=== PATIENT | female | born 1940 | race Caucasian/White ===

== ENCOUNTER 2019-08-06 10:25 | Inpatient (IN) ==
[2019-08-06] MEDS ORDERED: Acetaminophen 325 MG TABLET PO PRN (13:47)
[2019-08-06] MEDS ORDERED: Naloxone 0.4 MG/ML INJ IVP PRN (13:47)
[2019-08-06] MEDS ORDERED: cefTRIAXone 1,000 MG in 0.9 % Sodium Chloride Mini Bag 100 ML IVPB ONE (14:23)
[2019-08-06] MEDS ORDERED: Albumin 25% 25gram/100mL 25 GM/100 ML IV.SOLN IVPB ONE (15:47)
[2019-08-06] MEDS: *HR* OxyCODONE Immed Rel 5 MG TABLET PO PRN ×2 (15:49→21:55)
[2019-08-06] MEDS ORDERED: 0.9 % Sodium Chloride 1,000 ML IVC SCH (16:00)
[2019-08-06] MEDS ORDERED: cefTRIAXone 1,000 MG in Water for inj. (sterile) 10 ML IVP ONE (16:02)
[2019-08-06] MEDS ORDERED: 0.9 % Sodium Chloride 1,000 ML ONE (16:57)
[2019-08-06] MEDS: hydrALAZINE 25 MG TABLET PO SCH ×2 (17:13→21:42)
[2019-08-06] MEDS: *HR* HYDROcodone/Acet 5/325 mg TABLET PO PRN (17:33)
[2019-08-06] MEDS: Insulin LISPRO 300 UNITS/3 ML VIAL SQ SCH ×2 (17:35→21:39)
[2019-08-06 18:32] LABS: Bilirubin,Urine Negative (Negative); Blood,Urine Negative (Negative); Clarity,Urine Cloudy (Clear); Color,Urine Yellow (Yellow); Glucose,Urine (UA) Normal (Normal); Ketones,Urine Negative (Negative); Leukocyte Esterase,Urine Large (Negative); Nitrite,Urine Negative (Negative); Protein,Urine Negative (Neg-Trace); Specific Gravity,Urine 1.015 (1.010-1.025); Urobilinogen,Urine Normal (Normal)
[2019-08-06 18:34] LABS: Bacteria,Urine None Seen per hpf (None-Few); Hyaline Casts,Urine None Seen per lpf (None-Few); Squamous Epithelial Cell,Urine Moderate per lpf (None-Few); WBC,Urine TNTC per hpf (0-3)
[2019-08-06 18:45] LABS: Sodium, Urine 73.5 mEq/L
[2019-08-06] MEDS ORDERED: 0.9 % Sodium Chloride 500 ML IVC SCH (19:45)
[2019-08-07] MEDS: *HR* HYDROcodone/Acet 5/325 mg TABLET PO PRN ×2 (00:38→09:17)
[2019-08-07] MEDS: *HR* OxyCODONE Immed Rel 5 MG TABLET PO PRN ×3 (04:46→21:15)
[2019-08-07 06:23] LABS: Basophils % 0.3 %; Eosinophils # 0.2 K/mcL (0.0-0.6); Hematocrit 26.6 % (35.3-44.9); Hemoglobin 8.4 g/dL (11.5-15.4); Immature Granulocytes % 1.6 % (0-4); Immature Platelets 6.9 % (1.1-6.1); Lymphocytes % 27.1 %; Mean Corpuscular HGB Conc 31.6 g/dL (31.6-35.5); Mean Corpuscular Hemoglobin 34.9 pg (28.0-33.3); Mean Corpuscular Volume 110.4 fL (83.0-100.0); Mean Platelet Volume 12.4 fL (9.4-12.4); Monocytes # 0.3 K/mcL (0.0-1.3); Monocytes % 8.6 %; Neutrophils # 2.2 K/mcL (1.6-8.9); Red Blood Count 2.41 M/mcL (3.82-4.97); Red Cell Distribution Width 13.8 % (11.5-14.5); Segmented Neutrophils % 58.4 %; White Blood Count 3.7 K/mcL (4.3-11.1)
[2019-08-07 06:36] LABS: Platelet Count 89 K/mcL (140-400)
[2019-08-07 06:39] LABS: Albumin 3.2 g/dL (3.5-5.7); Albumin/Globulin Ratio 1.5 (1.1-2.2); Bilirubin,Total 0.5 mg/dL (0.3-1.0); Calcium 8.7 mg/dL (8.6-10.3); Globulin 2.2 g/dL (2.4-3.5); Potassium 5.1 mEq/L (3.5-5.1); Total Protein 5.4 g/dL (6.4-8.9)
[2019-08-07 06:49] LABS: % Iron Saturation 16 % (15-50); Iron 30 mcg/dL (50-170); Lactate Dehydrogenase 194 Units/L (140-271); Transferrin 136 mg/dL (203-362); Troponin I < 0.03 ng/mL (< 0.04)
[2019-08-07 06:58] LABS: Ferritin 50 ng/mL (10-120)
[2019-08-07 07:02] LABS: Folate 9.8 ng/mL (3.0-16.0)
[2019-08-07] MEDS: Tiotropium 18 MCG inhalation IH SCH (07:30)
[2019-08-07 07:56] LABS: Anisocytosis 1+ (Not Present)
[2019-08-07 07:57] LABS: Macrocytosis Present (Not Present)
[2019-08-07 07:58] LABS: Polychromasia 1+ (Not Present)
[2019-08-07] MEDS ORDERED: cefTRIAXone 2,000 MG in Water for inj. (sterile) 20 ML IVP SCH (08:00)
[2019-08-07] MEDS ORDERED: cefTRIAXone 2,000 MG in 0.9 % Sodium Chloride Mini Bag 100 ML IVPB SCH (08:00)
[2019-08-07 08:04] LABS: Large Platelets Present (Not Present); Platelet Estimate Slight Decrease (Normal)
[2019-08-07] MEDS ORDERED: D5% in Water 1,000 ML IVC PRN (08:08)
[2019-08-07] MEDS ORDERED: *HR* Dextrose 50 % in Water (Syg) 50 ML SYRINGE IVP PRN (08:08)
[2019-08-07] MEDS ORDERED: Dextrose Gel 15 GM/37.5 ML TUBE PO PRN ×2 (08:08)
[2019-08-07] MEDS ORDERED: amLODIPine 5 MG TABLET PO SCH (09:00)
[2019-08-07] MEDS ORDERED: hydrALAZINE 25 MG TABLET PO SCH (09:00)
[2019-08-07] MEDS: Isosorbide MONOnitrate (24 HR) 60 MG TAB.ER.24H PO SCH (09:17)
[2019-08-07] MEDS: Aspirin Enteric Coated 81 MG Tablet PO SCH (09:18)
[2019-08-07] MEDS: Insulin LISPRO 300 UNITS/3 ML VIAL SQ SCH ×4 (09:18→20:48)
[2019-08-07] MEDS: cefTRIAXone 2,000 MG in 0.9 % Sodium Chloride Mini Bag 100 ML IVPB SCH (09:18)
[2019-08-07] MEDS ORDERED: Albumin 25% 25gram/100mL 25 GM/100 ML IV.SOLN IVPB ONE (11:00)
[2019-08-07] MEDS ORDERED: 0.9 % Sodium Chloride 1,000 ML IVC SCH (11:00)
[2019-08-07] MEDS ORDERED: amLODIPine 5 MG TABLET PO ONE (12:10)
[2019-08-07] MEDS ORDERED: 0.9 % Sodium Chloride 500 ML IVC SCH (12:28)
[2019-08-07] MEDS: hydrALAZINE 25 MG TABLET PO SCH ×2 (16:06→20:45)
[2019-08-07] MEDS ORDERED: Acetaminophen IV 1,000 MG/100 ML INFUS..BTL IVPB ONE (23:50)
[2019-08-08] MEDS ORDERED: methylPREDNISolone 125 MG/2 ML VIAL IVP ONE (00:13)
[2019-08-08 00:15] LABS: ABG Base Excess 2 mEq/L (-2 to 3); ABG HCO3 29 mEq/L (21-27); ABG Oxygen Saturation 94 % (95-98); ABG PCO2 58 mmHg (35-45); ABG PO2 80 mmHg (85-104); ABG TCO2 31 mEq/L (20-26)
[2019-08-08] MEDS: Ipratropium/Albuterol Neb 3 ML IH SCH ×6 (00:27→20:25)
[2019-08-08] MEDS ORDERED: *HR* LORazepam 2 MG/ML VIAL IVP ONE (00:45)
[2019-08-08 06:42] LABS: Basophils % 0.2 %; Eosinophils % 0.4 %; Hematocrit 30.1 % (35.3-44.9); Hemoglobin 9.5 g/dL (11.5-15.4); Immature Granulocytes % 1.8 % (0-4); Lymphocytes # 0.4 K/mcL (0.6-4.6); Lymphocytes % 8.5 %; Mean Corpuscular HGB Conc 31.6 g/dL (31.6-35.5); Mean Corpuscular Hemoglobin 34.5 pg (28.0-33.3); Mean Corpuscular Volume 109.5 fL (83.0-100.0); Mean Platelet Volume 12.7 fL (9.4-12.4); Monocytes # 0.1 K/mcL (0.0-1.3); Monocytes % 2.2 %; Neutrophils # 3.9 K/mcL (1.6-8.9); Platelet Count 103 K/mcL (140-400); Red Blood Count 2.75 M/mcL (3.82-4.97); Red Cell Distribution Width 13.8 % (11.5-14.5); Segmented Neutrophils % 86.9 %; White Blood Count 4.5 K/mcL (4.3-11.1)
[2019-08-08 06:58] LABS: Calcium 9.5 mg/dL (8.6-10.3); Potassium 6.2 mEq/L (3.5-5.1)
[2019-08-08] MEDS: Tiotropium 18 MCG inhalation IH SCH (07:24)
[2019-08-08] MEDS: hydrALAZINE 25 MG TABLET PO SCH ×3 (10:21→20:57)
[2019-08-08] MEDS: Aspirin Enteric Coated 81 MG Tablet PO SCH (10:22)
[2019-08-08] MEDS: amLODIPine 5 MG TABLET PO SCH (10:22)
[2019-08-08] MEDS: Isosorbide MONOnitrate (24 HR) 60 MG TAB.ER.24H PO SCH (10:22)
[2019-08-08] MEDS: cefTRIAXone 2,000 MG in 0.9 % Sodium Chloride Mini Bag 100 ML IVPB SCH (10:23)
[2019-08-08] MEDS: Insulin LISPRO 300 UNITS/3 ML VIAL SQ SCH ×4 (10:25→21:09)
[2019-08-08] MEDS: *HR* HYDROcodone/Acet 5/325 mg TABLET PO PRN (10:39)
[2019-08-08 11:53] LABS: Calcium 9.4 mg/dL (8.6-10.3); Potassium 5.6 mEq/L (3.5-5.1)
[2019-08-08] MEDS: *HR* OxyCODONE Immed Rel 5 MG TABLET PO PRN (20:58)
[2019-08-09] MEDS: Ipratropium/Albuterol Neb 3 ML IH SCH ×7 (00:21→23:01)
[2019-08-09] MEDS: *HR* OxyCODONE Immed Rel 5 MG TABLET PO PRN ×3 (04:53→20:27)
[2019-08-09 04:54] LABS: Basophils % 0.2 %; Hematocrit 26.6 % (35.3-44.9); Hemoglobin 8.4 g/dL (11.5-15.4); Mean Corpuscular HGB Conc 31.6 g/dL (31.6-35.5); Red Cell Distribution Width 13.6 % (11.5-14.5)
[2019-08-09 04:55] LABS: Eosinophils # 0.1 K/mcL (0.0-0.6); Eosinophils % 0.9 %; Immature Granulocytes % 1.3 % (0-4); Immature Platelets 7.1 % (1.1-6.1); Lymphocytes # 0.6 K/mcL (0.6-4.6); Lymphocytes % 11.3 %; Mean Corpuscular Hemoglobin 34.9 pg (28.0-33.3); Mean Corpuscular Volume 110.4 fL (83.0-100.0); Mean Platelet Volume 12.3 fL (9.4-12.4); Monocytes # 0.2 K/mcL (0.0-1.3); Monocytes % 4.5 %; Neutrophils # 4.3 K/mcL (1.6-8.9); Platelet Count 101 K/mcL (140-400); Red Blood Count 2.41 M/mcL (3.82-4.97); Segmented Neutrophils % 81.8 %; White Blood Count 5.3 K/mcL (4.3-11.1)
[2019-08-09 05:11] LABS: Calcium 9.2 mg/dL (8.6-10.3); Potassium 5.5 mEq/L (3.5-5.1)
[2019-08-09 05:50] LABS: Macrocytosis Present (Not Present); Platelet Estimate Slight Decrease (Normal)
[2019-08-09] MEDS: Tiotropium 18 MCG inhalation IH SCH (07:36)
[2019-08-09] MEDS: Insulin LISPRO 300 UNITS/3 ML VIAL SQ SCH ×4 (07:52→20:29)
[2019-08-09] MEDS: Aspirin Enteric Coated 81 MG Tablet PO SCH (08:00)
[2019-08-09] MEDS: Isosorbide MONOnitrate (24 HR) 60 MG TAB.ER.24H PO SCH (08:00)
[2019-08-09] MEDS: *HR* HYDROcodone/Acet 5/325 mg TABLET PO PRN ×2 (08:00→16:24)
[2019-08-09] MEDS: hydrALAZINE 25 MG TABLET PO SCH ×3 (08:00→20:28)
[2019-08-09] MEDS: amLODIPine 5 MG TABLET PO SCH (08:01)
[2019-08-09] MEDS: cefTRIAXone 2,000 MG in 0.9 % Sodium Chloride Mini Bag 100 ML IVPB SCH (08:01)
[2019-08-09 12:04] LABS: Bilirubin,Urine Negative (Negative); Blood,Urine Negative (Negative); Clarity,Urine Clear (Clear); Color,Urine Yellow (Yellow); Glucose,Urine (UA) Normal (Normal); Ketones,Urine Negative (Negative); Leukocyte Esterase,Urine Negative (Negative); Nitrite,Urine Negative (Negative); PH,Urine 5.5 pH Units (5.0-8.0); Protein,Urine Negative (Neg-Trace); Specific Gravity,Urine 1.019 (1.010-1.025); Urobilinogen,Urine Normal (Normal)
[2019-08-10] MEDS: Ipratropium/Albuterol Neb 3 ML IH SCH ×5 (03:09→19:47)
[2019-08-10] MEDS: Tiotropium 18 MCG inhalation IH SCH (07:44)
[2019-08-10 07:57] LABS: Hematocrit 28.2 % (35.3-44.9)
[2019-08-10] MEDS: Insulin LISPRO 300 UNITS/3 ML VIAL SQ SCH ×4 (08:16→22:08)
[2019-08-10 08:23] LABS: Calcium 8.9 mg/dL (8.6-10.3); Potassium 5.3 mEq/L (3.5-5.1)
[2019-08-10] MEDS: Isosorbide MONOnitrate (24 HR) 60 MG TAB.ER.24H PO SCH (09:16)
[2019-08-10] MEDS: *HR* HYDROcodone/Acet 5/325 mg TABLET PO PRN (09:16)
[2019-08-10] MEDS: hydrALAZINE 25 MG TABLET PO SCH ×3 (09:17→22:09)
[2019-08-10] MEDS: cefTRIAXone 2,000 MG in 0.9 % Sodium Chloride Mini Bag 100 ML IVPB SCH (09:17)
[2019-08-10] MEDS: Aspirin Enteric Coated 81 MG Tablet PO SCH (09:17)
[2019-08-10] MEDS: amLODIPine 5 MG TABLET PO SCH (09:17)
[2019-08-10] MEDS: *HR* OxyCODONE Immed Rel 5 MG TABLET PO PRN ×2 (12:24→22:09)
[2019-08-10] MEDS ORDERED: Lactulose Oral Soln 20 GM/30 ML UDC PO ONE (13:56)
[2019-08-11] MEDS: Ipratropium/Albuterol Neb 3 ML IH SCH ×7 (00:05→23:59)
[2019-08-11 05:31] LABS: Hemoglobin 9.2 g/dL (11.5-15.4); Monocytes % 8.2 %; Red Cell Distribution Width 13.9 % (11.5-14.5)
[2019-08-11 05:33] LABS: Basophils % 0.5 %; Eosinophils # 0.2 K/mcL (0.0-0.6); Eosinophils % 4.6 %; Hematocrit 28.3 % (35.3-44.9); Immature Granulocytes % 2.6 % (0-4); Immature Platelets 7.9 % (1.1-6.1); Lymphocytes % 24.7 %; Mean Corpuscular HGB Conc 32.5 g/dL (31.6-35.5); Mean Corpuscular Hemoglobin 34.8 pg (28.0-33.3); Mean Corpuscular Volume 107.2 fL (83.0-100.0); Mean Platelet Volume 12.9 fL (9.4-12.4); Monocytes # 0.3 K/mcL (0.0-1.3); Neutrophils # 2.3 K/mcL (1.6-8.9); Red Blood Count 2.64 M/mcL (3.82-4.97); Segmented Neutrophils % 59.4 %; White Blood Count 3.9 K/mcL (4.3-11.1)
[2019-08-11 05:34] LABS: Calcium 8.9 mg/dL (8.6-10.3); Potassium 5.1 mEq/L (3.5-5.1)
[2019-08-11 05:37] LABS: Platelet Count 78 K/mcL (140-400)
[2019-08-11] MEDS: Tiotropium 18 MCG inhalation IH SCH (07:23)
[2019-08-11] MEDS: Insulin LISPRO 300 UNITS/3 ML VIAL SQ SCH ×4 (08:33→22:19)
[2019-08-11] MEDS: Isosorbide MONOnitrate (24 HR) 60 MG TAB.ER.24H PO SCH (08:56)
[2019-08-11] MEDS: hydrALAZINE 25 MG TABLET PO SCH ×3 (08:56→22:20)
[2019-08-11] MEDS: Aspirin Enteric Coated 81 MG Tablet PO SCH (08:56)
[2019-08-11] MEDS: cefTRIAXone 2,000 MG in 0.9 % Sodium Chloride Mini Bag 100 ML IVPB SCH (08:57)
[2019-08-11] MEDS: amLODIPine 5 MG TABLET PO SCH (08:57)
[2019-08-11] MEDS: Nystatin SUSP 5 ML UD.LIQ PO SCH ×3 (12:42→22:20)
[2019-08-11] MEDS ORDERED: SODIUM CHLORIDE/NAHCO3/KCL/PEG 4,000 ML SOLN.RECON PO ONE (17:00)
[2019-08-12] MEDS ORDERED: Ondansetron 4 MG/2 ML VIAL IVP ONE (02:12)
[2019-08-12] MEDS: Ipratropium/Albuterol Neb 3 ML IH SCH ×5 (03:31→20:07)
[2019-08-12] MEDS: Tiotropium 18 MCG inhalation IH SCH (07:23)
[2019-08-12] MEDS: Insulin LISPRO 300 UNITS/3 ML VIAL SQ SCH ×4 (08:21→21:57)
[2019-08-12] MEDS: Nystatin SUSP 5 ML UD.LIQ PO SCH ×4 (08:26→22:01)
[2019-08-12] MEDS: Aspirin Enteric Coated 81 MG Tablet PO SCH (08:26)
[2019-08-12] MEDS: amLODIPine 5 MG TABLET PO SCH (08:26)
[2019-08-12] MEDS: hydrALAZINE 25 MG TABLET PO SCH ×3 (08:26→22:01)
[2019-08-12] MEDS: Isosorbide MONOnitrate (24 HR) 60 MG TAB.ER.24H PO SCH (08:26)
[2019-08-12] MEDS: cefTRIAXone 2,000 MG in 0.9 % Sodium Chloride Mini Bag 100 ML IVPB SCH (08:27)
[2019-08-12] MEDS ORDERED: Furosemide 40 MG/4 ML VIAL IVP ONE (12:36)
[2019-08-12] MEDS ORDERED: Furosemide 40 MG TABLET PO ONE (14:12)
[2019-08-12] MEDS: cloNIDine HCl 0.1 MG TABLET PO SCH ×2 (14:51→22:01)
[2019-08-12] MEDS: Budesonide/Formoterol 160/4.5 1 PUFF INH IH SCH (20:07)
[2019-08-13] MEDS: Ipratropium/Albuterol Neb 3 ML IH SCH ×6 (00:06→20:03)
[2019-08-13] MEDS: Budesonide/Formoterol 160/4.5 1 PUFF INH IH SCH ×2 (07:30→20:03)
[2019-08-13] MEDS: Tiotropium 18 MCG inhalation IH SCH (07:34)
[2019-08-13 08:17] LABS: Basophils % 0.3 %
[2019-08-13 08:19] LABS: Eosinophils # 0.1 K/mcL (0.0-0.6); Eosinophils % 3.7 %; Hematocrit 27.3 % (35.3-44.9); Hemoglobin 8.9 g/dL (11.5-15.4); Immature Platelets 8.8 % (1.1-6.1); Lymphocytes # 0.5 K/mcL (0.6-4.6); Lymphocytes % 13.8 %; Mean Corpuscular HGB Conc 32.6 g/dL (31.6-35.5); Mean Corpuscular Hemoglobin 34.5 pg (28.0-33.3); Mean Corpuscular Volume 105.8 fL (83.0-100.0); Mean Platelet Volume 11.7 fL (9.4-12.4); Monocytes # 0.3 K/mcL (0.0-1.3); Monocytes % 7.8 %; Nucleated Red Blood Cells 0.5 /100 WBC (0); Red Blood Count 2.58 M/mcL (3.82-4.97); Red Cell Distribution Width 13.5 % (11.5-14.5); Segmented Neutrophils % 69.4 %; White Blood Count 3.8 K/mcL (4.3-11.1)
[2019-08-13 08:23] LABS: Neutrophils # 2.6 K/mcL (1.6-8.9); Platelet Count 76 K/mcL (140-400)
[2019-08-13 08:42] LABS: Calcium 8.9 mg/dL (8.6-10.3); Potassium 4.1 mEq/L (3.5-5.1)
[2019-08-13] MEDS: Insulin LISPRO 300 UNITS/3 ML VIAL SQ SCH ×4 (08:52→20:50)
[2019-08-13] MEDS: Isosorbide MONOnitrate (24 HR) 60 MG TAB.ER.24H PO SCH (09:39)
[2019-08-13] MEDS: cloNIDine HCl 0.1 MG TABLET PO SCH ×3 (09:39→20:29)
[2019-08-13] MEDS: amLODIPine 5 MG TABLET PO SCH (09:39)
[2019-08-13] MEDS: hydrALAZINE 25 MG TABLET PO SCH ×3 (09:39→20:29)
[2019-08-13] MEDS: cefTRIAXone 2,000 MG in 0.9 % Sodium Chloride Mini Bag 100 ML IVPB SCH (09:40)
[2019-08-13] MEDS: Aspirin Enteric Coated 81 MG Tablet PO SCH (09:40)
[2019-08-13] MEDS: Nystatin SUSP 5 ML UD.LIQ PO SCH ×4 (09:40→20:31)
[2019-08-13] MEDS ORDERED: Furosemide 40 MG TABLET PO ONE (12:44)
[2019-08-13] MEDS ORDERED: Lidocaine -MPF 2% 2 ML VIAL ONE (12:56)
[2019-08-13] MEDS ORDERED: Propofol 500 MG/50 ML INFUS..BTL ONE (12:56)
[2019-08-13] MEDS ORDERED: *HR* Propofol 200 MG/20 ML VIAL IVP ONE (12:56)
[2019-08-13] MEDS: *HR* OxyCODONE Immed Rel 5 MG TABLET PO PRN (20:29)
[2019-08-14] MEDS: Ipratropium/Albuterol Neb 3 ML IH SCH ×3 (00:09→07:36)
[2019-08-14 06:17] LABS: Basophils % 0.4 %; Mean Corpuscular Hemoglobin 34.3 pg (28.0-33.3); Red Cell Distribution Width 13.4 % (11.5-14.5)
[2019-08-14 06:19] LABS: Eosinophils # 0.1 K/mcL (0.0-0.6); Eosinophils % 4.6 %; Hematocrit 26.7 % (35.3-44.9); Hemoglobin 8.5 g/dL (11.5-15.4); Immature Granulocytes % 6.1 % (0-4); Immature Platelets 10.4 % (1.1-6.1); Lymphocytes # 0.7 K/mcL (0.6-4.6); Lymphocytes % 27.2 %; Mean Corpuscular HGB Conc 31.8 g/dL (31.6-35.5); Mean Corpuscular Volume 107.7 fL (83.0-100.0); Mean Platelet Volume 12.6 fL (9.4-12.4); Monocytes # 0.3 K/mcL (0.0-1.3); Monocytes % 9.6 %; Neutrophils # 1.4 K/mcL (1.6-8.9); Red Blood Count 2.48 M/mcL (3.82-4.97); Segmented Neutrophils % 52.1 %; White Blood Count 2.6 K/mcL (4.3-11.1)
[2019-08-14 06:27] LABS: Platelet Count 68 K/mcL (140-400)
[2019-08-14 06:45] LABS: Calcium 8.7 mg/dL (8.6-10.3); Magnesium 1.6 mg/dL (1.6-2.6); Phosphorous 3.8 mg/dL (2.7-4.5); Potassium 4.3 mEq/L (3.5-5.1)
[2019-08-14 07:25] VITALS: BP 152/62
[2019-08-14] MEDS: Budesonide/Formoterol 160/4.5 1 PUFF INH IH SCH (07:36)
[2019-08-14] MEDS: Insulin LISPRO 300 UNITS/3 ML VIAL SQ SCH (07:43)
[2019-08-14] MEDS: Nystatin SUSP 5 ML UD.LIQ PO SCH (08:03)
[2019-08-14] MEDS: hydrALAZINE 25 MG TABLET PO SCH (08:03)
[2019-08-14] MEDS: Aspirin Enteric Coated 81 MG Tablet PO SCH (08:03)
[2019-08-14] MEDS: cloNIDine HCl 0.1 MG TABLET PO SCH (08:04)
[2019-08-14] MEDS: amLODIPine 5 MG TABLET PO SCH (08:04)
[2019-08-14] MEDS: Isosorbide MONOnitrate (24 HR) 60 MG TAB.ER.24H PO SCH (08:04)
[2019-08-14] MEDS: cefTRIAXone 2,000 MG in 0.9 % Sodium Chloride Mini Bag 100 ML IVPB SCH (08:05)
[2019-08-14] MEDS ORDERED: Tiotropium 18 MCG inhalation IH SCH (10:00)
== END 2019-08-14 10:25 | DRG 871 ==
LOC: 2ANU → SUATTDRO 12:24 → 2ANU 08-08 00:25
PROVIDERS: ADMIT Internal Medicine; ATTEND Internal Medicine

== ENCOUNTER 2019-11-23 14:19 | Inpatient (IN) ==
[2019-11-23] MEDS ORDERED: Ondansetron 4 MG/2 ML VIAL IVP PRN (17:28)
[2019-11-23] MEDS ORDERED: Naloxone 0.4 MG/ML INJ IVP PRN (17:28)
[2019-11-23] MEDS ORDERED: 0.9 % Sodium Chloride 1,000 ML IVC SCH (17:45)
[2019-11-23] MEDS ORDERED: D5% in Water 1,000 ML IVC PRN (17:50)
[2019-11-23] MEDS ORDERED: *HR* Dextrose 50 % in Water (Syg) 50 ML SYRINGE IVP PRN (17:50)
[2019-11-23] MEDS ORDERED: Dextrose Gel 15 GM/37.5 ML TUBE PO PRN ×2 (17:50)
[2019-11-23] MEDS ORDERED: Ipratropium/Albuterol Neb 3 ML IH PRN (17:52)
[2019-11-23] MEDS: predniSONE 20 MG TABLET PO SCH (18:41)
[2019-11-23] MEDS: Insulin LISPRO 300 UNITS/3 ML VIAL SQ SCH ×2 (18:41→21:19)
[2019-11-23] MEDS: amLODIPine 5 MG TABLET PO SCH (18:41)
[2019-11-23] MEDS: Azithromycin 500 MG in 0.9 % Sodium Chloride 250 ML IVPB SCH (18:43)
[2019-11-23 19:05] LABS: Adenovirus Not Detected (Not Detect); Bordetella Pertussis Not Detected (Not Detect); Chlamydophila pneumoniae Not Detected (Not Detect); Coronavirus 229E Not Detected (Not Detect); Coronavirus HKU1 Not Detected (Not Detect); Coronavirus NL63 Not Detected (Not Detect); Coronavirus OC43 Not Detected (Not Detect); Human Metapneumovirus Not Detected (Not Detect); Human Rhinovirus/Enterovirus Not Detected (Not Detect); Influenza A Subtype 2009 H1 Not Detected (Not Detect); Influenza B Not Detected (Not Detect); Mycoplasma pneumoniae Not Detected (Not Detect); Parainfluenza Virus 1 Not Detected (Not Detect); Parainfluenza Virus 2 Not Detected (Not Detect); Parainfluenza Virus 3 Not Detected (Not Detect); Parainfluenza Virus 4 Not Detected (Not Detect); Respiratory Syncytial Virus Not Detected (Not Detect)
[2019-11-23 19:35] LABS: Bilirubin,Urine Negative (Negative); Blood,Urine Negative (Negative); Clarity,Urine Clear (Clear); Color,Urine Yellow (Yellow); Glucose,Urine (UA) Normal (Normal); Ketones,Urine Negative (Negative); Leukocyte Esterase,Urine Negative (Negative); Nitrite,Urine Negative (Negative); PH,Urine 5.5 pH Units (5.0-8.0); Protein,Urine Negative (Neg-Trace); Specific Gravity,Urine 1.013 (1.010-1.025); Urobilinogen,Urine Normal (Normal)
[2019-11-23] MEDS: cloNIDine HCL 0.1 MG TABLET PO SCH (21:18)
[2019-11-23] MEDS: *HR* Heparin 5,000 UNIT/ML VIAL SQ SCH (21:18)
[2019-11-23] MEDS: hydrALAZINE 25 MG TABLET PO SCH (21:18)
[2019-11-24] MEDS: *HR* Heparin 5,000 UNIT/ML VIAL SQ SCH (05:40)
[2019-11-24 06:02] LABS: Hematocrit 27.8 % (35.3-44.9); Hemoglobin 8.7 g/dL (11.5-15.4); Immature Platelets 11.1 % (1.1-6.1); Lymphocytes # 0.5 K/mcL (0.6-4.6); Mean Corpuscular HGB Conc 31.3 g/dL (31.6-35.5); Mean Corpuscular Hemoglobin 34.5 pg (28.0-33.3); Mean Corpuscular Volume 110.3 fL (83.0-100.0); Mean Platelet Volume 13.1 fL (9.4-12.4); Red Blood Count 2.52 M/mcL (3.82-4.97); Red Cell Distribution Width 15.5 % (11.5-14.5); White Blood Count 3.1 K/mcL (4.3-11.1)
[2019-11-24 06:07] LABS: Platelet Count 77 K/mcL (140-400)
[2019-11-24 06:19] LABS: Potassium 4.2 mEq/L (3.5-5.1)
[2019-11-24 06:27] LABS: Anisocytosis 1+ (Not Present); Macrocytosis Present (Not Present); Neutrophils # 2.6 K/mcL (1.6-8.9); Platelet Estimate Slight Decrease (Normal)
[2019-11-24] MEDS: predniSONE 20 MG TABLET PO SCH (08:43)
[2019-11-24] MEDS: carvediloL 25 MG TABLET PO SCH ×2 (08:43→17:05)
[2019-11-24] MEDS: cloNIDine HCL 0.1 MG TABLET PO SCH ×3 (08:43→21:35)
[2019-11-24] MEDS: Aspirin 81 MG TAB.CHEW PO SCH (08:43)
[2019-11-24] MEDS: amLODIPine 5 MG TABLET PO SCH (08:43)
[2019-11-24] MEDS: allopurinoL 100 MG TABLET PO SCH (08:44)
[2019-11-24] MEDS: hydrALAZINE 25 MG TABLET PO SCH ×3 (08:44→21:35)
[2019-11-24] MEDS: 0.9 % Sodium Chloride 1,000 ML IVC SCH (08:45)
[2019-11-24] MEDS: Isosorbide MONOnitrate (24 HR) 60 MG TAB.ER.24H PO SCH (08:46)
[2019-11-24] MEDS: Insulin LISPRO 300 UNITS/3 ML VIAL SQ SCH ×4 (08:48→21:36)
[2019-11-24] MEDS: Ipratropium/Albuterol Neb 3 ML IH SCH ×3 (10:26→22:26)
[2019-11-24] MEDS: *HR* OxyCODONE Immed Rel 5 MG TABLET PO PRN (12:07)
[2019-11-24 15:02] LABS: Potassium 4.1 mEq/L (3.5-5.1)
[2019-11-24] MEDS: Azithromycin 500 MG in 0.9 % Sodium Chloride 250 ML IVPB SCH (17:09)
[2019-11-25] MEDS: 0.9 % Sodium Chloride 1,000 ML IVC SCH (01:51)
[2019-11-25 06:15] LABS: Eosinophils % 0.3 %
[2019-11-25 06:17] LABS: Basophils % 0.2 %; Hematocrit 27.2 % (35.3-44.9); Hemoglobin 8.7 g/dL (11.5-15.4); Immature Granulocytes % 1.3 % (0-4); Immature Platelets 11.3 % (1.1-6.1); Lymphocytes # 0.6 K/mcL (0.6-4.6); Lymphocytes % 9.4 %; Mean Corpuscular Hemoglobin 34.8 pg (28.0-33.3); Mean Corpuscular Volume 108.8 fL (83.0-100.0); Mean Platelet Volume 12.9 fL (9.4-12.4); Monocytes # 0.3 K/mcL (0.0-1.3); Monocytes % 4.9 %; Neutrophils # 5.2 K/mcL (1.6-8.9); Red Cell Distribution Width 15.4 % (11.5-14.5); Segmented Neutrophils % 83.9 %; White Blood Count 6.2 K/mcL (4.3-11.1)
[2019-11-25 06:18] LABS: Platelet Count 86 K/mcL (140-400)
[2019-11-25 06:26] LABS: Calcium 8.7 mg/dL (8.6-10.3); Potassium 4.1 mEq/L (3.5-5.1)
[2019-11-25] MEDS: Nitroglycerin 0.4 MG TAB.SUBL SL PRN ×2 (06:39→06:54)
[2019-11-25] MEDS: Ipratropium/Albuterol Neb 3 ML IH SCH ×3 (07:47→22:03)
[2019-11-25] MEDS: cloNIDine HCL 0.1 MG TABLET PO SCH ×3 (08:25→19:52)
[2019-11-25] MEDS: Isosorbide MONOnitrate (24 HR) 60 MG TAB.ER.24H PO SCH (08:25)
[2019-11-25] MEDS: Aspirin 81 MG TAB.CHEW PO SCH (08:25)
[2019-11-25] MEDS: allopurinoL 100 MG TABLET PO SCH (08:25)
[2019-11-25] MEDS: amLODIPine 5 MG TABLET PO SCH (08:25)
[2019-11-25] MEDS: Insulin LISPRO 300 UNITS/3 ML VIAL SQ SCH ×4 (08:26→20:01)
[2019-11-25] MEDS: carvediloL 25 MG TABLET PO SCH ×2 (08:26→15:43)
[2019-11-25] MEDS: hydrALAZINE 25 MG TABLET PO SCH ×3 (08:26→19:52)
[2019-11-25] MEDS: predniSONE 20 MG TABLET PO SCH (08:26)
[2019-11-25] MEDS: *HR* OxyCODONE Immed Rel 5 MG TABLET PO PRN ×2 (15:42→23:47)
[2019-11-25] MEDS: Azithromycin 250 MG TABLET PO SCH (15:43)
[2019-11-25] MEDS: Insulin DETEMIR 100 UNIT/ML X5UNITS SQ SCH (19:52)
[2019-11-25] MEDS: Methyl Salicylate/Menthol 57 APPL/57 GM TUBE TP PRN (19:54)
[2019-11-26 04:41] LABS: Hematocrit 28.7 % (35.3-44.9); Hemoglobin 8.9 g/dL (11.5-15.4); Immature Platelets 9.8 % (1.1-6.1); Mean Platelet Volume 12.3 fL (9.4-12.4); Red Blood Count 2.54 M/mcL (3.82-4.97); Red Cell Distribution Width 15.4 % (11.5-14.5); White Blood Count 7.6 K/mcL (4.3-11.1)
[2019-11-26 04:53] LABS: Platelet Count 90 K/mcL (140-400)
[2019-11-26 04:59] LABS: Potassium 4.2 mEq/L (3.5-5.1)
[2019-11-26 06:06] LABS: Eosinophils # 0.2 K/mcL (0.0-0.6); Lymphocytes # 0.6 K/mcL (0.6-4.6); Monocytes # 0.3 K/mcL (0.0-1.3); Neutrophils # 6.5 K/mcL (1.6-8.9); Platelet Estimate Slight Decrease (Normal)
[2019-11-26] MEDS: allopurinoL 100 MG TABLET PO SCH (07:41)
[2019-11-26] MEDS: Aspirin 81 MG TAB.CHEW PO SCH (07:41)
[2019-11-26] MEDS: carvediloL 25 MG TABLET PO SCH ×2 (07:41→16:32)
[2019-11-26] MEDS: predniSONE 20 MG TABLET PO SCH (07:41)
[2019-11-26] MEDS: Azithromycin 250 MG TABLET PO SCH (07:41)
[2019-11-26] MEDS: Isosorbide MONOnitrate (24 HR) 60 MG TAB.ER.24H PO SCH (07:41)
[2019-11-26] MEDS: hydrALAZINE 25 MG TABLET PO SCH ×3 (07:41→20:08)
[2019-11-26] MEDS: cloNIDine HCL 0.1 MG TABLET PO SCH ×3 (07:41→20:10)
[2019-11-26] MEDS: amLODIPine 5 MG TABLET PO SCH (07:41)
[2019-11-26] MEDS: Insulin LISPRO 300 UNITS/3 ML VIAL SQ SCH ×4 (07:42→20:11)
[2019-11-26] MEDS: Methyl Salicylate/Menthol 57 APPL/57 GM TUBE TP PRN ×2 (07:47→23:17)
[2019-11-26] MEDS: Ipratropium/Albuterol Neb 3 ML IH SCH ×3 (07:51→22:13)
[2019-11-26] MEDS ORDERED: Furosemide 20 MG TABLET PO ONE (12:12)
[2019-11-26] MEDS: *HR* OxyCODONE Immed Rel 5 MG TABLET PO PRN (16:32)
[2019-11-26] MEDS: Insulin DETEMIR 100 UNIT/ML X5UNITS SQ SCH (20:10)
[2019-11-27 05:08] LABS: Calcium 8.9 mg/dL (8.6-10.3); Potassium 4.1 mEq/L (3.5-5.1)
[2019-11-27] MEDS: Ipratropium/Albuterol Neb 3 ML IH SCH ×5 (07:51→23:58)
[2019-11-27] MEDS: hydrALAZINE 25 MG TABLET PO SCH ×3 (08:14→22:34)
[2019-11-27] MEDS: cloNIDine HCL 0.1 MG TABLET PO SCH ×3 (08:14→22:33)
[2019-11-27] MEDS: carvediloL 25 MG TABLET PO SCH ×2 (08:15→16:34)
[2019-11-27] MEDS: predniSONE 20 MG TABLET PO SCH (08:15)
[2019-11-27] MEDS: Azithromycin 250 MG TABLET PO SCH (08:15)
[2019-11-27] MEDS: Aspirin 81 MG TAB.CHEW PO SCH (08:15)
[2019-11-27] MEDS: Sennosides 8.6 MG TABLET PO SCH ×2 (08:15→22:34)
[2019-11-27] MEDS: amLODIPine 5 MG TABLET PO SCH (08:16)
[2019-11-27] MEDS: Isosorbide MONOnitrate (24 HR) 60 MG TAB.ER.24H PO SCH (08:16)
[2019-11-27] MEDS: allopurinoL 100 MG TABLET PO SCH (08:16)
[2019-11-27] MEDS: Insulin LISPRO 300 UNITS/3 ML VIAL SQ SCH ×6 (08:17→22:35)
[2019-11-27] MEDS ORDERED: Furosemide 20 MG/2 ML VIAL IVP SCH (09:00)
[2019-11-27 12:42] LABS: ABG Base Excess 4 mEq/L (-2 to 3); ABG HCO3 27 mEq/L (21-27); ABG Oxygen Saturation 92 % (95-98); ABG PCO2 38 mmHg (35-45); ABG PH 7.47 pH Units (7.32-7.45); ABG PO2 60 mmHg (85-104); ABG TCO2 29 mEq/L (20-26)
[2019-11-27] MEDS: MethylPREDNISolone 40 MG/ML VIAL IVP SCH (14:03)
[2019-11-27] MEDS ORDERED: Perflutren Lipid Microsphere 1.3 ML in 0.9 % Sodium Chloride 8.7 ML IVP ONE (15:25)
[2019-11-27] MEDS ORDERED: Ipratropium Neb 0.5 MG NEBULIZER IH PRN (16:29)
[2019-11-27] MEDS: levoFLOXacin 750 MG/150 ML 750 MG/150 ML BAG IVPB SCH (16:33)
[2019-11-27] MEDS: *HR* OxyCODONE Immed Rel 5 MG TABLET PO PRN (16:48)
[2019-11-27] MEDS: Insulin DETEMIR 100 UNIT/ML X5UNITS SQ SCH (22:34)
[2019-11-28] MEDS: Ipratropium/Albuterol Neb 3 ML IH SCH ×5 (04:13→20:09)
[2019-11-28 04:57] LABS: Potassium 4.5 mEq/L (3.5-5.1)
[2019-11-28] MEDS: cloNIDine HCL 0.1 MG TABLET PO SCH ×3 (08:03→20:50)
[2019-11-28] MEDS: Sennosides 8.6 MG TABLET PO SCH ×2 (08:03→20:50)
[2019-11-28] MEDS: Isosorbide MONOnitrate (24 HR) 60 MG TAB.ER.24H PO SCH (08:03)
[2019-11-28] MEDS: carvediloL 25 MG TABLET PO SCH ×2 (08:04→16:12)
[2019-11-28] MEDS: hydrALAZINE 25 MG TABLET PO SCH ×3 (08:04→20:50)
[2019-11-28] MEDS: amLODIPine 5 MG TABLET PO SCH (08:04)
[2019-11-28] MEDS: Aspirin 81 MG TAB.CHEW PO SCH (08:04)
[2019-11-28] MEDS: allopurinoL 100 MG TABLET PO SCH (08:04)
[2019-11-28] MEDS: MethylPREDNISolone 40 MG/ML VIAL IVP SCH (08:04)
[2019-11-28] MEDS: Insulin LISPRO 300 UNITS/3 ML VIAL SQ SCH ×7 (08:06→20:46)
[2019-11-28 08:40] LABS: Eosinophils % 0.6 %; Hemoglobin 8.2 g/dL (11.5-15.4); Red Cell Distribution Width 14.6 % (11.5-14.5)
[2019-11-28 08:42] LABS: Basophils % 0.4 %; Hematocrit 25.4 % (35.3-44.9); Immature Platelets 11.4 % (1.1-6.1); Lymphocytes # 0.4 K/mcL (0.6-4.6); Lymphocytes % 6.8 %; Mean Corpuscular HGB Conc 32.3 g/dL (31.6-35.5); Mean Corpuscular Hemoglobin 35.2 pg (28.0-33.3); Mean Platelet Volume 13.3 fL (9.4-12.4); Monocytes # 0.3 K/mcL (0.0-1.3); Monocytes % 5.9 %; Neutrophils # 4.6 K/mcL (1.6-8.9); Nucleated Red Blood Cells 0.4 /100 WBC (0); Red Blood Count 2.33 M/mcL (3.82-4.97); Segmented Neutrophils % 84.3 %; White Blood Count 5.4 K/mcL (4.3-11.1)
[2019-11-28 09:02] LABS: Platelet Count 72 K/mcL (140-400)
[2019-11-28] MEDS: Furosemide 40 MG/4 ML VIAL IVP SCH (09:38)
[2019-11-28] MEDS ORDERED: Acetaminophen 325 MG TABLET PO PRN (10:44)
[2019-11-28] MEDS ORDERED: Furosemide 40 MG/4 ML VIAL IVP ONE (16:36)
[2019-11-28] MEDS ORDERED: methylPREDNISolone 125 MG/2 ML VIAL IVP ONE (16:36)
[2019-11-28] MEDS ORDERED: *HR* Heparin 5,000 UNIT/ML VIAL SQ SCH (18:00)
[2019-11-28] MEDS: *HR* OxyCODONE Immed Rel 5 MG TABLET PO PRN (20:50)
[2019-11-28] MEDS: Insulin DETEMIR 100 UNIT/ML X5UNITS SQ SCH (20:54)
[2019-11-29] MEDS: Ipratropium/Albuterol Neb 3 ML IH SCH ×7 (00:01→23:44)
[2019-11-29 01:25] LABS: Potassium 3.9 mEq/L (3.5-5.1)
[2019-11-29] MEDS: MethylPREDNISolone 40 MG/ML VIAL IVP SCH ×2 (06:33→17:55)
[2019-11-29] MEDS: Insulin LISPRO 300 UNITS/3 ML VIAL SQ SCH ×7 (07:58→22:52)
[2019-11-29] MEDS: Furosemide 40 MG/4 ML VIAL IVP SCH (08:27)
[2019-11-29] MEDS ORDERED: *HR* Succinylcholine 200 MG/10 ML VIAL IVP ONE (10:30)
[2019-11-29] MEDS ORDERED: *HR* Propofol 200 MG/20 ML VIAL IVP ONE (10:30)
[2019-11-29] MEDS ORDERED: Ondansetron 4 MG/2 ML VIAL ONE (10:30)
[2019-11-29] MEDS ORDERED: Lidocaine -MPF 2% 2 ML VIAL ONE (10:30)
[2019-11-29] MEDS ORDERED: Dexamethasone 4 MG/ML VIAL ONE (10:35)
[2019-11-29] MEDS ORDERED: *HR* Labetalol 20 MG/4 ML SYRINGE IVP ONE (11:12)
[2019-11-29] MEDS ORDERED: Albuterol 2.5 MG/3 ML NEBULIZER ONE (11:35)
[2019-11-29] MEDS ORDERED: Albuterol 2.5 MG/3 ML NEBULIZER IH ONE (11:38)
[2019-11-29] MEDS: allopurinoL 100 MG TABLET PO SCH (12:20)
[2019-11-29] MEDS: cloNIDine HCL 0.1 MG TABLET PO SCH ×3 (12:25→23:45)
[2019-11-29] MEDS: amLODIPine 5 MG TABLET PO SCH (12:25)
[2019-11-29] MEDS: Sennosides 8.6 MG TABLET PO SCH ×2 (12:25→22:51)
[2019-11-29] MEDS: Aspirin 81 MG TAB.CHEW PO SCH (12:26)
[2019-11-29] MEDS: hydrALAZINE 25 MG TABLET PO SCH ×3 (12:26→22:45)
[2019-11-29] MEDS: Isosorbide MONOnitrate (24 HR) 60 MG TAB.ER.24H PO SCH (12:26)
[2019-11-29] MEDS: carvediloL 25 MG TABLET PO SCH ×2 (12:28→17:55)
[2019-11-29] MEDS: levoFLOXacin 750 MG/150 ML 750 MG/150 ML BAG IVPB SCH (15:32)
[2019-11-29] MEDS ORDERED: Furosemide 40 MG/4 ML VIAL IVP ONE (17:00)
[2019-11-29 19:59] LABS: Source of Body Fluid LLL BAL 1; Source of Body Fluid RML BAL
[2019-11-29 20:11] LABS: Appearance of Body Fluid Cloudy (Clear)
[2019-11-29 20:12] LABS: Appearance of Body Fluid Cloudy (Clear); Volume of Body Fluid 16 mL; Volume of Body Fluid 5 mL
[2019-11-29] MEDS: Insulin DETEMIR 100 UNIT/ML X5UNITS SQ SCH (22:50)
[2019-11-30 02:03] LABS: Hematocrit 26.1 % (35.3-44.9); Hemoglobin 8.4 g/dL (11.5-15.4); Mean Corpuscular HGB Conc 32.2 g/dL (31.6-35.5); Mean Corpuscular Volume 105.7 fL (83.0-100.0); Mean Platelet Volume 12.3 fL (9.4-12.4); Platelet Count 103 K/mcL (140-400); Red Blood Count 2.47 M/mcL (3.82-4.97); Red Cell Distribution Width 13.9 % (11.5-14.5); White Blood Count 4.2 K/mcL (4.3-11.1)
[2019-11-30 03:20] LABS: Calcium 9.1 mg/dL (8.6-10.3); Potassium 3.7 mEq/L (3.5-5.1)
[2019-11-30 03:37] LABS: Lymphocytes # 0.3 K/mcL (0.6-4.6)
[2019-11-30 03:38] LABS: Ovalocytes 1+ (Not Present); Platelet Estimate Slight Decrease (Normal)
[2019-11-30] MEDS: Ipratropium/Albuterol Neb 3 ML IH SCH ×5 (03:44→19:53)
[2019-11-30] MEDS: MethylPREDNISolone 40 MG/ML VIAL IVP SCH (06:14)
[2019-11-30] MEDS: cloNIDine HCL 0.1 MG TABLET PO SCH ×3 (08:23→20:35)
[2019-11-30] MEDS: allopurinoL 100 MG TABLET PO SCH (08:24)
[2019-11-30] MEDS: hydrALAZINE 25 MG TABLET PO SCH ×3 (08:24→20:35)
[2019-11-30] MEDS: Furosemide 40 MG/4 ML VIAL IVP SCH ×2 (08:25→16:43)
[2019-11-30] MEDS: Sennosides 8.6 MG TABLET PO SCH ×2 (08:25→20:36)
[2019-11-30] MEDS: carvediloL 25 MG TABLET PO SCH ×2 (08:25→16:43)
[2019-11-30] MEDS: amLODIPine 5 MG TABLET PO SCH (08:25)
[2019-11-30] MEDS: Isosorbide MONOnitrate (24 HR) 60 MG TAB.ER.24H PO SCH (08:25)
[2019-11-30] MEDS: Insulin LISPRO 300 UNITS/3 ML VIAL SQ SCH ×7 (08:26→20:36)
[2019-11-30] MEDS: Aspirin 81 MG TAB.CHEW PO SCH (08:28)
[2019-11-30] MEDS: Insulin DETEMIR 100 UNIT/ML X5UNITS SQ SCH (20:36)
[2019-11-30] MEDS: *HR* OxyCODONE Immed Rel 5 MG TABLET PO PRN (20:50)
[2019-12-01] MEDS: Ipratropium/Albuterol Neb 3 ML IH SCH ×7 (00:02→23:46)
[2019-12-01 04:34] LABS: Eosinophils % 0.2 %; Hemoglobin 8.3 g/dL (11.5-15.4); Red Cell Distribution Width 13.8 % (11.5-14.5)
[2019-12-01 04:37] LABS: Hematocrit 25.3 % (35.3-44.9); Immature Granulocytes % 3.5 % (0-4); Immature Platelets 8.1 % (1.1-6.1); Lymphocytes # 0.2 K/mcL (0.6-4.6); Lymphocytes % 5.3 %; Mean Corpuscular HGB Conc 32.8 g/dL (31.6-35.5); Mean Corpuscular Volume 106.8 fL (83.0-100.0); Mean Platelet Volume 12.2 fL (9.4-12.4); Monocytes # 0.3 K/mcL (0.0-1.3); Neutrophils # 3.8 K/mcL (1.6-8.9); Red Blood Count 2.37 M/mcL (3.82-4.97); White Blood Count 4.5 K/mcL (4.3-11.1)
[2019-12-01 04:39] LABS: Platelet Count 95 K/mcL (140-400)
[2019-12-01 04:54] LABS: Calcium 8.6 mg/dL (8.6-10.3); Potassium 3.7 mEq/L (3.5-5.1)
[2019-12-01 04:55] LABS: Magnesium 1.9 mg/dL (1.6-2.6); Uric Acid 8.1 mg/dL (2.3-7.6)
[2019-12-01] MEDS: Aspirin 81 MG TAB.CHEW PO SCH (08:06)
[2019-12-01] MEDS: hydrALAZINE 25 MG TABLET PO SCH ×3 (08:06→21:35)
[2019-12-01] MEDS: cloNIDine HCL 0.1 MG TABLET PO SCH ×3 (08:06→21:34)
[2019-12-01] MEDS: amLODIPine 5 MG TABLET PO SCH (08:06)
[2019-12-01] MEDS: Sennosides 8.6 MG TABLET PO SCH ×2 (08:07→21:35)
[2019-12-01] MEDS: predniSONE 20 MG TABLET PO SCH (08:07)
[2019-12-01] MEDS: allopurinoL 100 MG TABLET PO SCH (08:08)
[2019-12-01] MEDS: Isosorbide MONOnitrate (24 HR) 60 MG TAB.ER.24H PO SCH (08:08)
[2019-12-01] MEDS: carvediloL 25 MG TABLET PO SCH ×2 (08:08→17:24)
[2019-12-01] MEDS: Insulin LISPRO 300 UNITS/3 ML VIAL SQ SCH ×7 (08:09→21:36)
[2019-12-01] MEDS: Furosemide 40 MG/4 ML VIAL IVP SCH ×2 (08:09→17:22)
[2019-12-01 08:44] LABS: ANA IgG by ELISA NONE DETECTED (None Detected)
[2019-12-01] MEDS ORDERED: levoFLOXacin 750 MG TABLET PO ONE (09:00)
[2019-12-01] MEDS: polyethylene glycoL 3350 17 GM POWD.PACK PO SCH (11:43)
[2019-12-01] MEDS: *HR* OxyCODONE Immed Rel 5 MG TABLET PO PRN (19:48)
[2019-12-01] MEDS: Insulin DETEMIR 100 UNIT/ML X5UNITS SQ SCH (21:35)
[2019-12-02 02:13] LABS: Basophils % 0.2 %; Hemoglobin 8.1 g/dL (11.5-15.4); Segmented Neutrophils % 81.7 %
[2019-12-02 02:15] LABS: Eosinophils % 0.7 %; Immature Platelets 8.7 % (1.1-6.1); Lymphocytes # 0.4 K/mcL (0.6-4.6); Lymphocytes % 7.7 %; Mean Corpuscular HGB Conc 32.4 g/dL (31.6-35.5); Mean Corpuscular Hemoglobin 33.6 pg (28.0-33.3); Mean Corpuscular Volume 103.7 fL (83.0-100.0); Monocytes # 0.4 K/mcL (0.0-1.3); Monocytes % 7.7 %; Red Blood Count 2.41 M/mcL (3.82-4.97); Red Cell Distribution Width 13.8 % (11.5-14.5); White Blood Count 4.6 K/mcL (4.3-11.1)
[2019-12-02 02:17] LABS: Neutrophils # 3.8 K/mcL (1.6-8.9); Platelet Count 89 K/mcL (140-400)
[2019-12-02 02:18] LABS: Platelet Estimate Decreased (Normal)
[2019-12-02 02:31] LABS: Calcium 8.7 mg/dL (8.6-10.3); Potassium 3.6 mEq/L (3.5-5.1)
[2019-12-02] MEDS: Ipratropium/Albuterol Neb 3 ML IH SCH ×6 (03:41→23:46)
[2019-12-02] MEDS: cloNIDine HCL 0.1 MG TABLET PO SCH ×3 (08:13→22:50)
[2019-12-02] MEDS: polyethylene glycoL 3350 17 GM POWD.PACK PO SCH (08:13)
[2019-12-02] MEDS: carvediloL 25 MG TABLET PO SCH ×2 (08:15→17:40)
[2019-12-02] MEDS: allopurinoL 100 MG TABLET PO SCH (08:15)
[2019-12-02] MEDS: Isosorbide MONOnitrate (24 HR) 60 MG TAB.ER.24H PO SCH (08:15)
[2019-12-02] MEDS: Aspirin 81 MG TAB.CHEW PO SCH (08:16)
[2019-12-02] MEDS: predniSONE 20 MG TABLET PO SCH (08:16)
[2019-12-02] MEDS: amLODIPine 5 MG TABLET PO SCH (08:16)
[2019-12-02] MEDS: Sennosides 8.6 MG TABLET PO SCH ×2 (08:16→22:50)
[2019-12-02] MEDS: hydrALAZINE 25 MG TABLET PO SCH ×3 (08:17→22:50)
[2019-12-02] MEDS: Furosemide 40 MG/4 ML VIAL IVP SCH ×2 (08:17→22:50)
[2019-12-02] MEDS: Insulin LISPRO 300 UNITS/3 ML VIAL SQ SCH ×7 (08:19→22:52)
[2019-12-02 10:56] LABS: Serine Protease-3 Antibody 1 AU/mL (0-19)
[2019-12-02] MEDS: *HR* OxyCODONE Immed Rel 5 MG TABLET PO PRN (16:38)
[2019-12-02] MEDS: Insulin DETEMIR 100 UNIT/ML X5UNITS SQ SCH (22:51)
[2019-12-03] MEDS: Ipratropium/Albuterol Neb 3 ML IH SCH ×6 (03:43→23:45)
[2019-12-03 05:06] LABS: Hemoglobin 8.3 g/dL (11.5-15.4); Monocytes % 6.8 %
[2019-12-03 05:08] LABS: Basophils % 0.2 %; Eosinophils % 0.8 %; Hematocrit 25.3 % (35.3-44.9); Immature Granulocytes % 2.5 % (0-4); Immature Platelets 9.8 % (1.1-6.1); Lymphocytes # 0.5 K/mcL (0.6-4.6); Lymphocytes % 10.7 %; Mean Corpuscular HGB Conc 32.8 g/dL (31.6-35.5); Mean Corpuscular Volume 103.7 fL (83.0-100.0); Mean Platelet Volume 12.6 fL (9.4-12.4); Monocytes # 0.3 K/mcL (0.0-1.3); Red Blood Count 2.44 M/mcL (3.82-4.97); Red Cell Distribution Width 13.7 % (11.5-14.5); White Blood Count 4.9 K/mcL (4.3-11.1)
[2019-12-03 05:15] LABS: Neutrophils # 3.9 K/mcL (1.6-8.9); Platelet Count 91 K/mcL (140-400)
[2019-12-03 05:26] LABS: Calcium 8.9 mg/dL (8.6-10.3); Potassium 3.6 mEq/L (3.5-5.1)
[2019-12-03] MEDS: Insulin LISPRO 300 UNITS/3 ML VIAL SQ SCH ×7 (09:08→22:26)
[2019-12-03] MEDS: Furosemide 40 MG TABLET PO SCH ×2 (09:12→16:33)
[2019-12-03] MEDS: carvediloL 25 MG TABLET PO SCH ×2 (09:12→16:33)
[2019-12-03] MEDS: Aspirin 81 MG TAB.CHEW PO SCH (09:13)
[2019-12-03] MEDS: cloNIDine HCL 0.1 MG TABLET PO SCH ×3 (09:13→22:22)
[2019-12-03] MEDS: hydrALAZINE 25 MG TABLET PO SCH ×3 (09:13→22:23)
[2019-12-03] MEDS: Isosorbide MONOnitrate (24 HR) 60 MG TAB.ER.24H PO SCH (09:13)
[2019-12-03] MEDS: allopurinoL 100 MG TABLET PO SCH (09:14)
[2019-12-03] MEDS: predniSONE 20 MG TABLET PO SCH (09:14)
[2019-12-03] MEDS: Sennosides 8.6 MG TABLET PO SCH ×2 (09:14→22:23)
[2019-12-03] MEDS: amLODIPine 5 MG TABLET PO SCH (09:14)
[2019-12-03] MEDS: polyethylene glycoL 3350 17 GM POWD.PACK PO SCH (09:19)
[2019-12-03] MEDS ORDERED: Bisacodyl 10 MG RECTAL SUPPOSITORY RC PRN (10:23)
[2019-12-03 15:45] LABS: Influenza A PCR Body Fluid NOT DETECTED; Influenza B PCR Body Fluid NOT DETECTED; RVP Body Fluid Source BAL
[2019-12-03 15:46] LABS: Influenza A PCR Body Fluid NOT DETECTED; Influenza B PCR Body Fluid NOT DETECTED; RVP Body Fluid Source BAL
[2019-12-03] MEDS ORDERED: Insulin DETEMIR 100 UNIT/ML X5UNITS SQ SCH (21:00)
[2019-12-04 02:54] LABS: Calcium 9.1 mg/dL (8.6-10.3); Potassium 3.7 mEq/L (3.5-5.1)
[2019-12-04] MEDS: Ipratropium/Albuterol Neb 3 ML IH SCH ×3 (03:55→11:11)
[2019-12-04 07:33] VITALS: BP 166/63
[2019-12-04] MEDS: Isosorbide MONOnitrate (24 HR) 60 MG TAB.ER.24H PO SCH (09:19)
[2019-12-04] MEDS: cloNIDine HCL 0.1 MG TABLET PO SCH (09:19)
[2019-12-04] MEDS: allopurinoL 100 MG TABLET PO SCH (09:20)
[2019-12-04] MEDS: carvediloL 25 MG TABLET PO SCH (09:20)
[2019-12-04] MEDS: hydrALAZINE 25 MG TABLET PO SCH (09:20)
[2019-12-04] MEDS: Sennosides 8.6 MG TABLET PO SCH (09:20)
[2019-12-04] MEDS: Furosemide 40 MG TABLET PO SCH (09:20)
[2019-12-04] MEDS: predniSONE 20 MG TABLET PO SCH (09:20)
[2019-12-04] MEDS: polyethylene glycoL 3350 17 GM POWD.PACK PO SCH (09:20)
[2019-12-04] MEDS: amLODIPine 5 MG TABLET PO SCH (09:20)
[2019-12-04] MEDS: Insulin LISPRO 300 UNITS/3 ML VIAL SQ SCH ×4 (09:26→12:14)
[2019-12-04] MEDS: *HR* OxyCODONE Immed Rel 5 MG TABLET PO PRN (09:34)
[2019-12-04] MEDS: Aspirin 81 MG TAB.CHEW PO SCH (09:34)
[2019-12-04 15:16] LABS: RSV PCR Body Fluid NOT DETECTED
== END 2019-12-04 16:17 | DRG 190 ==
LOC: 2ANU → SUATTDRO 16:40 → 2NNU 11-27 20:18 → 2NENU 12-01 19:03
PROVIDERS: ADMIT Internal Medicine; ATTEND Internal Medicine

== ENCOUNTER 2020-03-09 08:47 | Inpatient (IN) ==
[2020-03-09] MEDS ORDERED: Naloxone 0.4 MG/ML INJ IVP PRN (11:02)
[2020-03-09] MEDS: Budesonide/Formoterol 160/4.5 1 PUFF INH IH SCH ×2 (11:24→21:27)
[2020-03-09] MEDS ORDERED: Albumin 25% 25gram/100mL 25 GM/100 ML IV.SOLN IVPB ONE (11:40)
[2020-03-09] MEDS ORDERED: Furosemide 40 MG/4 ML VIAL IVP ONE (12:30)
[2020-03-09] MEDS: Insulin LISPRO 300 UNITS/3 ML VIAL SQ SCH ×3 (12:33→23:02)
[2020-03-09] MEDS: Ipratropium/Albuterol Neb 3 ML IH SCH (16:04)
[2020-03-09] MEDS: IPRATROPIUM/ALBUTEROL SULFATE 120 PUFF INHALER IH SCH ×2 (16:25→21:26)
[2020-03-09] MEDS: *HR* Heparin 5,000 UNIT/ML VIAL SQ SCH ×2 (17:17→22:00)
[2020-03-09] MEDS: hydrALAZINE 25 MG TABLET PO SCH (17:17)
[2020-03-09] MEDS: Albumin 25% 25gram/100mL 25 GM/100 ML IV.SOLN IVPB SCH (22:01)
[2020-03-09] MEDS: Acetaminophen 325 MG TABLET PO ONE (22:01)
[2020-03-09] MEDS: Furosemide 40 MG/4 ML VIAL IVP SCH (22:01)
[2020-03-09] MEDS ORDERED: *HR* LORazepam 2 MG/ML VIAL IVP ONE (22:17)
[2020-03-09] MEDS ORDERED: Acetaminophen IV 1,000 MG/100 ML INFUS..BTL IVPB ONE (22:39)
[2020-03-09 22:44] LABS: ABG Base Excess 7 mEq/L (-2 to 3); ABG HCO3 34 mEq/L (21-27); ABG Oxygen Saturation 91 % (95-98); ABG PCO2 64 mmHg (35-45); ABG PH 7.34 pH Units (7.32-7.45); ABG PO2 67 mmHg (85-104); ABG TCO2 36 mEq/L (20-26); Blood Gas Modality BiLevel
[2020-03-10 00:12] LABS: Hematocrit 27.1 % (35.3-44.9); Hemoglobin 8.5 g/dL (11.5-15.4); Mean Corpuscular HGB Conc 31.4 g/dL (31.6-35.5); Red Cell Distribution Width 19.1 % (11.5-14.5)
[2020-03-10 00:14] LABS: Immature Platelets 14.8 % (1.1-6.1); Mean Corpuscular Hemoglobin 36.8 pg (28.0-33.3); Mean Corpuscular Volume 117.3 fL (83.0-100.0); Mean Platelet Volume 13.1 fL (9.4-12.4); Platelet Count 113 K/mcL (140-400); Red Blood Count 2.31 M/mcL (3.82-4.97); White Blood Count 11.6 K/mcL (4.3-11.1)
[2020-03-10 00:29] LABS: Calcium 9.4 mg/dL (8.6-10.3); Magnesium 1.9 mg/dL (1.6-2.6); Phosphorous 4.8 mg/dL (2.7-4.5)
[2020-03-10 00:48] LABS: Lymphocytes # 0.5 K/mcL (0.6-4.6); Monocytes # 1.2 K/mcL (0.0-1.3)
[2020-03-10 00:49] LABS: Anisocytosis 2+ (Not Present); Large Platelets Present (Not Present); Macrocytosis Present (Not Present); Platelet Estimate Slight Decrease (Normal)
[2020-03-10] MEDS: hydrALAZINE 25 MG TABLET PO SCH ×2 (01:06→10:15)
[2020-03-10] MEDS: Acetaminophen 325 MG TABLET PO ONE (01:06)
[2020-03-10 01:30] LABS: INR 1.4; Prothrombin Time 15.4 Seconds (9.4-12.1)
[2020-03-10] MEDS: IPRATROPIUM/ALBUTEROL SULFATE 120 PUFF INHALER IH SCH ×3 (03:53→16:20)
[2020-03-10 06:11] LABS: Mean Corpuscular HGB Conc 30.9 g/dL (31.6-35.5)
[2020-03-10 06:13] LABS: Hemoglobin 7.1 g/dL (11.5-15.4); Immature Platelets 13.5 % (1.1-6.1); Mean Corpuscular Volume 116.8 fL (83.0-100.0); Mean Platelet Volume 13.2 fL (9.4-12.4); Red Blood Count 1.97 M/mcL (3.82-4.97); White Blood Count 4.5 K/mcL (4.3-11.1)
[2020-03-10 06:30] LABS: Potassium 3.5 mEq/L (3.5-5.1)
[2020-03-10] MEDS: *HR* Heparin 5,000 UNIT/ML VIAL SQ SCH ×2 (06:33→13:15)
[2020-03-10] MEDS ORDERED: amLODIPine 5 MG TABLET PO SCH (09:00)
[2020-03-10] MEDS: Insulin LISPRO 300 UNITS/3 ML VIAL SQ SCH ×4 (10:14→21:30)
[2020-03-10] MEDS: allopurinoL 100 MG TABLET PO SCH (10:15)
[2020-03-10] MEDS: Aspirin Enteric Coated 81 MG Tablet PO SCH (10:15)
[2020-03-10] MEDS: Furosemide 40 MG/4 ML VIAL IVP SCH ×2 (10:15→21:32)
[2020-03-10] MEDS: Albumin 25% 25gram/100mL 25 GM/100 ML IV.SOLN IVPB SCH ×2 (10:15→21:31)
[2020-03-10] MEDS: Budesonide/Formoterol 160/4.5 1 PUFF INH IH SCH ×2 (11:36→22:16)
[2020-03-10] MEDS ORDERED: *HR* LORazepam 2 MG/ML VIAL ONE (13:51)
[2020-03-10] MEDS ORDERED: *HR* LORazepam 2 MG/ML VIAL IVP ONE ×3 (13:52→22:01)
[2020-03-10] MEDS ORDERED: Morphine Sulfate 2 MG/ML SYRINGE IVP ONE (13:53)
[2020-03-10] MEDS ORDERED: Ipratropium/Albuterol Neb 3 ML ONE (14:09)
[2020-03-10 15:04] LABS: Hematocrit 24.9 % (35.3-44.9); Hemoglobin 7.7 g/dL (11.5-15.4)
[2020-03-10] MEDS: Ipratropium/Albuterol Neb 3 ML IH SCH ×2 (15:41→22:16)
[2020-03-10] MEDS: MethylPREDNISolone 40 MG/ML VIAL IVP SCH ×2 (15:47→23:23)
[2020-03-10] MEDS ORDERED: Vancomycin 1 EACH in 0.9 % Sodium Chloride 250 ML IVPB PRN (16:00)
[2020-03-10] MEDS ORDERED: Cefepime HCl 1,000 MG in Water for inj. (sterile) 10 ML IVP SCH (16:00)
[2020-03-10] MEDS ORDERED: Ipratropium/Albuterol Neb 3 ML IH ONE (16:18)
[2020-03-10] MEDS ORDERED: Vancomycin 1,500 MG/265 ML IV.SOLN IVPB ONE (16:25)
[2020-03-10] MEDS: carvediloL 25 MG TABLET PO SCH (16:27)
[2020-03-11] MEDS ORDERED: *HR* LORazepam 2 MG/ML VIAL IVP ONE (00:06)
[2020-03-11 03:45] LABS: Basophils % 0.2 %; Red Cell Distribution Width 18.5 % (11.5-14.5); White Blood Count 5.2 K/mcL (4.3-11.1)
[2020-03-11 03:47] LABS: Hematocrit 22.6 % (35.3-44.9); Hemoglobin 7.2 g/dL (11.5-15.4); Immature Granulocytes % 1.7 % (0-4); Immature Platelets 12.4 % (1.1-6.1); Lymphocytes # 0.3 K/mcL (0.6-4.6); Lymphocytes % 6.3 %; Mean Corpuscular HGB Conc 31.9 g/dL (31.6-35.5); Mean Corpuscular Hemoglobin 37.5 pg (28.0-33.3); Mean Corpuscular Volume 117.7 fL (83.0-100.0); Mean Platelet Volume 13.2 fL (9.4-12.4); Monocytes # 0.3 K/mcL (0.0-1.3); Monocytes % 5.3 %; Neutrophils # 4.5 K/mcL (1.6-8.9); Red Blood Count 1.92 M/mcL (3.82-4.97); Segmented Neutrophils % 86.5 %
[2020-03-11 03:58] LABS: Calcium 9.9 mg/dL (8.6-10.3)
[2020-03-11] MEDS: Ipratropium/Albuterol Neb 3 ML IH SCH ×8 (03:59→21:22)
[2020-03-11 04:05] LABS: Platelet Count 87 K/mcL (140-400)
[2020-03-11 05:16] LABS: Anisocytosis 2+ (Not Present); Macrocytosis Present (Not Present); Platelet Estimate Decreased (Normal)
[2020-03-11 05:17] LABS: Polychromasia 1+ (Not Present)
[2020-03-11] MEDS: MethylPREDNISolone 40 MG/ML VIAL IVP SCH ×3 (08:10→23:13)
[2020-03-11] MEDS: Aspirin Enteric Coated 81 MG Tablet PO SCH (08:11)
[2020-03-11] MEDS: Insulin LISPRO 300 UNITS/3 ML VIAL SQ SCH ×4 (08:11→22:12)
[2020-03-11] MEDS: allopurinoL 100 MG TABLET PO SCH (08:11)
[2020-03-11] MEDS: carvediloL 25 MG TABLET PO SCH ×2 (08:13→17:33)
[2020-03-11] MEDS: levoFLOXacin 500 MG/100 ML 500 MG/100 ML BAG IVPB SCH (08:14)
[2020-03-11] MEDS ORDERED: *HR* LORazepam 2 MG/ML VIAL IVP STA (08:31)
[2020-03-11] MEDS ORDERED: *HR* LORazepam 2 MG/ML VIAL ONE (08:33)
[2020-03-11] MEDS: Budesonide/Formoterol 160/4.5 1 PUFF INH IH SCH ×2 (08:39→21:22)
[2020-03-11] MEDS ORDERED: Ipratropium/Albuterol Neb 3 ML IH ONE (09:07)
[2020-03-11 09:53] LABS: ABG Base Excess 5 mEq/L (-2 to 3); ABG HCO3 30 mEq/L (21-27); ABG Oxygen Saturation 84 % (95-98); ABG PCO2 47 mmHg (35-45); ABG PH 7.41 pH Units (7.32-7.45); ABG PO2 49 mmHg (85-104); ABG TCO2 31 mEq/L (20-26); Blood Gas Pressure Support 6 cm H2O
[2020-03-11] MEDS ORDERED: 0.9 % Sodium Chloride 250 ML IVC PRN (10:04)
[2020-03-11] MEDS ORDERED: 0.9 % Sodium Chloride 1,000 ML PRIME SCH (10:15)
[2020-03-11] MEDS ORDERED: *HR* Heparin 10,000 UNIT/10 ML VIAL IV PRN (10:39)
[2020-03-11] MEDS: Dexmedetomidine HCl 400 MCG/100 ML MLS IVC SCH ×2 (10:40→17:31)
[2020-03-11] MEDS ORDERED: Vancomycin 1,500 MG/265 ML IV.SOLN IVPB SCH (13:00)
[2020-03-11] MEDS ORDERED: Vancomycin (wt based) 1,000 MG VIAL IVPB SCH (13:00)
[2020-03-11] MEDS ORDERED: *HR* Heparin 5,000 UNIT/ML VIAL ONE (14:34)
[2020-03-11] MEDS: MetroNIDAZOLE 500 MG/100 ML 500 MG/100 ML BAG IVPB SCH ×2 (15:29→22:12)
[2020-03-11] MEDS ORDERED: Cefepime HCl 1,000 MG in Water for inj. (sterile) 10 ML IVP SCH (16:30)
[2020-03-11 17:34] LABS: Hepatitis B Surface Antibody < 3.10 mIU/mL
[2020-03-11 17:45] LABS: Hepatitis B Surface Antigen Nonreactive (Nonreactive)
[2020-03-11 18:15] LABS: Hepatitis B Core IgM Nonreactive (Nonreactive)
[2020-03-11] MEDS ORDERED: 0.9 % Sodium Chloride 250 ML ONE (20:12)
[2020-03-12] MEDS: Dexmedetomidine HCl 400 MCG/100 ML MLS IVC SCH ×3 (01:45→20:30)
[2020-03-12 02:15] LABS: Red Cell Distribution Width 20.4 % (11.5-14.5)
[2020-03-12 02:17] LABS: Hematocrit 24.3 % (35.3-44.9); Hemoglobin 7.7 g/dL (11.5-15.4); Immature Platelets 13.6 % (1.1-6.1); Mean Corpuscular HGB Conc 31.7 g/dL (31.6-35.5); Mean Corpuscular Hemoglobin 35.2 pg (28.0-33.3); Mean Platelet Volume 12.9 fL (9.4-12.4); Red Blood Count 2.19 M/mcL (3.82-4.97); White Blood Count 4.5 K/mcL (4.3-11.1)
[2020-03-12 02:35] LABS: Calcium 9.3 mg/dL (8.6-10.3); Potassium 3.9 mEq/L (3.5-5.1)
[2020-03-12] MEDS: Ipratropium/Albuterol Neb 3 ML IH SCH ×4 (03:34→21:54)
[2020-03-12] MEDS: MetroNIDAZOLE 500 MG/100 ML 500 MG/100 ML BAG IVPB SCH ×3 (03:48→21:51)
[2020-03-12] MEDS ORDERED: 0.9 % Sodium Chloride 250 ML IVC PRN (06:03)
[2020-03-12 07:38] LABS: ABG Base Excess -1 mEq/L (-2 to 3); ABG HCO3 23 mEq/L (21-27); ABG Oxygen Saturation 95 % (95-98); ABG PCO2 32 mmHg (35-45); ABG PH 7.47 pH Units (7.32-7.45); ABG PO2 70 mmHg (85-104); ABG TCO2 24 mEq/L (20-26)
[2020-03-12] MEDS: Aspirin Enteric Coated 81 MG Tablet PO SCH (08:45)
[2020-03-12] MEDS: carvediloL 25 MG TABLET PO SCH ×2 (08:45→16:17)
[2020-03-12] MEDS: allopurinoL 100 MG TABLET PO SCH (08:45)
[2020-03-12] MEDS: MethylPREDNISolone 40 MG/ML VIAL IVP SCH ×3 (08:45→23:01)
[2020-03-12] MEDS: Insulin LISPRO 300 UNITS/3 ML VIAL SQ SCH ×4 (08:49→21:41)
[2020-03-12 09:28] LABS: ABG PCO2 47 mmHg (35-45); ABG PH 7.44 pH Units (7.32-7.45)
[2020-03-12 09:29] LABS: ABG Base Excess 7 mEq/L (-2 to 3); ABG HCO3 32 mEq/L (21-27); ABG Oxygen Saturation 88 % (95-98); ABG PO2 54 mmHg (85-104); ABG TCO2 33 mEq/L (20-26)
[2020-03-12] MEDS: Budesonide/Formoterol 160/4.5 1 PUFF INH IH SCH ×2 (10:02→21:55)
[2020-03-12] MEDS ORDERED: *HR* Heparin 10,000 UNIT/10 ML VIAL IV PRN (12:17)
[2020-03-12] MEDS ORDERED: Cefepime HCl 2,000 MG in Water for inj. (sterile) 20 ML IVP SCH (21:00)
[2020-03-12] MEDS ORDERED: Acetaminophen 325 MG TABLET PO PRN (21:53)
[2020-03-12] MEDS ORDERED: *HR* HYDROcodone/Acet 5/325 mg TABLET PO PRN (21:53)
[2020-03-13] MEDS: MetroNIDAZOLE 500 MG/100 ML 500 MG/100 ML BAG IVPB SCH ×3 (04:10→20:16)
[2020-03-13 04:12] LABS: Hemoglobin 8.2 g/dL (11.5-15.4); Red Cell Distribution Width 19.7 % (11.5-14.5)
[2020-03-13 04:13] LABS: Hematocrit 26.5 % (35.3-44.9); Immature Platelets 14.5 % (1.1-6.1); Mean Corpuscular HGB Conc 30.9 g/dL (31.6-35.5); Mean Corpuscular Hemoglobin 34.6 pg (28.0-33.3); Mean Corpuscular Volume 111.8 fL (83.0-100.0); Mean Platelet Volume 12.8 fL (9.4-12.4); Red Blood Count 2.37 M/mcL (3.82-4.97); White Blood Count 4.5 K/mcL (4.3-11.1)
[2020-03-13] MEDS: Ipratropium/Albuterol Neb 3 ML IH SCH ×4 (04:22→21:33)
[2020-03-13 04:32] LABS: Calcium 9.1 mg/dL (8.6-10.3)
[2020-03-13] MEDS ORDERED: *HR* Heparin 10,000 UNIT/10 ML VIAL IV PRN ×3 (08:11→13:31)
[2020-03-13] MEDS ORDERED: 0.9 % Sodium Chloride 250 ML IVC PRN ×2 (08:11→13:31)
[2020-03-13] MEDS: levoFLOXacin 500 MG/100 ML 500 MG/100 ML BAG IVPB SCH (08:33)
[2020-03-13] MEDS: carvediloL 25 MG TABLET PO SCH ×2 (08:33→16:29)
[2020-03-13] MEDS: allopurinoL 100 MG TABLET PO SCH (08:33)
[2020-03-13] MEDS: MethylPREDNISolone 40 MG/ML VIAL IVP SCH ×3 (08:33→23:29)
[2020-03-13] MEDS: Aspirin Enteric Coated 81 MG Tablet PO SCH (08:33)
[2020-03-13] MEDS: Insulin LISPRO 300 UNITS/3 ML VIAL SQ SCH ×4 (08:34→20:04)
[2020-03-13] MEDS: Budesonide/Formoterol 160/4.5 1 PUFF INH IH SCH ×2 (11:00→21:33)
[2020-03-13] MEDS ORDERED: Naloxone 0.4 MG/ML INJ IVP PRN (13:31)
[2020-03-13] MEDS ORDERED: Acetaminophen 325 MG TABLET PO PRN (13:31)
[2020-03-13] MEDS ORDERED: *HR* HYDROcodone/Acet 5/325 mg TABLET PO PRN (13:31)
[2020-03-13] MEDS ORDERED: 0.9 % Sodium Chloride 1,000 ML PRIME SCH (13:31)
[2020-03-13] MEDS ORDERED: Ondansetron 4 MG/2 ML VIAL IVP ONE ×2 (13:36→13:51)
[2020-03-13] MEDS ORDERED: *HR* Heparin 5,000 UNIT/ML VIAL SQ SCH (14:00)
[2020-03-13] MEDS: *HR* Heparin 5,000 UNIT/ML VIAL SQ SCH ×2 (14:14→20:16)
[2020-03-13] MEDS: Dexmedetomidine HCl 400 MCG/100 ML MLS IVC SCH (14:45)
[2020-03-13] MEDS ORDERED: Aminoglycoside Consult 1 EACH MC ONE (16:11)
[2020-03-13] MEDS ORDERED: Cefepime HCl 2,000 MG in Water for inj. (sterile) 20 ML IVP SCH (21:00)
[2020-03-14] MEDS: Simethicone 80 MG TAB.CHEW PO PRN (01:20)
[2020-03-14 03:18] LABS: Calcium 9.3 mg/dL (8.6-10.3); Potassium 4.2 mEq/L (3.5-5.1)
[2020-03-14 03:19] LABS: Mean Corpuscular HGB Conc 31.6 g/dL (31.6-35.5); Mean Corpuscular Hemoglobin 34.9 pg (28.0-33.3); Mean Corpuscular Volume 110.3 fL (83.0-100.0); Mean Platelet Volume 12.8 fL (9.4-12.4); Platelet Count 129 K/mcL (140-400); Red Blood Count 2.81 M/mcL (3.82-4.97); Red Cell Distribution Width 18.6 % (11.5-14.5); White Blood Count 5.3 K/mcL (4.3-11.1)
[2020-03-14] MEDS: MetroNIDAZOLE 500 MG/100 ML 500 MG/100 ML BAG IVPB SCH ×3 (03:23→20:39)
[2020-03-14 03:39] LABS: Bilirubin,Urine Small (Negative); Blood,Urine Negative (Negative); Clarity,Urine Cloudy (Clear); Color,Urine Yellow (Yellow); Glucose,Urine (UA) Normal (Normal); Ketones,Urine Trace mg/dL (Negative); Leukocyte Esterase,Urine Negative (Negative); Nitrite,Urine Negative (Negative); Protein,Urine Trace mg/dL (Neg-Trace); Specific Gravity,Urine >= 1.030 (1.010-1.025); Urobilinogen,Urine Normal (Normal)
[2020-03-14 03:40] LABS: Hemoglobin 9.8 g/dL (11.5-15.4)
[2020-03-14 03:50] LABS: Bacteria,Urine Many per hpf (None-Few); Squamous Epithelial Cell,Urine Many per hpf (None-Few)
[2020-03-14] MEDS: Ipratropium/Albuterol Neb 3 ML IH SCH ×4 (03:54→22:01)
[2020-03-14 04:27] LABS: Anisocytosis 1+ (Not Present); Lymphocytes # 0.4 K/mcL (0.6-4.6); Neutrophils # 4.8 K/mcL (1.6-8.9)
[2020-03-14 04:28] LABS: Macrocytosis Present (Not Present); Platelet Estimate Slight Decrease (Normal)
[2020-03-14] MEDS: *HR* Heparin 5,000 UNIT/ML VIAL SQ SCH ×2 (05:24→13:58)
[2020-03-14] MEDS ORDERED: Ondansetron 4 MG/2 ML VIAL IVP PRN (08:15)
[2020-03-14] MEDS: carvediloL 25 MG TABLET PO SCH ×2 (08:18→16:15)
[2020-03-14] MEDS: allopurinoL 100 MG TABLET PO SCH (08:18)
[2020-03-14] MEDS: Aspirin Enteric Coated 81 MG Tablet PO SCH (08:18)
[2020-03-14] MEDS: MethylPREDNISolone 40 MG/ML VIAL IVP SCH ×2 (08:18→16:15)
[2020-03-14] MEDS: Insulin LISPRO 300 UNITS/3 ML VIAL SQ SCH ×4 (08:19→20:38)
[2020-03-14] MEDS: Budesonide/Formoterol 160/4.5 1 PUFF INH IH SCH ×2 (10:29→22:02)
[2020-03-14] MEDS: Dexmedetomidine HCl 400 MCG/100 ML MLS IVC SCH (10:39)
[2020-03-15] MEDS: MethylPREDNISolone 40 MG/ML VIAL IVP SCH ×2 (03:12→07:17)
[2020-03-15] MEDS: *HR* Heparin 5,000 UNIT/ML VIAL SQ SCH ×4 (03:13→20:56)
[2020-03-15] MEDS: MetroNIDAZOLE 500 MG/100 ML 500 MG/100 ML BAG IVPB SCH ×2 (04:10→11:27)
[2020-03-15] MEDS: Ipratropium/Albuterol Neb 3 ML IH SCH ×4 (04:31→22:43)
[2020-03-15 06:58] LABS: Basophils % 0.1 %; Eosinophils % 0.5 %; Hematocrit 30.5 % (35.3-44.9); Immature Granulocytes % 1.9 % (0-4); Lymphocytes # 0.3 K/mcL (0.6-4.6); Lymphocytes % 3.7 %; Mean Corpuscular HGB Conc 32.8 g/dL (31.6-35.5); Mean Corpuscular Volume 109.7 fL (83.0-100.0); Mean Platelet Volume 12.6 fL (9.4-12.4); Monocytes # 0.3 K/mcL (0.0-1.3); Monocytes % 3.5 %; Neutrophils # 6.8 K/mcL (1.6-8.9); Platelet Count 119 K/mcL (140-400); Red Blood Count 2.78 M/mcL (3.82-4.97); Red Cell Distribution Width 17.5 % (11.5-14.5); Segmented Neutrophils % 90.3 %; White Blood Count 7.5 K/mcL (4.3-11.1)
[2020-03-15] MEDS: Aspirin Enteric Coated 81 MG Tablet PO SCH (07:17)
[2020-03-15] MEDS: carvediloL 25 MG TABLET PO SCH ×2 (07:17→16:39)
[2020-03-15] MEDS: allopurinoL 100 MG TABLET PO SCH (07:17)
[2020-03-15 07:18] LABS: Calcium 9.3 mg/dL (8.6-10.3); Potassium 4.3 mEq/L (3.5-5.1)
[2020-03-15] MEDS: Insulin LISPRO 300 UNITS/3 ML VIAL SQ SCH ×4 (07:18→20:55)
[2020-03-15] MEDS: Dexmedetomidine HCl 400 MCG/100 ML MLS IVC SCH (07:30)
[2020-03-15 07:42] LABS: Folate 7.9 ng/mL (3.0-16.0)
[2020-03-15] MEDS ORDERED: levoFLOXacin 500 MG/100 ML 500 MG/100 ML BAG IVPB SCH (09:00)
[2020-03-15] MEDS: Budesonide/Formoterol 160/4.5 1 PUFF INH IH SCH ×2 (09:12→22:43)
[2020-03-15] MEDS ORDERED: polyethylene glycoL 3350 17 GM POWD.PACK PO PRN (10:23)
[2020-03-15] MEDS ORDERED: Dextrose Gel 15 GM/37.5 ML TUBE PO PRN ×2 (10:29)
[2020-03-15] MEDS ORDERED: *HR* Dextrose 50 % in Water (Vial) 50 ML VIAL IVP PRN (10:29)
[2020-03-15] MEDS ORDERED: D5% in Water 1,000 ML IVC PRN (10:29)
[2020-03-15] MEDS: Sennosides 8.6 MG TABLET PO SCH (11:27)
[2020-03-15] MEDS: Insulin DETEMIR 100 UNIT/ML X5UNITS SQ SCH ×2 (11:43→20:55)
[2020-03-15] MEDS: Simethicone 80 MG TAB.CHEW PO PRN (17:53)
[2020-03-15] MEDS ORDERED: Insulin DETEMIR 100 UNIT/ML X5UNITS SQ SCH (21:00)
[2020-03-15] MEDS ORDERED: Cefepime HCl 2,000 MG in Water for inj. (sterile) 20 ML IVP SCH (21:00)
[2020-03-16] MEDS: Ipratropium/Albuterol Neb 3 ML IH SCH ×5 (04:04→21:58)
[2020-03-16 04:38] LABS: Basophils % 0.2 %; Eosinophils # 0.2 K/mcL (0.0-0.6); Eosinophils % 1.9 %; Hematocrit 29.6 % (35.3-44.9); Hemoglobin 9.6 g/dL (11.5-15.4); Immature Granulocytes % 1.2 % (0-4); Lymphocytes # 0.5 K/mcL (0.6-4.6); Lymphocytes % 5.6 %; Mean Corpuscular HGB Conc 32.4 g/dL (31.6-35.5); Mean Corpuscular Hemoglobin 35.4 pg (28.0-33.3); Mean Corpuscular Volume 109.2 fL (83.0-100.0); Mean Platelet Volume 12.5 fL (9.4-12.4); Monocytes # 0.6 K/mcL (0.0-1.3); Monocytes % 7.2 %; Neutrophils # 7.5 K/mcL (1.6-8.9); Platelet Count 112 K/mcL (140-400); Red Blood Count 2.71 M/mcL (3.82-4.97); Red Cell Distribution Width 17.1 % (11.5-14.5); Segmented Neutrophils % 83.9 %; White Blood Count 8.9 K/mcL (4.3-11.1)
[2020-03-16 04:58] LABS: Calcium 8.8 mg/dL (8.6-10.3); Potassium 4.3 mEq/L (3.5-5.1)
[2020-03-16] MEDS: Dexmedetomidine HCl 400 MCG/100 ML MLS IVC SCH (05:18)
[2020-03-16] MEDS: *HR* Heparin 5,000 UNIT/ML VIAL SQ SCH ×3 (05:35→20:20)
[2020-03-16] MEDS: Insulin LISPRO 300 UNITS/3 ML VIAL SQ SCH ×4 (07:41→20:21)
[2020-03-16] MEDS: Sennosides 8.6 MG TABLET PO SCH (07:42)
[2020-03-16] MEDS: allopurinoL 100 MG TABLET PO SCH (07:42)
[2020-03-16] MEDS: Aspirin Enteric Coated 81 MG Tablet PO SCH (07:42)
[2020-03-16] MEDS: carvediloL 25 MG TABLET PO SCH ×2 (07:42→16:43)
[2020-03-16] MEDS ORDERED: predniSONE 20 MG TABLET PO SCH ×2 (08:00→09:00)
[2020-03-16] MEDS ORDERED: Isosorbide MONOnitrate (24 HR) 60 MG TAB.ER.24H PO SCH (09:00)
[2020-03-16] MEDS: Budesonide/Formoterol 160/4.5 1 PUFF INH IH SCH ×2 (10:42→21:58)
[2020-03-16] MEDS ORDERED: D5% in Water 1,000 ML IVC PRN (16:00)
[2020-03-16] MEDS ORDERED: Acetaminophen 325 MG TABLET PO PRN (16:00)
[2020-03-16] MEDS ORDERED: *HR* HYDROcodone/Acet 5/325 mg TABLET PO PRN (16:00)
[2020-03-16] MEDS ORDERED: *HR* Heparin 10,000 UNIT/10 ML VIAL IV PRN (16:00)
[2020-03-16] MEDS ORDERED: 0.9 % Sodium Chloride 1,000 ML PRIME SCH (16:00)
[2020-03-16] MEDS ORDERED: Dextrose Gel 15 GM/37.5 ML TUBE PO PRN ×2 (16:00)
[2020-03-16] MEDS ORDERED: 0.9 % Sodium Chloride 250 ML IVC PRN (16:00)
[2020-03-16] MEDS ORDERED: *HR* Dextrose 50 % in Water (Vial) 50 ML VIAL IVP PRN (16:00)
[2020-03-16] MEDS ORDERED: Simethicone 80 MG TAB.CHEW PO PRN (16:00)
[2020-03-16] MEDS ORDERED: Naloxone 0.4 MG/ML INJ IVP PRN (16:00)
[2020-03-16] MEDS ORDERED: Dexmedetomidine HCl 400 MCG/100 ML MLS IVC SCH (16:00)
[2020-03-16] MEDS ORDERED: Ondansetron 4 MG/2 ML VIAL IVP PRN (16:00)
[2020-03-16] MEDS: predniSONE 20 MG TABLET PO SCH (16:43)
[2020-03-16] MEDS: polyethylene glycoL 3350 17 GM POWD.PACK PO PRN (20:22)
[2020-03-16] MEDS ORDERED: Insulin DETEMIR 100 UNIT/ML X5UNITS SQ SCH (21:00)
[2020-03-17] MEDS: Ipratropium/Albuterol Neb 3 ML IH SCH ×4 (03:38→21:28)
[2020-03-17] MEDS: *HR* Heparin 5,000 UNIT/ML VIAL SQ SCH ×3 (04:58→20:57)
[2020-03-17 05:42] LABS: Potassium 4.8 mEq/L (3.5-5.1)
[2020-03-17] MEDS: Isosorbide MONOnitrate (24 HR) 60 MG TAB.ER.24H PO SCH (08:22)
[2020-03-17] MEDS: allopurinoL 100 MG TABLET PO SCH (08:22)
[2020-03-17] MEDS: predniSONE 20 MG TABLET PO SCH (08:22)
[2020-03-17] MEDS: Aspirin Enteric Coated 81 MG Tablet PO SCH (08:22)
[2020-03-17] MEDS: Sennosides 8.6 MG TABLET PO SCH (08:23)
[2020-03-17] MEDS: carvediloL 25 MG TABLET PO SCH ×2 (08:23→16:17)
[2020-03-17] MEDS: polyethylene glycoL 3350 17 GM POWD.PACK PO PRN (08:24)
[2020-03-17] MEDS: Insulin LISPRO 300 UNITS/3 ML VIAL SQ SCH ×5 (08:30→20:58)
[2020-03-17] MEDS ORDERED: levoFLOXacin 500 MG/100 ML 500 MG/100 ML BAG IVPB SCH (09:00)
[2020-03-17] MEDS ORDERED: levoFLOXacin 500 MG TABLET PO SCH (09:00)
[2020-03-17] MEDS: Budesonide/Formoterol 160/4.5 1 PUFF INH IH SCH ×2 (10:56→21:28)
[2020-03-17] MEDS: Insulin DETEMIR 100 UNIT/ML X5UNITS SQ SCH (16:17)
[2020-03-18] MEDS: Ipratropium/Albuterol Neb 3 ML IH SCH ×3 (03:22→15:36)
[2020-03-18] MEDS: *HR* Heparin 5,000 UNIT/ML VIAL SQ SCH ×2 (04:53→14:47)
[2020-03-18 05:17] LABS: Basophils % 0.3 %; Eosinophils % 1.2 %; Red Cell Distribution Width 17.2 % (11.5-14.5)
[2020-03-18 05:18] LABS: Eosinophils # 0.1 K/mcL (0.0-0.6); Hematocrit 27.6 % (35.3-44.9); Immature Granulocytes % 2.6 % (0-4); Lymphocytes # 0.5 K/mcL (0.6-4.6); Mean Corpuscular HGB Conc 32.6 g/dL (31.6-35.5); Mean Corpuscular Hemoglobin 35.4 pg (28.0-33.3); Mean Corpuscular Volume 108.7 fL (83.0-100.0); Monocytes # 0.5 K/mcL (0.0-1.3); Monocytes % 7.9 %; Neutrophils # 5.2 K/mcL (1.6-8.9); Red Blood Count 2.54 M/mcL (3.82-4.97); White Blood Count 6.4 K/mcL (4.3-11.1)
[2020-03-18 05:19] LABS: Platelet Count 85 K/mcL (140-400)
[2020-03-18 05:50] LABS: Calcium 8.8 mg/dL (8.6-10.3); Potassium 4.8 mEq/L (3.5-5.1)
[2020-03-18] MEDS: allopurinoL 100 MG TABLET PO SCH (08:42)
[2020-03-18] MEDS: Sennosides 8.6 MG TABLET PO SCH (08:42)
[2020-03-18] MEDS: Isosorbide MONOnitrate (24 HR) 60 MG TAB.ER.24H PO SCH (08:42)
[2020-03-18] MEDS: Aspirin Enteric Coated 81 MG Tablet PO SCH (08:43)
[2020-03-18] MEDS: carvediloL 25 MG TABLET PO SCH (08:43)
[2020-03-18] MEDS: Insulin LISPRO 300 UNITS/3 ML VIAL SQ SCH ×4 (08:44→12:13)
[2020-03-18] MEDS: Insulin DETEMIR 100 UNIT/ML X5UNITS SQ SCH (08:44)
[2020-03-18] MEDS ORDERED: predniSONE 20 MG TABLET PO SCH (09:00)
[2020-03-18] MEDS: Budesonide/Formoterol 160/4.5 1 PUFF INH IH SCH (10:41)
[2020-03-18] MEDS ORDERED: cloNIDine HCL 0.1 MG TABLET PO SCH (11:15)
[2020-03-18 12:43] VITALS: BP 166/68
== END 2020-03-18 16:12 | DRG 871 ==
LOC: 2NENU → SUATTDRO 03-10 10:44 → 2NNU 03-10 17:42 → ICNU 03-11 08:58 → 2NNU 03-13 15:24 → 2ANU 03-16 15:55
PROVIDERS: ADMIT Internal Medicine; ATTEND Internal Medicine

== ENCOUNTER 2020-04-22 14:44 | Inpatient (IN) ==
[2020-04-22] MEDS ORDERED: Ringers Solution, Lactated 1,000 ML IVC ONE (18:30)
[2020-04-22 18:36] LABS: Adenovirus Not Detected (Not Detect); Coronavirus 229E Not Detected (Not Detect); Coronavirus HKU1 Not Detected (Not Detect); Coronavirus NL63 Not Detected (Not Detect); Coronavirus OC43 Not Detected (Not Detect)
[2020-04-22 18:38] LABS: Bordetella Pertussis Not Detected (Not Detect); Chlamydophila pneumoniae Not Detected (Not Detect); Human Metapneumovirus Not Detected (Not Detect); Human Rhinovirus/Enterovirus Not Detected (Not Detect); Influenza A Subtype 2009 H1 Not Detected (Not Detect); Influenza B Not Detected (Not Detect); Mycoplasma pneumoniae Not Detected (Not Detect); Parainfluenza Virus 1 Not Detected (Not Detect); Parainfluenza Virus 2 Not Detected (Not Detect); Parainfluenza Virus 3 Not Detected (Not Detect); Parainfluenza Virus 4 Not Detected (Not Detect); Respiratory Syncytial Virus Not Detected (Not Detect); SARS-CoV-2 Not Detected (Not Detect)
[2020-04-22] MEDS ORDERED: cefTRIAXone 1,000 MG in Water for inj. (sterile) 10 ML IVPB SCH (18:46)
[2020-04-22] MEDS ORDERED: Naloxone 0.4 MG/ML INJ IVP PRN (18:47)
[2020-04-22] MEDS ORDERED: Ipratropium/Albuterol Neb 3 ML IH PRN (18:55)
[2020-04-22] MEDS ORDERED: *HR* Dextrose 50 % in Water (Vial) 50 ML VIAL IVP PRN (18:56)
[2020-04-22] MEDS ORDERED: Dextrose Gel 15 GM/37.5 ML TUBE PO PRN ×2 (18:56)
[2020-04-22] MEDS ORDERED: D5% in Water 1,000 ML IVC PRN (18:56)
[2020-04-22] MEDS: Insulin LISPRO 300 UNITS/3 ML VIAL SQ SCH ×2 (20:41→20:42)
[2020-04-22] MEDS: Acetaminophen 325 MG TABLET PO PRN (20:54)
[2020-04-22] MEDS: 0.9 % Sodium Chloride 1,000 ML IVC SCH (20:54)
[2020-04-22] MEDS: cefTRIAXone 1,000 MG in Water for inj. (sterile) 10 ML IVP SCH (20:56)
[2020-04-22 21:03] LABS: Basophils % 0.2 %; Eosinophils # 0.1 K/mcL (0.0-0.6); Eosinophils % 1.1 %; Hemoglobin 7.5 g/dL (11.5-15.4); Immature Granulocytes % 1.3 % (0-4); Immature Platelets 11.4 % (1.1-6.1); Lymphocytes # 0.3 K/mcL (0.6-4.6); Lymphocytes % 5.8 %; Mean Corpuscular HGB Conc 31.3 g/dL (31.6-35.5); Mean Corpuscular Hemoglobin 36.4 pg (28.0-33.3); Mean Corpuscular Volume 116.5 fL (83.0-100.0); Monocytes # 0.3 K/mcL (0.0-1.3); Neutrophils # 4.6 K/mcL (1.6-8.9); Red Blood Count 2.06 M/mcL (3.82-4.97); Red Cell Distribution Width 17.9 % (11.5-14.5); Segmented Neutrophils % 85.6 %; White Blood Count 5.4 K/mcL (4.3-11.1)
[2020-04-22 21:07] LABS: Platelet Count 72 K/mcL (140-400)
[2020-04-22 21:34] LABS: Anisocytosis 1+ (Not Present); Platelet Estimate Decreased (Normal)
[2020-04-22 21:36] LABS: Macrocytosis Present (Not Present); Polychromasia 1+ (Not Present)
[2020-04-22 21:37] LABS: Hypochromasia Present (Not Present); Microcytosis Present (Not Present); Spherocytes 1+ (Not Present)
[2020-04-22 21:39] LABS: Basophilic Stippling 1+ (Not Present)
[2020-04-23 01:44] LABS: Basophils % 0.2 %; Hemoglobin 7.3 g/dL (11.5-15.4)
[2020-04-23 01:46] LABS: Eosinophils # 0.1 K/mcL (0.0-0.6); Eosinophils % 1.8 %; Hematocrit 23.5 % (35.3-44.9); Immature Granulocytes % 2.8 % (0-4); Immature Platelets 12.4 % (1.1-6.1); Lymphocytes # 0.2 K/mcL (0.6-4.6); Lymphocytes % 4.8 %; Mean Corpuscular HGB Conc 31.1 g/dL (31.6-35.5); Mean Corpuscular Hemoglobin 36.1 pg (28.0-33.3); Mean Corpuscular Volume 116.3 fL (83.0-100.0); Mean Platelet Volume 12.9 fL (9.4-12.4); Monocytes # 0.2 K/mcL (0.0-1.3); Monocytes % 4.6 %; Neutrophils # 4.3 K/mcL (1.6-8.9); Red Blood Count 2.02 M/mcL (3.82-4.97); Red Cell Distribution Width 17.8 % (11.5-14.5); Segmented Neutrophils % 85.8 %
[2020-04-23 01:47] LABS: Platelet Count 70 K/mcL (140-400)
[2020-04-23 02:06] LABS: Albumin/Globulin Ratio 1.5 (1.1-2.2); Bilirubin,Total 0.8 mg/dL (0.3-1.0); Calcium 8.2 mg/dL (8.6-10.3); Potassium 3.2 mEq/L (3.5-5.1)
[2020-04-23 02:41] LABS: Anisocytosis 1+ (Not Present); Macrocytosis Present (Not Present); Platelet Estimate Decreased (Normal)
[2020-04-23] MEDS: Insulin LISPRO 300 UNITS/3 ML VIAL SQ SCH ×4 (08:25→21:44)
[2020-04-23] MEDS: Furosemide 40 MG TABLET PO SCH ×2 (09:26→17:07)
[2020-04-23 12:38] LABS: Hematocrit 24.1 % (35.3-44.9); Hemoglobin 7.6 g/dL (11.5-15.4)
[2020-04-23] MEDS: D5% in 0.45% NACL 1,000 ML IVC SCH (14:08)
[2020-04-23] MEDS: 0.9 % Sodium Chloride 1,000 ML IVC SCH (15:31)
[2020-04-23] MEDS: cefTRIAXone 1,000 MG in Water for inj. (sterile) 10 ML IVP SCH (17:08)
[2020-04-23] MEDS: Acetaminophen 325 MG TABLET PO PRN (17:11)
[2020-04-23 18:46] LABS: Hematocrit 23.9 % (35.3-44.9); Hemoglobin 7.4 g/dL (11.5-15.4)
[2020-04-23 19:05] LABS: Calcium 8.2 mg/dL (8.6-10.3); Potassium 3.6 mEq/L (3.5-5.1)
[2020-04-24 05:58] LABS: Basophils % 0.5 %; Hemoglobin 7.4 g/dL (11.5-15.4); Red Cell Distribution Width 17.5 % (11.5-14.5)
[2020-04-24 06:00] LABS: Eosinophils # 0.2 K/mcL (0.0-0.6); Eosinophils % 6.4 %; Immature Granulocytes % 0.8 % (0-4); Immature Platelets 13.9 % (1.1-6.1); Lymphocytes # 0.6 K/mcL (0.6-4.6); Lymphocytes % 16.8 %; Mean Corpuscular HGB Conc 30.8 g/dL (31.6-35.5); Mean Corpuscular Hemoglobin 35.4 pg (28.0-33.3); Mean Corpuscular Volume 114.8 fL (83.0-100.0); Monocytes # 0.3 K/mcL (0.0-1.3); Monocytes % 7.2 %; Neutrophils # 2.6 K/mcL (1.6-8.9); Nucleated Red Blood Cells 0.5 /100 WBC (0); Red Blood Count 2.09 M/mcL (3.82-4.97); Segmented Neutrophils % 68.3 %; White Blood Count 3.8 K/mcL (4.3-11.1)
[2020-04-24 06:03] LABS: Platelet Count 70 K/mcL (140-400)
[2020-04-24 06:21] LABS: Anisocytosis 1+ (Not Present); Macrocytosis Present (Not Present); Platelet Estimate Decreased (Normal); Polychromasia 1+ (Not Present)
[2020-04-24 06:23] LABS: Calcium 8.1 mg/dL (8.6-10.3); Potassium 3.3 mEq/L (3.5-5.1)
[2020-04-24] MEDS: Insulin LISPRO 300 UNITS/3 ML VIAL SQ SCH ×4 (08:27→22:36)
[2020-04-24] MEDS: Furosemide 40 MG TABLET PO SCH ×2 (08:50→16:04)
[2020-04-24] MEDS: Ondansetron 4 MG/2 ML VIAL IVP PRN (16:04)
[2020-04-24] MEDS: cefTRIAXone 1,000 MG in Water for inj. (sterile) 10 ML IVP SCH (18:37)
[2020-04-24] MEDS: D5% in 0.45% NACL 1,000 ML IVC SCH (19:24)
[2020-04-25] MEDS ORDERED: Melatonin 3 MG TABLET PO ONE (00:45)
[2020-04-25] MEDS: Ondansetron 4 MG/2 ML VIAL IVP PRN ×2 (06:41→19:33)
[2020-04-25 07:45] LABS: Estimated Average Glucose 140 mg/dl; Hemoglobin A1C 6.5 %
[2020-04-25 07:46] LABS: Hemoglobin 7.7 g/dL (11.5-15.4); Red Cell Distribution Width 17.1 % (11.5-14.5)
[2020-04-25 07:48] LABS: Hematocrit 24.8 % (35.3-44.9); Immature Platelets 14.2 % (1.1-6.1); Mean Corpuscular Hemoglobin 35.5 pg (28.0-33.3); Mean Corpuscular Volume 114.3 fL (83.0-100.0); Mean Platelet Volume 12.9 fL (9.4-12.4); Red Blood Count 2.17 M/mcL (3.82-4.97); White Blood Count 3.3 K/mcL (4.3-11.1)
[2020-04-25 07:57] LABS: Platelet Count 81 K/mcL (140-400)
[2020-04-25 08:04] LABS: Calcium 8.8 mg/dL (8.6-10.3); Potassium 3.8 mEq/L (3.5-5.1)
[2020-04-25] MEDS ORDERED: *HR* Promethazine 25 MG/ML VIAL IVP PRN (08:08)
[2020-04-25] MEDS: Insulin LISPRO 300 UNITS/3 ML VIAL SQ SCH ×4 (08:19→21:35)
[2020-04-25 08:23] LABS: Anisocytosis 1+ (Not Present); Lymphocytes # 0.4 K/mcL (0.6-4.6); Monocytes # 0.1 K/mcL (0.0-1.3); Neutrophils # 2.8 K/mcL (1.6-8.9); Platelet Estimate Decreased (Normal)
[2020-04-25 08:24] LABS: Macrocytosis Present (Not Present)
[2020-04-25] MEDS ORDERED: GI Cocktail 40 ML EACH PO ONE (09:30)
[2020-04-25] MEDS ORDERED: polyethylene glycoL 3350 17 GM POWD.PACK PO PRN (09:46)
[2020-04-25] MEDS: Pantoprazole 40 MG VIAL IVP SCH ×2 (11:08→17:06)
[2020-04-25] MEDS: Furosemide 40 MG TABLET PO SCH ×2 (13:09→17:06)
[2020-04-25] MEDS: amLODIPine 5 MG TABLET PO SCH (17:06)
[2020-04-25] MEDS: carvediloL 25 MG TABLET PO SCH (17:06)
[2020-04-25] MEDS: cefTRIAXone 1,000 MG in Water for inj. (sterile) 10 ML IVP SCH (17:06)
[2020-04-25] MEDS: Mag Hydrox/Al Hydrox/Simeth 30 ML UDC PO SCH (18:27)
[2020-04-26 05:38] LABS: Basophils % 0.8 %; Eosinophils # 0.2 K/mcL (0.0-0.6); Eosinophils % 4.5 %; Hematocrit 26.3 % (35.3-44.9); Hemoglobin 8.1 g/dL (11.5-15.4); Immature Granulocytes % 0.8 % (0-4); Lymphocytes # 1.2 K/mcL (0.6-4.6); Lymphocytes % 33.4 %; Mean Corpuscular HGB Conc 30.8 g/dL (31.6-35.5); Mean Corpuscular Hemoglobin 35.1 pg (28.0-33.3); Mean Corpuscular Volume 113.9 fL (83.0-100.0); Mean Platelet Volume 12.4 fL (9.4-12.4); Monocytes # 0.3 K/mcL (0.0-1.3); Monocytes % 7.4 %; Neutrophils # 1.9 K/mcL (1.6-8.9); Platelet Count 103 K/mcL (140-400); Red Blood Count 2.31 M/mcL (3.82-4.97); Red Cell Distribution Width 16.7 % (11.5-14.5); Segmented Neutrophils % 53.1 %; White Blood Count 3.5 K/mcL (4.3-11.1)
[2020-04-26 05:49] LABS: Calcium 9.3 mg/dL (8.6-10.3); Potassium 4.3 mEq/L (3.5-5.1)
[2020-04-26] MEDS: Pantoprazole 40 MG VIAL IVP SCH (06:26)
[2020-04-26 06:42] LABS: Anisocytosis 1+ (Not Present); Macrocytosis Present (Not Present); Platelet Estimate Decreased (Normal)
[2020-04-26] MEDS: amLODIPine 5 MG TABLET PO SCH (07:09)
[2020-04-26] MEDS: carvediloL 25 MG TABLET PO SCH (07:10)
[2020-04-26] MEDS: Furosemide 40 MG TABLET PO SCH (07:10)
[2020-04-26] MEDS: Mag Hydrox/Al Hydrox/Simeth 30 ML UDC PO SCH (07:11)
[2020-04-26] MEDS ORDERED: Aspirin Enteric Coated 81 MG Tablet PO SCH (09:00)
[2020-04-26] MEDS ORDERED: Cholecalciferol (D-3) 1,000 UNIT (25MCG) TABLET PO SCH (09:00)
[2020-04-26] MEDS ORDERED: Isosorbide MONOnitrate (24 HR) 60 MG TAB.ER.24H PO SCH (09:00)
[2020-04-26] MEDS ORDERED: allopurinoL 100 MG TABLET PO SCH (09:00)
[2020-04-26 09:08] VITALS: BP 162/78
[2020-04-26] MEDS: Insulin LISPRO 300 UNITS/3 ML VIAL SQ SCH (10:06)
== END 2020-04-26 12:29 | disposition home health service (06) | DRG 872 ==
LOC: 3ANU → SUATTDRO 18:47
PROVIDERS: ADMIT Family Medicine; ATTEND Family Medicine

== ENCOUNTER 2020-06-09 06:19 | Observation (INO) ==
[~2020-06-09 06:19] MED LIST: Acetaminophen IV 1,000 MG/100 ML INFUS..BTL IVPB ONE
[2020-06-09] MEDS ORDERED: Lidocaine HCL 4 ML Topical Solution (Laryng-O-Jet Kit Sterile Pak) TP ONE ×2 (06:48)
[2020-06-09] MEDS ORDERED: Clindamycin 900 MG/50 ML 900 MG/50 ML IV.SOLN IVPB ONE (07:21)
[2020-06-09] MEDS ORDERED: Lidocaine -MPF 2% 5 ML VIAL ONE (07:24)
[2020-06-09] MEDS ORDERED: Ringers Solution, Lactated 1,000 ML IVC SCH (07:30)
[2020-06-09] MEDS ORDERED: 0.9 % Sodium Chloride 500 ML IVC SCH (07:45)
[2020-06-09] MEDS ORDERED: *HR* FentaNYL (PF) 100 MCG/2 ML VIAL ONE (07:49)
[2020-06-09] MEDS ORDERED: *HR* Propofol 200 MG/20 ML VIAL IVP ONE (07:49)
[2020-06-09] MEDS ORDERED: Dexamethasone 4 MG/ML VIAL ONE (07:50)
[2020-06-09] MEDS ORDERED: *HR* Rocuronium Bromide 50 MG/5 ML VIAL ONE (07:50)
[2020-06-09] MEDS ORDERED: *HR* Succinylcholine 200 MG/10 ML VIAL IVP ONE (07:50)
[2020-06-09] MEDS ORDERED: Lidocaine -MPF 2% 2 ML VIAL ONE (07:50)
[2020-06-09] MEDS ORDERED: Ondansetron 4 MG/2 ML VIAL ONE (07:50)
[2020-06-09] MEDS ORDERED: *HR* Vasopressin 20 UNIT/ML VIAL ONE (07:56)
[2020-06-09] MEDS ORDERED: Albuterol 2.5 MG/3 ML NEBULIZER ONE (08:01)
[2020-06-09] MEDS ORDERED: Albuterol 2.5 MG/3 ML NEBULIZER IH ONE (08:05)
[2020-06-09] MEDS ORDERED: *HR* PHENYLEPHRINE 1,000 MCG/10 ML SYRINGE IVP ONE (08:20)
[2020-06-09] MEDS ORDERED: Albuterol 2.5 MG/3 ML NEBULIZER IH PRN (09:42)
[2020-06-09] MEDS ORDERED: Ondansetron 4 MG/2 ML VIAL IVP ONE (09:42)
[2020-06-09] MEDS ORDERED: *HR* OxyCODONE Immed Rel 5 MG TABLET PO PRN (09:42)
[2020-06-09] MEDS ORDERED: *HR* FentaNYL (PF) 100 MCG/2 ML VIAL IVP PRN (09:42)
[2020-06-09] MEDS ORDERED: *HR* HYDROcodone/Acet 5/325 mg TABLET PO ONE (12:40)
[2020-06-09] MEDS ORDERED: Ondansetron 4 MG/2 ML VIAL IVP PRN (16:10)
[2020-06-09] MEDS ORDERED: Ketorolac 15 MG/ML VIAL IVP PRN (16:10)
[2020-06-09] MEDS: 0.9 % Sodium Chloride 1,000 ML IVC SCH (16:45)
[2020-06-10] MEDS: 0.9 % Sodium Chloride 1,000 ML IVC SCH (05:15)
[2020-06-10] MEDS: Pantoprazole 40 MG VIAL IVP SCH (07:43)
[2020-06-10] MEDS: hydrALAZINE 25 MG TABLET PO SCH ×3 (07:58→20:04)
[2020-06-10] MEDS: allopurinoL 100 MG TABLET PO SCH (07:58)
[2020-06-10] MEDS: amLODIPine 5 MG TABLET PO SCH (07:59)
[2020-06-10] MEDS: *HR* GlipiZIDE XL (24 HR) 10 MG TABLET PO SCH (07:59)
[2020-06-10] MEDS: carvediloL 25 MG TABLET PO SCH ×2 (07:59→15:53)
[2020-06-10] MEDS: Aspirin Enteric Coated 81 MG Tablet PO SCH (07:59)
[2020-06-10] MEDS: Isosorbide MONOnitrate (24 HR) 60 MG TAB.ER.24H PO SCH (07:59)
[2020-06-10] MEDS ORDERED: *HR* FentaNYL (PF) 100 MCG/2 ML VIAL IVP ONE (09:24)
[2020-06-10] MEDS ORDERED: *HR* OxyCODONE/APAP 5/325 TABLET PO PRN (09:24)
[2020-06-10] MEDS ORDERED: Acetaminophen IV 1,000 MG/100 ML INFUS..BTL IVPB ONE (09:25)
[2020-06-10] MEDS: Budesonide/Formoterol 160/4.5 1 PUFF INH IH SCH ×2 (10:28→20:21)
[2020-06-10] MEDS: Acetaminophen IV 500 MG/50 ML INFUS..BTL IVPB SCH ×2 (15:54→21:29)
[2020-06-10] MEDS: *HR* Heparin 5,000 UNIT/ML VIAL SQ SCH (17:40)
[2020-06-11] MEDS: Acetaminophen IV 500 MG/50 ML INFUS..BTL IVPB SCH ×3 (01:30→09:49)
[2020-06-11] MEDS: *HR* Heparin 5,000 UNIT/ML VIAL SQ SCH (04:58)
[2020-06-11] MEDS: Budesonide/Formoterol 160/4.5 1 PUFF INH IH SCH (07:23)
[2020-06-11 07:32] VITALS: BP 145/66
[2020-06-11] MEDS: Aspirin Enteric Coated 81 MG Tablet PO SCH (09:46)
[2020-06-11] MEDS: carvediloL 25 MG TABLET PO SCH (09:46)
[2020-06-11] MEDS: allopurinoL 100 MG TABLET PO SCH (09:47)
[2020-06-11] MEDS: amLODIPine 5 MG TABLET PO SCH (09:47)
[2020-06-11] MEDS: Isosorbide MONOnitrate (24 HR) 60 MG TAB.ER.24H PO SCH (09:47)
[2020-06-11] MEDS: hydrALAZINE 25 MG TABLET PO SCH (09:47)
[2020-06-11] MEDS: *HR* GlipiZIDE XL (24 HR) 10 MG TABLET PO SCH (09:47)
[2020-06-11] MEDS: Pantoprazole 40 MG VIAL IVP SCH (09:48)
== END 2020-06-11 12:44 | disposition home health service (06) ==
LOC: 2ANU 06:19 → SAMDAY 06:19 → 2ANU 16:31
PROVIDERS: ADMIT Surgery; ATTEND Surgery

== ENCOUNTER 2020-06-12 09:03 | Inpatient (IN) ==
[2020-06-12] MEDS ORDERED: *HR* Dextrose 50 % in Water (Vial) 50 ML VIAL IVP PRN (11:52)
[2020-06-12] MEDS ORDERED: Naloxone 0.4 MG/ML INJ IVP PRN (11:52)
[2020-06-12] MEDS ORDERED: *HR* OxyCODONE Immed Rel 5 MG TABLET PO PRN (11:52)
[2020-06-12] MEDS ORDERED: D5% in Water 1,000 ML IVC PRN (11:52)
[2020-06-12] MEDS ORDERED: Acetaminophen 325 MG TABLET PO PRN (11:52)
[2020-06-12] MEDS ORDERED: Dextrose Gel 15 GM/37.5 ML TUBE PO PRN ×2 (11:52)
[2020-06-12] MEDS ORDERED: Ondansetron 4 MG/2 ML VIAL IVP PRN (11:52)
[2020-06-12] MEDS ORDERED: Perflutren Lipid Microsphere 1.3 ML in 0.9 % Sodium Chloride 8.7 ML IVP PRN (11:57)
[2020-06-12] MEDS ORDERED: Azithromycin 500 MG in 0.9 % Sodium Chloride 250 ML IVPB SCH (12:00)
[2020-06-12] MEDS: Cefepime HCl 2,000 MG in 0.9 % Sodium Chloride Mini Bag 100 ML IVPB SCH ×2 (15:23→18:01)
[2020-06-12] MEDS: *HR* HYDROcodone/Acet 5/325 mg TABLET PO PRN ×2 (15:24→21:45)
[2020-06-12] MEDS: Furosemide 40 MG/4 ML VIAL IVP SCH (15:24)
[2020-06-12] MEDS: *HR* Heparin 5,000 UNIT/ML VIAL SQ SCH (16:35)
[2020-06-12] MEDS: Insulin LISPRO 300 UNITS/3 ML VIAL SQ SCH (16:36)
[2020-06-13] MEDS: *HR* Heparin 5,000 UNIT/ML VIAL SQ SCH ×2 (06:12→17:42)
[2020-06-13] MEDS: *HR* HYDROcodone/Acet 5/325 mg TABLET PO PRN ×2 (06:12→20:41)
[2020-06-13] MEDS: Cefepime HCl 2,000 MG in 0.9 % Sodium Chloride Mini Bag 100 ML IVPB SCH (06:13)
[2020-06-13] MEDS: Insulin LISPRO 300 UNITS/3 ML VIAL SQ SCH ×3 (08:12→17:42)
[2020-06-13] MEDS ORDERED: Azithromycin 500 MG in 0.9 % Sodium Chloride 250 ML IVPB SCH (09:00)
[2020-06-13 09:57] LABS: Hemoglobin 7.5 g/dL (11.5-15.4)
[2020-06-13 09:59] LABS: Hematocrit 24.1 % (35.3-44.9); Immature Platelets 14.3 % (1.1-6.1); Mean Corpuscular HGB Conc 31.1 g/dL (31.6-35.5); Mean Corpuscular Hemoglobin 36.9 pg (28.0-33.3); Mean Corpuscular Volume 118.7 fL (83.0-100.0); Mean Platelet Volume 13.4 fL (9.4-12.4); Red Blood Count 2.03 M/mcL (3.82-4.97); White Blood Count 5.2 K/mcL (4.3-11.1)
[2020-06-13 10:00] LABS: Platelet Count 77 K/mcL (140-400)
[2020-06-13 10:14] LABS: Calcium 9.2 mg/dL (8.6-10.3); Chol/HDL Ratio 2.8 (0-4.9); Phosphorous 3.6 mg/dL (2.7-4.5); Potassium 3.8 mEq/L (3.5-5.1)
[2020-06-13 10:22] LABS: Anisocytosis 1+ (Not Present); Lymphocytes # 0.4 K/mcL (0.6-4.6); Macrocytosis Present (Not Present); Monocytes # 0.1 K/mcL (0.0-1.3); Neutrophils # 4.7 K/mcL (1.6-8.9); Platelet Estimate Decreased (Normal)
[2020-06-13] MEDS: Furosemide 40 MG/4 ML VIAL IVP SCH (10:36)
[2020-06-13] MEDS: Isosorbide MONOnitrate (24 HR) 60 MG TAB.ER.24H PO SCH (12:10)
[2020-06-13] MEDS: amLODIPine 5 MG TABLET PO SCH (12:10)
[2020-06-13] MEDS: Aspirin Enteric Coated 81 MG Tablet PO SCH (12:11)
[2020-06-13] MEDS: cloNIDine HCL 0.1 MG TABLET PO SCH ×2 (12:13→20:41)
[2020-06-13] MEDS ORDERED: Ipratropium/Albuterol Neb 3 ML IH PRN (13:49)
[2020-06-13] MEDS: Budesonide/Formoterol 160/4.5 1 PUFF INH IH SCH ×2 (13:59→19:59)
[2020-06-13] MEDS: polyethylene glycoL 3350 17 GM POWD.PACK PO SCH (14:39)
[2020-06-13] MEDS: allopurinoL 100 MG TABLET PO SCH (14:39)
[2020-06-13] MEDS: hydrALAZINE 25 MG TABLET PO SCH ×2 (14:39→20:42)
[2020-06-13] MEDS: carvediloL 25 MG TABLET PO SCH (17:42)
[2020-06-13] MEDS: Sennosides 8.6 MG TABLET PO SCH (20:41)
[2020-06-14 01:47] LABS: Hematocrit 21.6 % (35.3-44.9); Hemoglobin 6.9 g/dL (11.5-15.4); Immature Platelets 11.8 % (1.1-6.1); Mean Corpuscular HGB Conc 31.9 g/dL (31.6-35.5); Mean Corpuscular Hemoglobin 38.3 pg (28.0-33.3); Mean Platelet Volume 13.4 fL (9.4-12.4); Red Cell Distribution Width 15.9 % (11.5-14.5); White Blood Count 4.9 K/mcL (4.3-11.1)
[2020-06-14 01:51] LABS: Platelet Count 85 K/mcL (140-400)
[2020-06-14 02:05] LABS: Calcium 8.7 mg/dL (8.6-10.3); Potassium 4.2 mEq/L (3.5-5.1)
[2020-06-14 02:23] LABS: Anisocytosis 1+ (Not Present); Basophils # 0.1 K/mcL (0.0-0.2); Lymphocytes # 0.2 K/mcL (0.6-4.6); Neutrophils # 4.6 K/mcL (1.6-8.9)
[2020-06-14 02:24] LABS: Platelet Estimate Decreased (Normal); Poikilocytosis 1+ (Not Present)
[2020-06-14] MEDS ORDERED: 0.9 % Sodium Chloride 500 ML ONE (05:25)
[2020-06-14] MEDS: *HR* HYDROcodone/Acet 5/325 mg TABLET PO PRN ×2 (05:29→21:48)
[2020-06-14] MEDS: *HR* Heparin 5,000 UNIT/ML VIAL SQ SCH ×2 (05:29→17:27)
[2020-06-14] MEDS: Budesonide/Formoterol 160/4.5 1 PUFF INH IH SCH ×2 (07:37→19:59)
[2020-06-14] MEDS: allopurinoL 100 MG TABLET PO SCH (07:51)
[2020-06-14] MEDS: amLODIPine 5 MG TABLET PO SCH (07:51)
[2020-06-14] MEDS: cloNIDine HCL 0.1 MG TABLET PO SCH ×2 (07:51→21:48)
[2020-06-14] MEDS: Isosorbide MONOnitrate (24 HR) 60 MG TAB.ER.24H PO SCH (07:51)
[2020-06-14] MEDS: Cholecalciferol (D-3) 1,000 UNIT (25MCG) TABLET PO SCH (07:51)
[2020-06-14] MEDS: Sennosides 8.6 MG TABLET PO SCH ×2 (07:51→21:47)
[2020-06-14] MEDS: hydrALAZINE 25 MG TABLET PO SCH ×3 (07:51→21:47)
[2020-06-14] MEDS: Insulin LISPRO 300 UNITS/3 ML VIAL SQ SCH ×3 (07:51→17:28)
[2020-06-14] MEDS: carvediloL 25 MG TABLET PO SCH ×2 (07:52→17:27)
[2020-06-14] MEDS: Aspirin Enteric Coated 81 MG Tablet PO SCH (07:52)
[2020-06-14] MEDS: polyethylene glycoL 3350 17 GM POWD.PACK PO SCH (07:52)
[2020-06-15 02:30] LABS: Bilirubin,Urine Negative (Negative); Blood,Urine Negative (Negative); Clarity,Urine Clear (Clear); Color,Urine Light-Yellow (Yellow); Glucose,Urine (UA) Normal (Normal); Ketones,Urine Negative (Negative); Leukocyte Esterase,Urine Negative (Negative); Nitrite,Urine Negative (Negative); Protein,Urine Trace mg/dL (Neg-Trace); Specific Gravity,Urine 1.018 (1.010-1.025); Urobilinogen,Urine Normal (Normal)
[2020-06-15 02:40] LABS: Protein/Creatinine Ratio,Urine 0.34 mg/mg (0.00-0.20); Sodium, Urine 27.5 mEq/L
[2020-06-15 02:59] LABS: Basophils % 0.9 %; Red Cell Distribution Width 18.6 % (11.5-14.5)
[2020-06-15 03:01] LABS: Eosinophils # 0.1 K/mcL (0.0-0.6); Eosinophils % 3.8 %; Hematocrit 24.7 % (35.3-44.9); Hemoglobin 7.7 g/dL (11.5-15.4); Immature Granulocytes % 3.5 % (0-4); Immature Platelets 14.1 % (1.1-6.1); Lymphocytes # 0.8 K/mcL (0.6-4.6); Lymphocytes % 22.9 %; Mean Corpuscular HGB Conc 31.2 g/dL (31.6-35.5); Mean Corpuscular Hemoglobin 35.8 pg (28.0-33.3); Mean Corpuscular Volume 114.9 fL (83.0-100.0); Mean Platelet Volume 13.6 fL (9.4-12.4); Monocytes # 0.3 K/mcL (0.0-1.3); Monocytes % 7.5 %; Red Blood Count 2.15 M/mcL (3.82-4.97); Segmented Neutrophils % 61.4 %; White Blood Count 3.5 K/mcL (4.3-11.1)
[2020-06-15 03:08] LABS: Calcium 8.7 mg/dL (8.6-10.3); Potassium 4.4 mEq/L (3.5-5.1)
[2020-06-15 03:09] LABS: Neutrophils # 2.2 K/mcL (1.6-8.9); Platelet Count 76 K/mcL (140-400)
[2020-06-15 04:06] LABS: Anisocytosis 1+ (Not Present); Macrocytosis Present (Not Present); Platelet Estimate Decreased (Normal); Poikilocytosis 1+ (Not Present)
[2020-06-15] MEDS: *HR* Heparin 5,000 UNIT/ML VIAL SQ SCH ×2 (06:26→17:07)
[2020-06-15] MEDS: Budesonide/Formoterol 160/4.5 1 PUFF INH IH SCH ×2 (07:22→21:47)
[2020-06-15] MEDS: Insulin LISPRO 300 UNITS/3 ML VIAL SQ SCH ×3 (08:58→17:07)
[2020-06-15] MEDS: polyethylene glycoL 3350 17 GM POWD.PACK PO SCH (08:58)
[2020-06-15] MEDS: Cholecalciferol (D-3) 1,000 UNIT (25MCG) TABLET PO SCH (08:58)
[2020-06-15] MEDS: carvediloL 25 MG TABLET PO SCH ×2 (08:59→17:07)
[2020-06-15] MEDS: hydrALAZINE 25 MG TABLET PO SCH ×3 (08:59→21:28)
[2020-06-15] MEDS: amLODIPine 5 MG TABLET PO SCH (08:59)
[2020-06-15] MEDS: allopurinoL 100 MG TABLET PO SCH (08:59)
[2020-06-15] MEDS: Sennosides 8.6 MG TABLET PO SCH ×2 (08:59→21:28)
[2020-06-15] MEDS: Aspirin Enteric Coated 81 MG Tablet PO SCH (08:59)
[2020-06-15] MEDS: cloNIDine HCL 0.1 MG TABLET PO SCH ×2 (09:00→21:27)
[2020-06-15] MEDS: Furosemide 40 MG TABLET PO SCH (09:00)
[2020-06-15] MEDS: Isosorbide MONOnitrate (24 HR) 60 MG TAB.ER.24H PO SCH (09:00)
[2020-06-15] MEDS ORDERED: 0.9 % Sodium Chloride 250 ML ONE (10:47)
[2020-06-16 05:45] LABS: Hematocrit 26.7 % (35.3-44.9); Hemoglobin 8.4 g/dL (11.5-15.4); Immature Platelets 14.4 % (1.1-6.1); Mean Corpuscular HGB Conc 31.5 g/dL (31.6-35.5); Mean Corpuscular Volume 111.3 fL (83.0-100.0); Mean Platelet Volume 13.2 fL (9.4-12.4); Red Cell Distribution Width 20.5 % (11.5-14.5); Segmented Neutrophils % 61.6 %; White Blood Count 3.4 K/mcL (4.3-11.1)
[2020-06-16 05:46] LABS: Basophils % 1.2 %; Eosinophils # 0.2 K/mcL (0.0-0.6); Eosinophils % 4.4 %; Immature Granulocytes % 3.5 % (0-4); Lymphocytes # 0.7 K/mcL (0.6-4.6); Lymphocytes % 21.2 %; Monocytes # 0.3 K/mcL (0.0-1.3); Monocytes % 8.1 %; Neutrophils # 2.1 K/mcL (1.6-8.9)
[2020-06-16] MEDS: *HR* Heparin 5,000 UNIT/ML VIAL SQ SCH ×2 (05:47→16:32)
[2020-06-16 05:49] LABS: Platelet Count 73 K/mcL (140-400)
[2020-06-16 06:03] LABS: Calcium 9.3 mg/dL (8.6-10.3); Potassium 4.3 mEq/L (3.5-5.1)
[2020-06-16 06:15] LABS: Anisocytosis 1+ (Not Present)
[2020-06-16 06:16] LABS: Platelet Estimate Decreased (Normal)
[2020-06-16] MEDS: Budesonide/Formoterol 160/4.5 1 PUFF INH IH SCH ×2 (07:37→20:01)
[2020-06-16] MEDS: Insulin LISPRO 300 UNITS/3 ML VIAL SQ SCH ×3 (08:13→16:32)
[2020-06-16] MEDS: polyethylene glycoL 3350 17 GM POWD.PACK PO SCH (08:14)
[2020-06-16] MEDS: amLODIPine 5 MG TABLET PO SCH (08:14)
[2020-06-16] MEDS: Sennosides 8.6 MG TABLET PO SCH ×2 (08:14→21:00)
[2020-06-16] MEDS: Isosorbide MONOnitrate (24 HR) 60 MG TAB.ER.24H PO SCH (08:14)
[2020-06-16] MEDS: carvediloL 25 MG TABLET PO SCH ×2 (08:14→16:32)
[2020-06-16] MEDS: Cholecalciferol (D-3) 1,000 UNIT (25MCG) TABLET PO SCH (08:14)
[2020-06-16] MEDS: Furosemide 40 MG TABLET PO SCH (08:15)
[2020-06-16] MEDS: hydrALAZINE 25 MG TABLET PO SCH ×3 (08:15→21:01)
[2020-06-16] MEDS: cloNIDine HCL 0.1 MG TABLET PO SCH ×2 (08:15→21:00)
[2020-06-16] MEDS: allopurinoL 100 MG TABLET PO SCH (08:15)
[2020-06-16] MEDS: Aspirin Enteric Coated 81 MG Tablet PO SCH (08:16)
[2020-06-16 18:52] VITALS: BP 183/72
[2020-06-16 19:37] LABS: Adenovirus Not Detected (Not Detect); Bordetella Pertussis Not Detected (Not Detect); Chlamydophila pneumoniae Not Detected (Not Detect); Coronavirus 229E Not Detected (Not Detect); Coronavirus HKU1 Not Detected (Not Detect); Coronavirus NL63 Not Detected (Not Detect); Coronavirus OC43 Not Detected (Not Detect); Human Metapneumovirus Not Detected (Not Detect); Human Rhinovirus/Enterovirus Not Detected (Not Detect); Influenza A Subtype 2009 H1 Not Detected (Not Detect); Influenza B Not Detected (Not Detect); Mycoplasma pneumoniae Not Detected (Not Detect); Parainfluenza Virus 1 Not Detected (Not Detect); Parainfluenza Virus 2 Not Detected (Not Detect); Parainfluenza Virus 3 Not Detected (Not Detect); Parainfluenza Virus 4 Not Detected (Not Detect); Respiratory Syncytial Virus Not Detected (Not Detect); SARS-CoV-2 Not Detected (Not Detect)
== END 2020-06-16 22:29 | DRG 291 ==
LOC: CDU → 2ANU 11:37 → SUATTDRO 12:36
PROVIDERS: ADMIT Internal Medicine; ATTEND Family Medicine

== ENCOUNTER 2020-06-26 09:22 | Inpatient (IN) ==
[2020-06-26] MEDS ORDERED: Naloxone 0.4 MG/ML INJ IVP PRN (13:56)
[2020-06-26] MEDS ORDERED: Dexamethasone 4 MG/ML VIAL IVP SCH (14:15)
[2020-06-26] MEDS: Ipratropium 1 PUFF INHALER IH SCH ×2 (15:36→21:57)
[2020-06-26] MEDS: levoFLOXacin 750 MG/150 ML 750 MG/150 ML BAG IVPB SCH (15:37)
[2020-06-26 15:40] LABS: ABG Base Excess 5 mEq/L (-2 to 3); ABG HCO3 29 mEq/L (21-27); ABG Oxygen Saturation 90 % (95-98); ABG PCO2 40 mmHg (35-45); ABG PH 7.47 pH Units (7.32-7.45); ABG PO2 56 mmHg (85-104); ABG TCO2 30 mEq/L (20-26)
[2020-06-26 16:43] LABS: Hematocrit 21.6 % (35.3-44.9); Hemoglobin 7.1 g/dL (11.5-15.4)
[2020-06-26 16:55] LABS: C-Reactive Protein 62 mg/L (Less than 10); Lactate Dehydrogenase 207 Units/L (140-271)
[2020-06-26 17:13] LABS: Ferritin 416 ng/mL (10-120)
[2020-06-26] MEDS: Insulin LISPRO 300 UNITS/3 ML VIAL SQ SCH (17:33)
[2020-06-26] MEDS: Furosemide 40 MG TABLET PO SCH (18:27)
[2020-06-26] MEDS: Pantoprazole 40 MG VIAL IVP SCH (18:27)
[2020-06-26] MEDS: *HR* HYDROcodone/Acet 5/325 mg TABLET PO PRN (20:36)
[2020-06-26] MEDS: hydrALAZINE 25 MG TABLET PO SCH (20:36)
[2020-06-26] MEDS: cloNIDine HCL 0.1 MG TABLET PO SCH (20:36)
[2020-06-26 21:25] LABS: Hemoglobin 7.6 g/dL (11.5-15.4)
[2020-06-26 21:26] LABS: Hematocrit 23.6 % (35.3-44.9)
[2020-06-26] MEDS: Budesonide/Formoterol 160/4.5 1 PUFF INH IH SCH (21:58)
[2020-06-27] MEDS: Ipratropium 1 PUFF INHALER IH SCH ×4 (03:22→22:10)
[2020-06-27] MEDS: Acetaminophen 325 MG TABLET PO PRN ×2 (04:21→12:48)
[2020-06-27] MEDS: Pantoprazole 40 MG VIAL IVP SCH ×2 (04:22→17:08)
[2020-06-27 05:54] LABS: Hemoglobin 6.9 g/dL (11.5-15.4)
[2020-06-27 05:57] LABS: Basophils % 0.6 %; Eosinophils % 0.6 %; Hematocrit 21.7 % (35.3-44.9); Immature Granulocytes % 0.6 % (0-4); Immature Platelets 14.4 % (1.1-6.1); Lymphocytes # 0.3 K/mcL (0.6-4.6); Lymphocytes % 17.2 %; Mean Corpuscular HGB Conc 31.8 g/dL (31.6-35.5); Mean Corpuscular Volume 106.9 fL (83.0-100.0); Monocytes # 0.1 K/mcL (0.0-1.3); Monocytes % 8.3 %; Red Blood Count 2.03 M/mcL (3.82-4.97); Red Cell Distribution Width 19.7 % (11.5-14.5); Segmented Neutrophils % 72.7 %; White Blood Count 1.6 K/mcL (4.3-11.1)
[2020-06-27 05:58] LABS: INR 1.2; Prothrombin Time 13.3 Seconds (9.4-12.1)
[2020-06-27 06:11] LABS: Neutrophils # 1.2 K/mcL (1.6-8.9); Platelet Count 51 K/mcL (140-400)
[2020-06-27 06:16] LABS: Calcium 8.2 mg/dL (8.6-10.3); Magnesium 1.6 mg/dL (1.6-2.6); Phosphorous 3.3 mg/dL (2.7-4.5); Potassium 3.4 mEq/L (3.5-5.1)
[2020-06-27 06:43] LABS: Anisocytosis 1+ (Not Present); Poikilocytosis 1+ (Not Present); Polychromasia 1+ (Not Present)
[2020-06-27 06:44] LABS: Platelet Estimate Decreased (Normal)
[2020-06-27] MEDS: Furosemide 40 MG TABLET PO SCH (08:06)
[2020-06-27] MEDS: allopurinoL 100 MG TABLET PO SCH (08:06)
[2020-06-27] MEDS: Cholecalciferol (D-3) 1,000 UNIT (25MCG) TABLET PO SCH (08:06)
[2020-06-27] MEDS: cloNIDine HCL 0.1 MG TABLET PO SCH ×2 (08:06→20:36)
[2020-06-27] MEDS: carvediloL 25 MG TABLET PO SCH ×2 (08:06→17:08)
[2020-06-27] MEDS: levoFLOXacin 750 MG/150 ML 750 MG/150 ML BAG IVPB SCH (08:07)
[2020-06-27] MEDS: Insulin LISPRO 300 UNITS/3 ML VIAL SQ SCH ×3 (08:18→17:08)
[2020-06-27] MEDS ORDERED: Isovue-370 500 ML BOTTLE IVP ONE (08:25)
[2020-06-27] MEDS ORDERED: 0.9 % Sodium Chloride 250 ML ONE ×2 (09:16→22:58)
[2020-06-27] MEDS: Budesonide/Formoterol 160/4.5 1 PUFF INH IH SCH ×2 (09:18→22:11)
[2020-06-27 09:22] LABS: Bilirubin,Direct 0.3 mg/dL (0.0-0.2); Bilirubin,Indirect 0.7 mg/dL (0.0-1.0)
[2020-06-27] MEDS: Dexamethasone 4 MG/ML VIAL IVP SCH ×2 (11:49→20:35)
[2020-06-27] MEDS ORDERED: Furosemide 40 MG/4 ML VIAL IVP ONE (12:00)
[2020-06-27] MEDS: hydrALAZINE 25 MG TABLET PO SCH ×3 (14:12→20:36)
[2020-06-27] MEDS: Furosemide 40 MG/4 ML VIAL IVP SCH (15:22)
[2020-06-27] MEDS: Isosorbide MONOnitrate (24 HR) 60 MG TAB.ER.24H PO SCH (15:47)
[2020-06-27] MEDS: amLODIPine 5 MG TABLET PO SCH (15:47)
[2020-06-27] MEDS ORDERED: Vancomycin 1,250 MG/262.5 ML IV.SOLN IVPB ONE (17:00)
[2020-06-27 18:04] LABS: Hematocrit 25.8 % (35.3-44.9)
[2020-06-27 18:06] LABS: Hemoglobin 8.5 g/dL (11.5-15.4)
[2020-06-27] MEDS: *HR* HYDROcodone/Acet 5/325 mg TABLET PO PRN (20:36)
[2020-06-28] MEDS: *HR* OxyCODONE Immed Rel 5 MG TABLET PO PRN (02:23)
[2020-06-28] MEDS: Ipratropium 1 PUFF INHALER IH SCH ×4 (03:59→21:54)
[2020-06-28] MEDS: Pantoprazole 40 MG VIAL IVP SCH ×2 (06:02→16:57)
[2020-06-28] MEDS: amLODIPine 5 MG TABLET PO SCH (07:47)
[2020-06-28] MEDS: Cholecalciferol (D-3) 1,000 UNIT (25MCG) TABLET PO SCH (07:48)
[2020-06-28] MEDS: cloNIDine HCL 0.1 MG TABLET PO SCH ×2 (07:48→20:13)
[2020-06-28] MEDS: hydrALAZINE 25 MG TABLET PO SCH ×3 (07:48→20:12)
[2020-06-28] MEDS: carvediloL 25 MG TABLET PO SCH ×2 (07:48→16:57)
[2020-06-28] MEDS: Isosorbide MONOnitrate (24 HR) 60 MG TAB.ER.24H PO SCH (07:48)
[2020-06-28] MEDS: allopurinoL 100 MG TABLET PO SCH (07:48)
[2020-06-28] MEDS: Furosemide 40 MG/4 ML VIAL IVP SCH ×2 (07:48→16:57)
[2020-06-28] MEDS: Insulin LISPRO 300 UNITS/3 ML VIAL SQ SCH ×3 (07:49→16:56)
[2020-06-28] MEDS: Dexamethasone 4 MG/ML VIAL IVP SCH ×2 (07:49→20:12)
[2020-06-28] MEDS: Budesonide/Formoterol 160/4.5 1 PUFF INH IH SCH ×2 (10:20→21:54)
[2020-06-28 10:21] LABS: Eosinophils % 0.4 %; Hematocrit 25.3 % (35.3-44.9); Hemoglobin 8.1 g/dL (11.5-15.4); Immature Granulocytes % 3.3 % (0-4); Lymphocytes # 0.2 K/mcL (0.6-4.6); Mean Corpuscular Hemoglobin 32.5 pg (28.0-33.3); Mean Corpuscular Volume 101.6 fL (83.0-100.0); Mean Platelet Volume 13.4 fL (9.4-12.4); Monocytes # 0.2 K/mcL (0.0-1.3); Monocytes % 6.2 %; Neutrophils # 2.3 K/mcL (1.6-8.9); Red Blood Count 2.49 M/mcL (3.82-4.97); Segmented Neutrophils % 82.1 %
[2020-06-28 10:23] LABS: Platelet Count 59 K/mcL (140-400); White Blood Count 2.8 K/mcL (4.3-11.1)
[2020-06-28 10:43] LABS: Calcium 8.4 mg/dL (8.6-10.3); Magnesium 1.6 mg/dL (1.6-2.6); Potassium 3.6 mEq/L (3.5-5.1)
[2020-06-28] MEDS ORDERED: Artificial Tears SOLN 15 ML BOTTLE BOTH EYES PRN (20:57)
[2020-06-29] MEDS: *HR* HYDROcodone/Acet 5/325 mg TABLET PO PRN (03:44)
[2020-06-29] MEDS: Ipratropium 1 PUFF INHALER IH SCH ×4 (04:36→22:15)
[2020-06-29] MEDS: Pantoprazole 40 MG VIAL IVP SCH ×2 (05:03→15:57)
[2020-06-29 05:11] LABS: Hemoglobin 7.4 g/dL (11.5-15.4)
[2020-06-29 05:13] LABS: Calcium 8.4 mg/dL (8.6-10.3); Hematocrit 23.9 % (35.3-44.9); Immature Platelets 18.6 % (1.1-6.1); Magnesium 1.6 mg/dL (1.6-2.6); Mean Corpuscular Hemoglobin 32.7 pg (28.0-33.3); Mean Corpuscular Volume 105.8 fL (83.0-100.0); Mean Platelet Volume 14.1 fL (9.4-12.4); Phosphorous 3.2 mg/dL (2.7-4.5); Potassium 3.6 mEq/L (3.5-5.1); Red Blood Count 2.26 M/mcL (3.82-4.97); Red Cell Distribution Width 21.4 % (11.5-14.5); White Blood Count 2.3 K/mcL (4.3-11.1)
[2020-06-29] MEDS: levoFLOXacin 750 MG/150 ML 750 MG/150 ML BAG IVPB SCH (07:48)
[2020-06-29] MEDS: Furosemide 40 MG/4 ML VIAL IVP SCH (07:49)
[2020-06-29] MEDS: Dexamethasone 4 MG/ML VIAL IVP SCH (07:50)
[2020-06-29] MEDS: hydrALAZINE 25 MG TABLET PO SCH ×3 (07:52→20:33)
[2020-06-29] MEDS: carvediloL 25 MG TABLET PO SCH ×2 (07:52→15:34)
[2020-06-29] MEDS: amLODIPine 5 MG TABLET PO SCH (07:53)
[2020-06-29] MEDS: allopurinoL 100 MG TABLET PO SCH (07:53)
[2020-06-29] MEDS: Cholecalciferol (D-3) 1,000 UNIT (25MCG) TABLET PO SCH (07:53)
[2020-06-29] MEDS: cloNIDine HCL 0.1 MG TABLET PO SCH ×2 (07:54→20:33)
[2020-06-29] MEDS: Insulin LISPRO 300 UNITS/3 ML VIAL SQ SCH ×3 (08:06→16:37)
[2020-06-29] MEDS: Isosorbide MONOnitrate (24 HR) 60 MG TAB.ER.24H PO SCH (08:32)
[2020-06-29] MEDS: Budesonide/Formoterol 160/4.5 1 PUFF INH IH SCH ×2 (09:19→22:15)
[2020-06-29] MEDS ORDERED: 0.9 % Sodium Chloride 500 ML ONE (14:17)
[2020-06-30] MEDS: Ipratropium 1 PUFF INHALER IH SCH ×4 (04:18→21:36)
[2020-06-30] MEDS: Pantoprazole 40 MG VIAL IVP SCH ×2 (05:28→17:18)
[2020-06-30 06:00] LABS: Hematocrit 24.6 % (35.3-44.9); Hemoglobin 7.8 g/dL (11.5-15.4); Immature Platelets 17.7 % (1.1-6.1); Mean Corpuscular HGB Conc 31.7 g/dL (31.6-35.5); Mean Corpuscular Hemoglobin 32.6 pg (28.0-33.3); Mean Corpuscular Volume 102.9 fL (83.0-100.0); Red Blood Count 2.39 M/mcL (3.82-4.97); Red Cell Distribution Width 20.3 % (11.5-14.5)
[2020-06-30 06:01] LABS: Platelet Count 54 K/mcL (140-400)
[2020-06-30 06:20] LABS: Calcium 8.7 mg/dL (8.6-10.3); Magnesium 1.6 mg/dL (1.6-2.6); Phosphorous 2.9 mg/dL (2.7-4.5); Potassium 3.7 mEq/L (3.5-5.1)
[2020-06-30] MEDS: cloNIDine HCL 0.1 MG TABLET PO SCH ×2 (08:03→21:17)
[2020-06-30] MEDS: Cholecalciferol (D-3) 1,000 UNIT (25MCG) TABLET PO SCH (08:03)
[2020-06-30] MEDS: hydrALAZINE 25 MG TABLET PO SCH ×3 (08:03→21:17)
[2020-06-30] MEDS: Isosorbide MONOnitrate (24 HR) 60 MG TAB.ER.24H PO SCH (08:04)
[2020-06-30] MEDS: carvediloL 25 MG TABLET PO SCH ×2 (08:04→17:18)
[2020-06-30] MEDS: Furosemide 40 MG TABLET PO SCH (08:04)
[2020-06-30] MEDS: Dexamethasone 4 MG/ML VIAL IVP SCH (08:04)
[2020-06-30] MEDS: allopurinoL 100 MG TABLET PO SCH (08:04)
[2020-06-30] MEDS: amLODIPine 5 MG TABLET PO SCH (08:04)
[2020-06-30] MEDS: Insulin LISPRO 300 UNITS/3 ML VIAL SQ SCH ×3 (08:32→17:19)
[2020-06-30] MEDS: Budesonide/Formoterol 160/4.5 1 PUFF INH IH SCH ×2 (11:29→21:37)
[2020-06-30 21:59] LABS: Hematocrit 23.1 % (35.3-44.9); Hemoglobin 7.4 g/dL (11.5-15.4)
[2020-07-01] MEDS: Ipratropium 1 PUFF INHALER IH SCH ×4 (04:02→21:45)
[2020-07-01 05:54] LABS: Hemoglobin 7.3 g/dL (11.5-15.4)
[2020-07-01 05:55] LABS: Hematocrit 22.5 % (35.3-44.9)
[2020-07-01 06:19] LABS: Calcium 8.6 mg/dL (8.6-10.3); Potassium 3.8 mEq/L (3.5-5.1)
[2020-07-01] MEDS: hydrALAZINE 25 MG TABLET PO SCH ×3 (07:40→20:32)
[2020-07-01] MEDS: cloNIDine HCL 0.1 MG TABLET PO SCH ×2 (07:41→20:32)
[2020-07-01] MEDS: Cholecalciferol (D-3) 1,000 UNIT (25MCG) TABLET PO SCH (07:41)
[2020-07-01] MEDS: allopurinoL 100 MG TABLET PO SCH (07:41)
[2020-07-01] MEDS: amLODIPine 5 MG TABLET PO SCH (07:41)
[2020-07-01] MEDS: Furosemide 40 MG TABLET PO SCH (07:41)
[2020-07-01] MEDS: Dexamethasone 4 MG/ML VIAL IVP SCH (07:41)
[2020-07-01] MEDS: carvediloL 25 MG TABLET PO SCH ×2 (07:41→16:39)
[2020-07-01] MEDS: Isosorbide MONOnitrate (24 HR) 60 MG TAB.ER.24H PO SCH (07:41)
[2020-07-01] MEDS: Pantoprazole 40 MG VIAL IVP SCH ×2 (07:43→16:39)
[2020-07-01] MEDS: levoFLOXacin 750 MG/150 ML 750 MG/150 ML BAG IVPB SCH (07:43)
[2020-07-01] MEDS: Insulin LISPRO 300 UNITS/3 ML VIAL SQ SCH ×3 (08:14→16:40)
[2020-07-01] MEDS: Budesonide/Formoterol 160/4.5 1 PUFF INH IH SCH ×2 (10:44→21:46)
[2020-07-01] MEDS: Insulin DETEMIR 100 UNIT/ML X5UNITS SQ SCH (16:39)
[2020-07-02 02:34] LABS: Calcium 8.6 mg/dL (8.6-10.3); Potassium 4.3 mEq/L (3.5-5.1)
[2020-07-02 03:20] LABS: Hemoglobin 7.6 g/dL (11.5-15.4)
[2020-07-02 03:22] LABS: Hematocrit 23.2 % (35.3-44.9)
[2020-07-02] MEDS: Ipratropium 1 PUFF INHALER IH SCH ×4 (03:30→22:17)
[2020-07-02 06:08] LABS: Hematocrit 23.5 % (35.3-44.9); Hemoglobin 7.4 g/dL (11.5-15.4)
[2020-07-02] MEDS: Pantoprazole 40 MG VIAL IVP SCH (06:13)
[2020-07-02] MEDS: Cholecalciferol (D-3) 1,000 UNIT (25MCG) TABLET PO SCH (08:32)
[2020-07-02] MEDS: Furosemide 40 MG TABLET PO SCH (08:32)
[2020-07-02] MEDS: Isosorbide MONOnitrate (24 HR) 60 MG TAB.ER.24H PO SCH (08:33)
[2020-07-02] MEDS: cloNIDine HCL 0.1 MG TABLET PO SCH ×2 (08:33→20:59)
[2020-07-02] MEDS: hydrALAZINE 25 MG TABLET PO SCH ×3 (08:33→20:59)
[2020-07-02] MEDS: Dexamethasone 4 MG/ML VIAL IVP SCH (08:33)
[2020-07-02] MEDS: allopurinoL 100 MG TABLET PO SCH (08:33)
[2020-07-02] MEDS: carvediloL 25 MG TABLET PO SCH ×2 (08:33→17:02)
[2020-07-02] MEDS: amLODIPine 5 MG TABLET PO SCH (08:33)
[2020-07-02] MEDS: Insulin LISPRO 300 UNITS/3 ML VIAL SQ SCH ×3 (08:34→17:02)
[2020-07-02] MEDS: Insulin DETEMIR 100 UNIT/ML X5UNITS SQ SCH (08:36)
[2020-07-02] MEDS: Budesonide/Formoterol 160/4.5 1 PUFF INH IH SCH ×2 (11:40→22:17)
[2020-07-02] MEDS: polyethylene glycoL 3350 17 GM POWD.PACK PO SCH (12:12)
[2020-07-02] MEDS: *HR* HYDROcodone/Acet 5/325 mg TABLET PO PRN (20:59)
[2020-07-03] MEDS: Ipratropium 1 PUFF INHALER IH SCH ×4 (04:16→22:09)
[2020-07-03 06:09] LABS: Hematocrit 22.5 % (35.3-44.9); Hemoglobin 7.1 g/dL (11.5-15.4)
[2020-07-03 06:30] LABS: Calcium 8.8 mg/dL (8.6-10.3); Potassium 4.2 mEq/L (3.5-5.1)
[2020-07-03] MEDS: Insulin LISPRO 300 UNITS/3 ML VIAL SQ SCH ×4 (08:02→21:22)
[2020-07-03] MEDS: cloNIDine HCL 0.1 MG TABLET PO SCH ×2 (08:02→21:22)
[2020-07-03] MEDS: Cholecalciferol (D-3) 1,000 UNIT (25MCG) TABLET PO SCH (08:02)
[2020-07-03] MEDS: hydrALAZINE 25 MG TABLET PO SCH ×3 (08:03→21:22)
[2020-07-03] MEDS: carvediloL 25 MG TABLET PO SCH ×2 (08:03→17:09)
[2020-07-03] MEDS: allopurinoL 100 MG TABLET PO SCH (08:03)
[2020-07-03] MEDS: Furosemide 40 MG TABLET PO SCH (08:03)
[2020-07-03] MEDS: amLODIPine 5 MG TABLET PO SCH (08:04)
[2020-07-03] MEDS: Dexamethasone 4 MG/ML VIAL IVP SCH (08:04)
[2020-07-03] MEDS: Isosorbide MONOnitrate (24 HR) 60 MG TAB.ER.24H PO SCH (08:05)
[2020-07-03] MEDS: polyethylene glycoL 3350 17 GM POWD.PACK PO SCH (08:05)
[2020-07-03] MEDS: Insulin DETEMIR 100 UNIT/ML X5UNITS SQ SCH (08:08)
[2020-07-03] MEDS: Budesonide/Formoterol 160/4.5 1 PUFF INH IH SCH ×2 (11:17→22:09)
[2020-07-03 12:48] LABS: Hemoglobin 7.6 g/dL (11.5-15.4)
[2020-07-03] MEDS: *HR* HYDROcodone/Acet 5/325 mg TABLET PO PRN (15:19)
[2020-07-03] MEDS ORDERED: Insulin LISPRO 300 UNITS/3 ML VIAL SQ ONE ×2 (16:44→18:33)
[2020-07-03] MEDS ORDERED: Insulin DETEMIR 100 UNIT/ML X5UNITS SQ SCH (21:00)
[2020-07-03] MEDS ORDERED: *HR* Dextrose 50 % in Water (Vial) 50 ML VIAL IVP PRN (21:14)
[2020-07-03] MEDS ORDERED: D5% in Water 1,000 ML IVC PRN (21:14)
[2020-07-03] MEDS ORDERED: Dextrose Gel 15 GM/37.5 ML TUBE PO PRN ×2 (21:14)
[2020-07-04 01:58] LABS: Hematocrit 23.4 % (35.3-44.9); Hemoglobin 7.5 g/dL (11.5-15.4)
[2020-07-04 02:16] LABS: Calcium 8.6 mg/dL (8.6-10.3); Potassium 4.3 mEq/L (3.5-5.1)
[2020-07-04 03:45] LABS: Mean Corpuscular Volume 100.4 fL (83.0-100.0)
[2020-07-04 03:47] LABS: Hematocrit 24.7 % (35.3-44.9); Immature Platelets 15.5 % (1.1-6.1); Mean Corpuscular HGB Conc 32.4 g/dL (31.6-35.5); Mean Corpuscular Hemoglobin 32.5 pg (28.0-33.3); Mean Platelet Volume 13.5 fL (9.4-12.4); Red Blood Count 2.46 M/mcL (3.82-4.97); Red Cell Distribution Width 19.6 % (11.5-14.5); White Blood Count 3.7 K/mcL (4.3-11.1)
[2020-07-04 04:07] LABS: Calcium 8.8 mg/dL (8.6-10.3); Potassium 4.1 mEq/L (3.5-5.1)
[2020-07-04] MEDS: Ipratropium 1 PUFF INHALER IH SCH ×4 (04:54→21:48)
[2020-07-04] MEDS: carvediloL 25 MG TABLET PO SCH ×2 (07:50→16:14)
[2020-07-04] MEDS: Isosorbide MONOnitrate (24 HR) 60 MG TAB.ER.24H PO SCH (07:50)
[2020-07-04] MEDS: allopurinoL 100 MG TABLET PO SCH (07:50)
[2020-07-04] MEDS: Cholecalciferol (D-3) 1,000 UNIT (25MCG) TABLET PO SCH (07:50)
[2020-07-04] MEDS: cloNIDine HCL 0.1 MG TABLET PO SCH ×2 (07:50→22:03)
[2020-07-04] MEDS: Furosemide 40 MG TABLET PO SCH (07:51)
[2020-07-04] MEDS: amLODIPine 5 MG TABLET PO SCH (07:51)
[2020-07-04] MEDS: Insulin LISPRO 300 UNITS/3 ML VIAL SQ SCH ×5 (07:51→22:04)
[2020-07-04] MEDS: Dexamethasone 4 MG/ML VIAL IVP SCH (07:51)
[2020-07-04] MEDS: hydrALAZINE 25 MG TABLET PO SCH ×3 (07:51→22:03)
[2020-07-04] MEDS: polyethylene glycoL 3350 17 GM POWD.PACK PO SCH (08:18)
[2020-07-04] MEDS: Insulin DETEMIR 100 UNIT/ML X5UNITS SQ SCH ×2 (08:19→22:04)
[2020-07-04] MEDS: Budesonide/Formoterol 160/4.5 1 PUFF INH IH SCH ×2 (11:35→21:48)
[2020-07-04] MEDS ORDERED: Insulin DETEMIR 100 UNIT/ML X5UNITS SQ ONE (16:45)
[2020-07-04] MEDS ORDERED: Insulin LISPRO 300 UNITS/3 ML VIAL SQ ONE (16:47)
[2020-07-04] MEDS ORDERED: Insulin DETEMIR 100 UNIT/ML X5UNITS SQ SCH (21:00)
[2020-07-05] MEDS: Ipratropium 1 PUFF INHALER IH SCH ×4 (03:30→21:43)
[2020-07-05 04:45] LABS: Hematocrit 23.1 % (35.3-44.9); Hemoglobin 7.5 g/dL (11.5-15.4)
[2020-07-05 05:04] LABS: BUN/Creatinine Ratio 44 (6-26); Blood Urea Nitrogen 80 mg/dL (8-23); C-Reactive Protein < 5 mg/L (Less than 10); Calcium 8.8 mg/dL (8.6-10.3); Carbon Dioxide 31 mEq/L (23-29); Chloride 99 mEq/L (98-107); Glucose 206 mg/dL (70-105); Lactate Dehydrogenase 228 Units/L (140-271); Osmolality,Calculated 314 (280-300); Potassium 4.4 mEq/L (3.5-5.1); Sodium 137 mEq/L (136-145); eGFR For African Americans 32 (> 60); eGFR For Non-African Americans 27 (> 60)
[2020-07-05 05:21] LABS: Ferritin 232 ng/mL (10-120)
[2020-07-05] MEDS: Insulin LISPRO 300 UNITS/3 ML VIAL SQ SCH ×4 (07:35→20:41)
[2020-07-05] MEDS: Insulin DETEMIR 100 UNIT/ML X5UNITS SQ SCH ×2 (07:36→20:42)
[2020-07-05] MEDS: amLODIPine 5 MG TABLET PO SCH (07:45)
[2020-07-05] MEDS: Cholecalciferol (D-3) 1,000 UNIT (25MCG) TABLET PO SCH (07:45)
[2020-07-05] MEDS: allopurinoL 100 MG TABLET PO SCH (07:45)
[2020-07-05] MEDS: polyethylene glycoL 3350 17 GM POWD.PACK PO SCH (07:45)
[2020-07-05] MEDS: hydrALAZINE 25 MG TABLET PO SCH ×3 (07:45→20:41)
[2020-07-05] MEDS: carvediloL 25 MG TABLET PO SCH ×2 (07:45→16:29)
[2020-07-05] MEDS: Isosorbide MONOnitrate (24 HR) 60 MG TAB.ER.24H PO SCH (07:46)
[2020-07-05] MEDS: Furosemide 40 MG TABLET PO SCH (07:46)
[2020-07-05] MEDS: Dexamethasone 4 MG/ML VIAL IVP SCH (07:46)
[2020-07-05] MEDS: cloNIDine HCL 0.1 MG TABLET PO SCH ×2 (07:46→20:41)
[2020-07-05] MEDS: Budesonide/Formoterol 160/4.5 1 PUFF INH IH SCH ×2 (09:45→21:43)
[2020-07-05] MEDS ORDERED: Melatonin 3 MG TABLET PO ONE (20:02)
[2020-07-05] MEDS: *HR* OxyCODONE Immed Rel 5 MG TABLET PO PRN (23:08)
[2020-07-06] MEDS: Ipratropium 1 PUFF INHALER IH SCH ×4 (04:53→22:36)
[2020-07-06] MEDS: Furosemide 40 MG TABLET PO SCH (07:20)
[2020-07-06] MEDS: Dexamethasone 4 MG/ML VIAL IVP SCH (07:20)
[2020-07-06] MEDS: allopurinoL 100 MG TABLET PO SCH (07:21)
[2020-07-06] MEDS: polyethylene glycoL 3350 17 GM POWD.PACK PO SCH (07:21)
[2020-07-06] MEDS: Isosorbide MONOnitrate (24 HR) 60 MG TAB.ER.24H PO SCH (07:21)
[2020-07-06] MEDS: carvediloL 25 MG TABLET PO SCH ×2 (07:21→16:39)
[2020-07-06] MEDS: Insulin LISPRO 300 UNITS/3 ML VIAL SQ SCH ×4 (07:21→20:44)
[2020-07-06] MEDS: amLODIPine 5 MG TABLET PO SCH (07:21)
[2020-07-06] MEDS: cloNIDine HCL 0.1 MG TABLET PO SCH ×2 (07:21→20:32)
[2020-07-06] MEDS: hydrALAZINE 25 MG TABLET PO SCH ×3 (07:21→20:32)
[2020-07-06] MEDS: Cholecalciferol (D-3) 1,000 UNIT (25MCG) TABLET PO SCH (07:21)
[2020-07-06 07:40] LABS: Hemoglobin 8.1 g/dL (11.5-15.4)
[2020-07-06 07:42] LABS: Hematocrit 24.8 % (35.3-44.9)
[2020-07-06] MEDS: Insulin DETEMIR 100 UNIT/ML X5UNITS SQ SCH ×2 (08:35→20:33)
[2020-07-06] MEDS: Budesonide/Formoterol 160/4.5 1 PUFF INH IH SCH ×2 (10:49→22:36)
[2020-07-06 14:32] LABS: Adenovirus Not Detected (Not Detect); Bordetella Pertussis Not Detected (Not Detect); Chlamydophila pneumoniae Not Detected (Not Detect); Coronavirus 229E Not Detected (Not Detect); Coronavirus HKU1 Not Detected (Not Detect); Coronavirus NL63 Not Detected (Not Detect); Coronavirus OC43 Not Detected (Not Detect); Human Metapneumovirus Not Detected (Not Detect); Human Rhinovirus/Enterovirus Not Detected (Not Detect); Influenza A Subtype 2009 H1 Not Detected (Not Detect); Influenza B Not Detected (Not Detect); Mycoplasma pneumoniae Not Detected (Not Detect); Parainfluenza Virus 1 Not Detected (Not Detect); Parainfluenza Virus 2 Not Detected (Not Detect); Parainfluenza Virus 3 Not Detected (Not Detect); Parainfluenza Virus 4 Not Detected (Not Detect); Respiratory Syncytial Virus Not Detected (Not Detect)
[2020-07-06 14:39] LABS: SARS-CoV-2 DETECTED (Not Detect)
[2020-07-06] MEDS: *HR* OxyCODONE Immed Rel 5 MG TABLET PO PRN (20:45)
[2020-07-07] MEDS: Ipratropium 1 PUFF INHALER IH SCH ×4 (03:52→22:17)
[2020-07-07 06:17] LABS: Basophils % 0.5 %; Eosinophils % 0.9 %; Hematocrit 23.6 % (35.3-44.9); Hemoglobin 7.9 g/dL (11.5-15.4); Immature Granulocytes % 2.1 % (0-4); Immature Platelets 10.2 % (1.1-6.1); Lymphocytes # 0.4 K/mcL (0.6-4.6); Mean Corpuscular HGB Conc 33.5 g/dL (31.6-35.5); Mean Corpuscular Hemoglobin 33.9 pg (28.0-33.3); Mean Corpuscular Volume 101.3 fL (83.0-100.0); Mean Platelet Volume 13.9 fL (9.4-12.4); Monocytes # 0.4 K/mcL (0.0-1.3); Monocytes % 8.5 %; Neutrophils # 3.5 K/mcL (1.6-8.9); Platelet Count 65 K/mcL (140-400); Red Blood Count 2.33 M/mcL (3.82-4.97); Red Cell Distribution Width 19.9 % (11.5-14.5); White Blood Count 4.4 K/mcL (4.3-11.1)
[2020-07-07 06:32] LABS: Calcium 8.9 mg/dL (8.6-10.3); Potassium 4.4 mEq/L (3.5-5.1)
[2020-07-07] MEDS: Insulin LISPRO 300 UNITS/3 ML VIAL SQ SCH ×4 (08:21→20:29)
[2020-07-07] MEDS: Isosorbide MONOnitrate (24 HR) 60 MG TAB.ER.24H PO SCH (08:27)
[2020-07-07] MEDS: amLODIPine 5 MG TABLET PO SCH (08:27)
[2020-07-07] MEDS: allopurinoL 100 MG TABLET PO SCH (08:28)
[2020-07-07] MEDS: hydrALAZINE 25 MG TABLET PO SCH ×3 (08:28→20:16)
[2020-07-07] MEDS: carvediloL 25 MG TABLET PO SCH ×2 (08:28→15:52)
[2020-07-07] MEDS: Dexamethasone 4 MG/ML VIAL IVP SCH (08:28)
[2020-07-07] MEDS: cloNIDine HCL 0.1 MG TABLET PO SCH ×2 (08:28→20:17)
[2020-07-07] MEDS: Cholecalciferol (D-3) 1,000 UNIT (25MCG) TABLET PO SCH (08:28)
[2020-07-07] MEDS: polyethylene glycoL 3350 17 GM POWD.PACK PO SCH ×2 (08:29→08:54)
[2020-07-07] MEDS: Insulin DETEMIR 100 UNIT/ML X5UNITS SQ SCH ×2 (08:52→20:17)
[2020-07-07] MEDS: Budesonide/Formoterol 160/4.5 1 PUFF INH IH SCH ×2 (10:30→22:18)
[2020-07-07] MEDS: Furosemide 40 MG TABLET PO SCH (11:57)
[2020-07-07] MEDS ORDERED: Calamine/Zinc oxide Lotion 120 ML BOTTLE TP PRN (23:05)
[2020-07-08] MEDS: Ipratropium 1 PUFF INHALER IH SCH ×2 (03:51→11:08)
[2020-07-08] MEDS: allopurinoL 100 MG TABLET PO SCH (07:52)
[2020-07-08] MEDS: carvediloL 25 MG TABLET PO SCH (07:52)
[2020-07-08] MEDS: Isosorbide MONOnitrate (24 HR) 60 MG TAB.ER.24H PO SCH (07:52)
[2020-07-08] MEDS: cloNIDine HCL 0.1 MG TABLET PO SCH (07:52)
[2020-07-08] MEDS: amLODIPine 5 MG TABLET PO SCH (07:53)
[2020-07-08] MEDS: Cholecalciferol (D-3) 1,000 UNIT (25MCG) TABLET PO SCH (07:53)
[2020-07-08] MEDS: hydrALAZINE 25 MG TABLET PO SCH (07:53)
[2020-07-08] MEDS: Furosemide 40 MG TABLET PO SCH (07:53)
[2020-07-08] MEDS: Dexamethasone 4 MG/ML VIAL IVP SCH (07:54)
[2020-07-08] MEDS: polyethylene glycoL 3350 17 GM POWD.PACK PO SCH (07:54)
[2020-07-08] MEDS: Insulin LISPRO 300 UNITS/3 ML VIAL SQ SCH ×2 (07:55→11:36)
[2020-07-08] MEDS: Insulin DETEMIR 100 UNIT/ML X5UNITS SQ SCH (08:05)
[2020-07-08 08:55] VITALS: BP 154/46
[2020-07-08] MEDS: Budesonide/Formoterol 160/4.5 1 PUFF INH IH SCH (11:08)
== END 2020-07-08 14:47 | DRG 177 ==
LOC: 2NENU → SUATTDRO 12:26 → 2NENU 07-04 09:09
PROVIDERS: ADMIT Internal Medicine; ATTEND Internal Medicine

== ENCOUNTER 2020-07-16 00:09 | Inpatient (IN) ==
[2020-07-16 00:48] LABS: Red Cell Distribution Width 20.2 % (11.5-14.5)
[2020-07-16 00:50] LABS: Hematocrit 21.4 % (35.3-44.9); Hemoglobin 6.8 g/dL (11.5-15.4); Immature Platelets 9.4 % (1.1-6.1); Mean Corpuscular HGB Conc 31.8 g/dL (31.6-35.5); Mean Corpuscular Hemoglobin 33.7 pg (28.0-33.3); Mean Corpuscular Volume 105.9 fL (83.0-100.0); Mean Platelet Volume 12.2 fL (9.4-12.4); Red Blood Count 2.02 M/mcL (3.82-4.97); White Blood Count 4.8 K/mcL (4.3-11.1)
[2020-07-16 00:51] LABS: Platelet Count 85 K/mcL (140-400)
[2020-07-16 00:55] LABS: INR 1.2; Prothrombin Time 14.1 Seconds (9.4-12.1)
[2020-07-16 00:58] LABS: Activated Partial Thrombo Time 29.3 Seconds (26.0-36.0)
[2020-07-16 01:05] LABS: Albumin 2.7 g/dL (3.5-5.7); Albumin/Globulin Ratio 0.9 (1.1-2.2); Calcium 8.2 mg/dL (8.6-10.3); Potassium 4.1 mEq/L (3.5-5.1); Total Protein 5.7 g/dL (6.4-8.9)
[2020-07-16 01:10] LABS: Alanine Aminotransferase 7 Units/L (7-52); Albumin 2.8 g/dL (3.5-5.7); Albumin/Globulin Ratio 0.9 (1.1-2.2); Alkaline Phosphatase 63 Units/L (34-104); Aspartate Amino Transferase 12 Units/L (13-39); Bilirubin,Direct 0.4 mg/dL (0.0-0.2); Bilirubin,Indirect 0.6 mg/dL (0.0-1.0); Ethanol < 10 mg/dL (Less than 10); Globulin 3.2 g/dL (2.4-3.5); Troponin I < 0.03 ng/mL (< 0.04)
[2020-07-16 01:19] LABS: Anisocytosis 2+ (Not Present); Eosinophils # 0.2 K/mcL (0.0-0.6); Large Platelets Present (Not Present); Lymphocytes # 0.7 K/mcL (0.6-4.6); Macrocytosis Present (Not Present); Monocytes # 0.5 K/mcL (0.0-1.3); Neutrophils # 3.5 K/mcL (1.6-8.9); Platelet Estimate Slight Decrease (Normal)
[2020-07-16] MEDS ORDERED: Furosemide 20 MG/2 ML VIAL IVP ONE (01:26)
[2020-07-16 02:14] LABS: Adenovirus Not Detected (Not Detect); Coronavirus 229E Not Detected (Not Detect); Coronavirus HKU1 Not Detected (Not Detect); Coronavirus NL63 Not Detected (Not Detect); Coronavirus OC43 Not Detected (Not Detect)
[2020-07-16 02:17] LABS: Bordetella Pertussis Not Detected (Not Detect); Chlamydophila pneumoniae Not Detected (Not Detect); Human Metapneumovirus Not Detected (Not Detect); Human Rhinovirus/Enterovirus Not Detected (Not Detect); Influenza A Subtype 2009 H1 Not Detected (Not Detect); Influenza B Not Detected (Not Detect); Mycoplasma pneumoniae Not Detected (Not Detect); Parainfluenza Virus 1 Not Detected (Not Detect); Parainfluenza Virus 2 Not Detected (Not Detect); Parainfluenza Virus 3 Not Detected (Not Detect); Parainfluenza Virus 4 Not Detected (Not Detect); Respiratory Syncytial Virus Not Detected (Not Detect); SARS-CoV-2 DETECTED (Not Detect)
[2020-07-16 02:30] LABS: Bacteria,Urine Few per hpf (None-Few); Bilirubin,Urine Negative (Negative); Blood,Urine Negative (Negative); Budding Yeast,Urine Few per hpf (None Seen); Clarity,Urine Clear (Clear); Color,Urine Yellow (Yellow); Glucose,Urine (UA) Normal (Normal); Hyaline Casts,Urine Moderate per lpf (None Seen); Ketones,Urine Negative (Negative); Leukocyte Esterase,Urine Small (Negative); Nitrite,Urine Negative (Negative); PH,Urine 5.5 pH Units (5.0-8.0); Protein,Urine Negative (Neg-Trace); RBC,Urine 0-3 per hpf (0-3); Specific Gravity,Urine 1.016 (1.010-1.025); Squamous Epithelial Cell,Urine Few per hpf (None-Few); Urobilinogen,Urine Normal (Normal); WBC,Urine 0-3 per hpf (0-3)
[2020-07-16 02:49] LABS: Amphetamine Screen,Urine Negative ng/mL (Cutoff=1000); Barbiturate Screen,Urine Negative ng/mL (Cutoff=200); Benzodiazepines Screen,Urine Negative ng/mL (Cutoff=200); Cannabinoid Screen,Urine Negative ng/mL (Cutoff = 50); Cocaine Screen,Urine Negative ng/mL (Cutoff= 300); Opiate Screen,Urine Positive ng/mL (Cutoff=300); Phencyclidine Screen,Urine Negative ng/mL (Cutoff=25)
[2020-07-16] MEDS ORDERED: 0.9 % Sodium Chloride 250 ML ONE (04:01)
[2020-07-16] MEDS ORDERED: Ondansetron 4 MG/2 ML VIAL IVP PRN (07:21)
[2020-07-16] MEDS ORDERED: Naloxone 0.4 MG/ML INJ IVP PRN (07:21)
[2020-07-16] MEDS: Pantoprazole 40 MG VIAL IVP SCH ×2 (10:32→18:33)
[2020-07-16 11:43] LABS: Hematocrit 22.8 % (35.3-44.9); Hemoglobin 7.5 g/dL (11.5-15.4)
[2020-07-16 12:12] LABS: % Iron Saturation 39 % (15-50); Iron 65 mcg/dL (50-170); Transferrin 119 mg/dL (203-362)
[2020-07-16] MEDS: Insulin LISPRO 300 UNITS/3 ML VIAL SQ SCH (16:18)
[2020-07-16 20:46] LABS: Hematocrit 23.8 % (35.3-44.9); Hemoglobin 7.7 g/dL (11.5-15.4)
[2020-07-17 05:31] LABS: Eosinophils % 6.6 %; Hemoglobin 7.4 g/dL (11.5-15.4); Mean Platelet Volume 12.8 fL (9.4-12.4)
[2020-07-17 05:33] LABS: Basophils % 0.5 %; Eosinophils # 0.3 K/mcL (0.0-0.6); Hematocrit 23.8 % (35.3-44.9); Immature Granulocytes % 1.9 % (0-4); Lymphocytes # 0.6 K/mcL (0.6-4.6); Lymphocytes % 16.5 %; Mean Corpuscular HGB Conc 31.1 g/dL (31.6-35.5); Mean Corpuscular Hemoglobin 32.2 pg (28.0-33.3); Mean Corpuscular Volume 103.5 fL (83.0-100.0); Monocytes # 0.2 K/mcL (0.0-1.3); Monocytes % 5.3 %; Neutrophils # 2.6 K/mcL (1.6-8.9); Red Cell Distribution Width 20.9 % (11.5-14.5); Segmented Neutrophils % 69.2 %; White Blood Count 3.8 K/mcL (4.3-11.1)
[2020-07-17] MEDS: Pantoprazole 40 MG VIAL IVP SCH ×2 (05:42→17:20)
[2020-07-17 05:44] LABS: Calcium 8.2 mg/dL (8.6-10.3); Magnesium 2.2 mg/dL (1.6-2.6); Potassium 3.8 mEq/L (3.5-5.1)
[2020-07-17 05:56] LABS: Platelet Count 80 K/mcL (140-400)
[2020-07-17] MEDS: Insulin LISPRO 300 UNITS/3 ML VIAL SQ SCH ×3 (08:37→17:23)
[2020-07-17] MEDS ORDERED: 0.9 % Sodium Chloride 500 ML ONE (13:43)
[2020-07-17] MEDS: carvediloL 25 MG TABLET PO SCH (17:20)
[2020-07-17] MEDS: Budesonide/Formoterol 80/4.5 1 PUFF INH IH SCH (20:10)
[2020-07-17] MEDS: Furosemide 40 MG TABLET PO SCH (20:20)
[2020-07-17] MEDS: Sennosides 8.6 MG TABLET PO SCH (20:20)
[2020-07-17] MEDS: Melatonin 3 MG TABLET PO SCH (20:20)
[2020-07-17] MEDS: cloNIDine HCL 0.1 MG TABLET PO SCH (20:20)
[2020-07-18] MEDS: Pantoprazole 40 MG VIAL IVP SCH ×2 (04:28→16:53)
[2020-07-18] MEDS: allopurinoL 100 MG TABLET PO SCH (08:09)
[2020-07-18] MEDS: Sennosides 8.6 MG TABLET PO SCH ×2 (08:09→19:13)
[2020-07-18] MEDS: amLODIPine 5 MG TABLET PO SCH (08:09)
[2020-07-18] MEDS: cloNIDine HCL 0.1 MG TABLET PO SCH ×2 (08:09→19:13)
[2020-07-18] MEDS: carvediloL 25 MG TABLET PO SCH ×2 (08:09→16:53)
[2020-07-18] MEDS: Furosemide 40 MG TABLET PO SCH ×2 (08:09→19:13)
[2020-07-18] MEDS: Isosorbide MONOnitrate (24 HR) 60 MG TAB.ER.24H PO SCH (08:09)
[2020-07-18] MEDS: Insulin LISPRO 300 UNITS/3 ML VIAL SQ SCH ×3 (08:10→16:54)
[2020-07-18] MEDS: Budesonide/Formoterol 80/4.5 1 PUFF INH IH SCH ×2 (08:30→21:30)
[2020-07-18 10:22] LABS: Basophils % 0.4 %; Hemoglobin 8.7 g/dL (11.5-15.4); Mean Corpuscular Volume 100.4 fL (83.0-100.0)
[2020-07-18 10:24] LABS: Eosinophils # 0.2 K/mcL (0.0-0.6); Eosinophils % 7.1 %; Hematocrit 26.2 % (35.3-44.9); Immature Granulocytes % 1.5 % (0-4); Immature Platelets 6.1 % (1.1-6.1); Lymphocytes # 0.6 K/mcL (0.6-4.6); Lymphocytes % 20.4 %; Mean Corpuscular HGB Conc 33.2 g/dL (31.6-35.5); Mean Corpuscular Hemoglobin 33.3 pg (28.0-33.3); Mean Platelet Volume 12.3 fL (9.4-12.4); Monocytes # 0.2 K/mcL (0.0-1.3); Monocytes % 7.4 %; Neutrophils # 1.7 K/mcL (1.6-8.9); Red Blood Count 2.61 M/mcL (3.82-4.97); Segmented Neutrophils % 63.2 %; White Blood Count 2.7 K/mcL (4.3-11.1)
[2020-07-18 10:43] LABS: Calcium 8.3 mg/dL (8.6-10.3); Magnesium 1.7 mg/dL (1.6-2.6); Potassium 3.6 mEq/L (3.5-5.1)
[2020-07-18 10:47] LABS: Platelet Count 84 K/mcL (140-400)
[2020-07-18 10:49] LABS: Anisocytosis 2+ (Not Present); Platelet Estimate Slight Decrease (Normal); Poikilocytosis 1+ (Not Present)
[2020-07-18] MEDS: Melatonin 3 MG TABLET PO SCH (19:30)
[2020-07-19] MEDS: Pantoprazole 40 MG VIAL IVP SCH (04:58)
[2020-07-19 07:19] LABS: Basophils % 0.4 %; Red Cell Distribution Width 19.9 % (11.5-14.5)
[2020-07-19 07:22] LABS: Eosinophils # 0.1 K/mcL (0.0-0.6); Eosinophils % 5.8 %; Hemoglobin 8.5 g/dL (11.5-15.4); Immature Granulocytes % 1.2 % (0-4); Immature Platelets 7.6 % (1.1-6.1); Lymphocytes # 0.7 K/mcL (0.6-4.6); Lymphocytes % 28.6 %; Mean Corpuscular HGB Conc 32.7 g/dL (31.6-35.5); Mean Corpuscular Hemoglobin 32.4 pg (28.0-33.3); Mean Corpuscular Volume 99.2 fL (83.0-100.0); Mean Platelet Volume 12.8 fL (9.4-12.4); Monocytes # 0.2 K/mcL (0.0-1.3); Monocytes % 7.9 %; Neutrophils # 1.4 K/mcL (1.6-8.9); Red Blood Count 2.62 M/mcL (3.82-4.97); Segmented Neutrophils % 56.1 %; White Blood Count 2.4 K/mcL (4.3-11.1)
[2020-07-19 07:26] LABS: Platelet Count 79 K/mcL (140-400)
[2020-07-19] MEDS: Furosemide 40 MG TABLET PO SCH (08:03)
[2020-07-19] MEDS: Isosorbide MONOnitrate (24 HR) 60 MG TAB.ER.24H PO SCH (08:03)
[2020-07-19] MEDS: Sennosides 8.6 MG TABLET PO SCH (08:03)
[2020-07-19] MEDS: allopurinoL 100 MG TABLET PO SCH (08:03)
[2020-07-19] MEDS: amLODIPine 5 MG TABLET PO SCH (08:03)
[2020-07-19] MEDS: cloNIDine HCL 0.1 MG TABLET PO SCH (08:03)
[2020-07-19] MEDS: carvediloL 25 MG TABLET PO SCH (08:03)
[2020-07-19] MEDS: Insulin LISPRO 300 UNITS/3 ML VIAL SQ SCH ×2 (08:09→12:28)
[2020-07-19 08:34] LABS: Calcium 8.8 mg/dL (8.6-10.3); Magnesium 1.7 mg/dL (1.6-2.6); Phosphorous 2.7 mg/dL (2.7-4.5); Potassium 3.9 mEq/L (3.5-5.1)
[2020-07-19] MEDS: Budesonide/Formoterol 80/4.5 1 PUFF INH IH SCH (10:50)
[2020-07-19 13:01] VITALS: BP 136/66
== END 2020-07-19 13:19 | disposition home or self-care (01) | DRG 811 ==
LOC: 2NENU 00:09 → EMEROOARM 00:09 → 2NENU 04:45
PROVIDERS: ADMIT Internal Medicine; ATTEND Internal Medicine

== ENCOUNTER 2020-10-23 02:39 | Inpatient (IN) ==
[2020-10-23] MEDS ORDERED: Naloxone 0.4 MG/ML INJ IVP PRN (03:40)
[2020-10-23] MEDS ORDERED: Nitroglycerin 0.4 MG TAB.SUBL SL PRN (04:03)
[2020-10-23] MEDS ORDERED: Dextrose Gel 15 GM/37.5 ML TUBE PO PRN ×2 (04:04)
[2020-10-23] MEDS ORDERED: *HR* Dextrose 50 % in Water (Vial) 50 ML VIAL IVP PRN (04:04)
[2020-10-23] MEDS ORDERED: D5% in Water 1,000 ML IVC PRN (04:04)
[2020-10-23] MEDS: Ondansetron 4 MG/2 ML VIAL IVP PRN (05:57)
[2020-10-23] MEDS ORDERED: Insulin LISPRO 300 UNITS/3 ML VIAL SUBQ SCH (06:00)
[2020-10-23] MEDS ORDERED: Furosemide 20 MG/2 ML VIAL IVP ONE (08:02)
[2020-10-23 08:30] LABS: Hematocrit 28.4 % (35.3-44.9); Hemoglobin 8.7 g/dL (11.5-15.4); Immature Platelets 12.6 % (1.1-6.1); Mean Corpuscular HGB Conc 30.6 g/dL (31.6-35.5); Mean Corpuscular Hemoglobin 33.9 pg (28.0-33.3); Mean Corpuscular Volume 110.5 fL (83.0-100.0); Mean Platelet Volume 13.4 fL (9.4-12.4); Red Blood Count 2.57 M/mcL (3.82-4.97); Red Cell Distribution Width 23.9 % (11.5-14.5); White Blood Count 8.6 K/mcL (4.3-11.1)
[2020-10-23 08:42] LABS: Calcium 9.3 mg/dL (8.6-10.3); Potassium 3.7 mEq/L (3.5-5.1)
[2020-10-23] MEDS ORDERED: Perflutren Lipid Microsphere 1.3 ML in 0.9 % Sodium Chloride 8.7 ML IVP PRN ×2 (09:03→15:20)
[2020-10-23] MEDS: Insulin LISPRO 300 UNITS/3 ML VIAL SUBQ SCH ×4 (09:19→20:24)
[2020-10-23] MEDS ORDERED: Simethicone 80 MG TAB.CHEW PO ONE (09:44)
[2020-10-23] MEDS ORDERED: *HR* Heparin 5,000 UNIT/ML VIAL IVP ONE (15:51)
[2020-10-23] MEDS ORDERED: *HR* Heparin 5,000 UNIT/ML VIAL IVP PRN ×2 (15:51)
[2020-10-23] MEDS ORDERED: Heparin 25,000UNIT/250ML 1/2NS 25,000 UNIT/250 ML IV.SOLN IVC SCH (16:00)
[2020-10-23] MEDS: carvediloL 25 MG TABLET PO SCH (16:33)
[2020-10-23] MEDS: Aspirin 81 MG TAB.CHEW PO SCH (16:33)
[2020-10-23 16:50] LABS: Heparin anti-factor XA UFH < 0.04 IU/mL (0.30-0.70)
[2020-10-23 16:51] LABS: INR 1.1; Prothrombin Time 13.1 Seconds (9.4-12.1)
[2020-10-23 17:04] LABS: Hematocrit 25.8 % (35.3-44.9); Mean Corpuscular Hemoglobin 34.2 pg (28.0-33.3); Mean Corpuscular Volume 110.3 fL (83.0-100.0); Mean Platelet Volume 13.4 fL (9.4-12.4); Red Blood Count 2.34 M/mcL (3.82-4.97); Red Cell Distribution Width 24.1 % (11.5-14.5); White Blood Count 10.7 K/mcL (4.3-11.1)
[2020-10-23 17:05] LABS: Platelet Count 94 K/mcL (140-400)
[2020-10-23 20:07] LABS: Hemoglobin 7.5 g/dL (11.5-15.4); Red Cell Distribution Width 23.9 % (11.5-14.5)
[2020-10-23 20:09] LABS: Basophils % 0.3 %; Eosinophils # 0.1 K/mcL (0.0-0.6); Eosinophils % 1.3 %; Hematocrit 24.5 % (35.3-44.9); Immature Granulocytes % 5.9 % (0-4); Immature Platelets 12.5 % (1.1-6.1); Lymphocytes # 0.4 K/mcL (0.6-4.6); Lymphocytes % 5.3 %; Mean Corpuscular HGB Conc 30.6 g/dL (31.6-35.5); Mean Corpuscular Hemoglobin 33.5 pg (28.0-33.3); Mean Corpuscular Volume 109.4 fL (83.0-100.0); Mean Platelet Volume 13.5 fL (9.4-12.4); Monocytes # 0.3 K/mcL (0.0-1.3); Neutrophils # 5.6 K/mcL (1.6-8.9); Red Blood Count 2.24 M/mcL (3.82-4.97); Segmented Neutrophils % 82.2 %; White Blood Count 6.8 K/mcL (4.3-11.1)
[2020-10-23 20:37] LABS: Platelet Count 92 K/mcL (140-400)
[2020-10-23 20:38] LABS: Hypochromasia Present (Not Present); Platelet Estimate Slight Decrease (Normal)
[2020-10-23 20:39] LABS: Anisocytosis 3+ (Not Present)
[2020-10-24 02:30] LABS: Red Blood Count 2.28 M/mcL (3.82-4.97)
[2020-10-24 02:32] LABS: Hematocrit 25.1 % (35.3-44.9); Hemoglobin 7.8 g/dL (11.5-15.4); Immature Platelets 12.6 % (1.1-6.1); Mean Corpuscular HGB Conc 31.1 g/dL (31.6-35.5); Mean Corpuscular Hemoglobin 34.2 pg (28.0-33.3); Mean Corpuscular Volume 110.1 fL (83.0-100.0); Red Cell Distribution Width 23.7 % (11.5-14.5); White Blood Count 5.6 K/mcL (4.3-11.1)
[2020-10-24 02:34] LABS: Platelet Count 85 K/mcL (140-400)
[2020-10-24 02:51] LABS: Potassium 4.1 mEq/L (3.5-5.1)
[2020-10-24 02:59] LABS: Anisocytosis 3+ (Not Present); Hypochromasia Present (Not Present); Lymphocytes # 1.2 K/mcL (0.6-4.6); Monocytes # 0.5 K/mcL (0.0-1.3); Neutrophils # 3.9 K/mcL (1.6-8.9); Platelet Estimate Decreased (Normal)
[2020-10-24] MEDS: Ondansetron 4 MG/2 ML VIAL IVP PRN (04:44)
[2020-10-24] MEDS: Acetaminophen 325 MG TABLET PO PRN (06:31)
[2020-10-24] MEDS: Insulin LISPRO 300 UNITS/3 ML VIAL SUBQ SCH ×4 (07:52→20:35)
[2020-10-24] MEDS: carvediloL 25 MG TABLET PO SCH ×2 (08:16→16:44)
[2020-10-24] MEDS: Furosemide 20 MG/2 ML VIAL IVP SCH (08:17)
[2020-10-24] MEDS: Aspirin 81 MG TAB.CHEW PO SCH (08:17)
[2020-10-24] MEDS ORDERED: 0.9 % Sodium Chloride 2,000 ML ONE (13:10)
[2020-10-24] MEDS ORDERED: *HR* Heparin 10,000 UNIT/10 ML VIAL ONE (13:10)
[2020-10-24] MEDS ORDERED: Heparin 1,000 UNITS/500 mL 500 ML ONE (13:10)
[2020-10-24] MEDS ORDERED: ISOVUE-370 200 ML INFUS..BTL ONE ×2 (13:11→14:41)
[2020-10-24] MEDS ORDERED: Nitroglycerin 1,000 MCG/10 ML VIAL IV ONE (13:11)
[2020-10-24] MEDS ORDERED: *HR* Midazolam HCl 2 MG/2 ML VIAL ONE (13:51)
[2020-10-24] MEDS ORDERED: *HR* FentaNYL (PF) 100 MCG/2 ML VIAL ONE (13:51)
[2020-10-24] MEDS ORDERED: *HR* Bivalirudin 250 MG VIAL IVC ONE (14:16)
[2020-10-24] MEDS ORDERED: Furosemide 40 MG/4 ML VIAL ONE (14:50)
[2020-10-24 20:06] LABS: Hematocrit 23.6 % (35.3-44.9); Mean Corpuscular Volume 107.8 fL (83.0-100.0); Red Blood Count 2.19 M/mcL (3.82-4.97); Red Cell Distribution Width 23.3 % (11.5-14.5)
[2020-10-24 20:08] LABS: Basophils % 0.6 %; Eosinophils # 0.1 K/mcL (0.0-0.6); Eosinophils % 2.1 %; Hemoglobin 7.4 g/dL (11.5-15.4); Immature Granulocytes % 2.3 % (0-4); Immature Platelets 14.2 % (1.1-6.1); Lymphocytes # 0.8 K/mcL (0.6-4.6); Lymphocytes % 11.6 %; Mean Corpuscular HGB Conc 31.4 g/dL (31.6-35.5); Mean Corpuscular Hemoglobin 33.8 pg (28.0-33.3); Mean Platelet Volume 13.7 fL (9.4-12.4); Monocytes # 0.5 K/mcL (0.0-1.3); Monocytes % 7.7 %; Segmented Neutrophils % 75.7 %; White Blood Count 6.7 K/mcL (4.3-11.1)
[2020-10-24 20:46] LABS: Neutrophils # 5.1 K/mcL (1.6-8.9); Platelet Count 71 K/mcL (140-400)
[2020-10-24 20:48] LABS: Anisocytosis 3+ (Not Present); Hypochromasia Present (Not Present); Platelet Estimate Decreased (Normal)
[2020-10-25 06:49] LABS: Basophils % 0.4 %; Eosinophils # 0.1 K/mcL (0.0-0.6); Eosinophils % 2.5 %; Hematocrit 22.3 % (35.3-44.9); Hemoglobin 6.9 g/dL (11.5-15.4); Immature Granulocytes % 1.2 % (0-4); Immature Platelets 12.1 % (1.1-6.1); Lymphocytes # 0.8 K/mcL (0.6-4.6); Lymphocytes % 17.4 %; Mean Corpuscular HGB Conc 30.9 g/dL (31.6-35.5); Mean Corpuscular Hemoglobin 34.3 pg (28.0-33.3); Mean Corpuscular Volume 110.9 fL (83.0-100.0); Monocytes # 0.4 K/mcL (0.0-1.3); Monocytes % 8.3 %; Neutrophils # 3.4 K/mcL (1.6-8.9); Red Blood Count 2.01 M/mcL (3.82-4.97); Segmented Neutrophils % 70.2 %; White Blood Count 4.8 K/mcL (4.3-11.1)
[2020-10-25 06:51] LABS: Platelet Count 72 K/mcL (140-400)
[2020-10-25 07:04] LABS: Potassium 4.1 mEq/L (3.5-5.1)
[2020-10-25 07:05] LABS: % Iron Saturation 7 % (15-50); Iron 15 mcg/dL (50-170); Lactate Dehydrogenase 365 Units/L (140-271); Transferrin 158 mg/dL (203-362)
[2020-10-25 07:11] LABS: Anisocytosis 2+ (Not Present); Microcytosis Present (Not Present); Platelet Estimate Decreased (Normal)
[2020-10-25 07:23] LABS: Ferritin 234 ng/mL (10-120)
[2020-10-25 09:17] LABS: Folate 9.1 ng/mL (3.0-16.0)
[2020-10-25] MEDS: Furosemide 20 MG/2 ML VIAL IVP SCH (09:34)
[2020-10-25] MEDS: Insulin LISPRO 300 UNITS/3 ML VIAL SUBQ SCH ×4 (09:34→20:33)
[2020-10-25] MEDS: Folic Acid 1 MG TABLET PO SCH (09:34)
[2020-10-25] MEDS: Aspirin 81 MG TAB.CHEW PO SCH (09:34)
[2020-10-25] MEDS: Cyanocobalamin (B-12) 1,000 MCG TABLET PO SCH (09:34)
[2020-10-25] MEDS: Isosorbide MONOnitrate (24 HR) 60 MG TAB.ER.24H PO SCH (09:34)
[2020-10-25] MEDS: carvediloL 25 MG TABLET PO SCH ×2 (09:34→16:54)
[2020-10-25] MEDS: Ipratropium/Albuterol Neb 3 ML IH PRN (10:00)
[2020-10-25] MEDS ORDERED: Sennosides 8.6 MG TABLET PO PRN (12:05)
[2020-10-25] MEDS ORDERED: 0.9 % Sodium Chloride 250 ML ONE ×2 (13:12→22:51)
[2020-10-25 19:00] LABS: Hematocrit 25.2 % (35.3-44.9); Hemoglobin 7.9 g/dL (11.5-15.4)
[2020-10-25] MEDS: Acetaminophen 325 MG TABLET PO PRN (20:32)
[2020-10-26 06:07] LABS: Hemoglobin 8.3 g/dL (11.5-15.4); Lymphocytes % 13.4 %
[2020-10-26 06:09] LABS: Basophils % 0.1 %; Eosinophils # 0.1 K/mcL (0.0-0.6); Eosinophils % 1.4 %; Hematocrit 26.3 % (35.3-44.9); Immature Granulocytes % 5.5 % (0-4); Immature Platelets 15.5 % (1.1-6.1); Mean Corpuscular HGB Conc 31.6 g/dL (31.6-35.5); Mean Corpuscular Hemoglobin 32.2 pg (28.0-33.3); Mean Corpuscular Volume 101.9 fL (83.0-100.0); Monocytes # 0.4 K/mcL (0.0-1.3); Monocytes % 5.6 %; Neutrophils # 5.4 K/mcL (1.6-8.9); Red Blood Count 2.58 M/mcL (3.82-4.97); Red Cell Distribution Width 23.7 % (11.5-14.5); White Blood Count 7.3 K/mcL (4.3-11.1)
[2020-10-26 06:10] LABS: Platelet Count 62 K/mcL (140-400)
[2020-10-26 06:27] LABS: Calcium 8.9 mg/dL (8.6-10.3); Potassium 4.2 mEq/L (3.5-5.1)
[2020-10-26 06:29] LABS: Polychromasia 1+ (Not Present)
[2020-10-26 06:30] LABS: Anisocytosis 2+ (Not Present); Macrocytosis Present (Not Present); Platelet Estimate Decreased (Normal)
[2020-10-26] MEDS: Insulin LISPRO 300 UNITS/3 ML VIAL SUBQ SCH ×4 (09:59→21:15)
[2020-10-26] MEDS: allopurinoL 100 MG TABLET PO SCH (10:00)
[2020-10-26] MEDS: Cyanocobalamin (B-12) 1,000 MCG TABLET PO SCH (10:01)
[2020-10-26] MEDS: Isosorbide MONOnitrate (24 HR) 60 MG TAB.ER.24H PO SCH (10:02)
[2020-10-26] MEDS: Folic Acid 1 MG TABLET PO SCH (10:02)
[2020-10-26] MEDS: carvediloL 25 MG TABLET PO SCH ×2 (10:02→17:45)
[2020-10-26] MEDS: Aspirin 81 MG TAB.CHEW PO SCH (10:02)
[2020-10-26] MEDS: cefTRIAXone 1,000 MG in 0.9 % Sodium Chloride Mini Bag 100 ML IVPB SCH (10:03)
[2020-10-26] MEDS: Ipratropium/Albuterol Neb 3 ML IH PRN (12:48)
[2020-10-27] MEDS: Ipratropium/Albuterol Neb 3 ML IH PRN (03:41)
[2020-10-27 05:33] LABS: Basophils % 0.5 %; Eosinophils # 0.1 K/mcL (0.0-0.6); Eosinophils % 0.9 %; Hematocrit 25.4 % (35.3-44.9); Hemoglobin 7.9 g/dL (11.5-15.4); Immature Granulocytes % 1.4 % (0-4); Immature Platelets 17.9 % (1.1-6.1); Lymphocytes % 14.5 %; Mean Corpuscular HGB Conc 31.1 g/dL (31.6-35.5); Mean Corpuscular Hemoglobin 32.2 pg (28.0-33.3); Mean Corpuscular Volume 103.7 fL (83.0-100.0); Mean Platelet Volume 14.2 fL (9.4-12.4); Monocytes # 0.6 K/mcL (0.0-1.3); Monocytes % 8.3 %; Red Blood Count 2.45 M/mcL (3.82-4.97); Red Cell Distribution Width 23.3 % (11.5-14.5); Segmented Neutrophils % 74.4 %; White Blood Count 6.6 K/mcL (4.3-11.1)
[2020-10-27 05:35] LABS: Neutrophils # 4.9 K/mcL (1.6-8.9); Platelet Count 57 K/mcL (140-400)
[2020-10-27 05:36] LABS: Potassium 4.4 mEq/L (3.5-5.1)
[2020-10-27 05:59] LABS: Anisocytosis 1+ (Not Present); Polychromasia 1+ (Not Present)
[2020-10-27 06:00] LABS: Microcytosis Present (Not Present); Platelet Estimate Decreased (Normal)
[2020-10-27] MEDS: Aspirin 81 MG TAB.CHEW PO SCH (08:09)
[2020-10-27] MEDS: allopurinoL 100 MG TABLET PO SCH (08:10)
[2020-10-27] MEDS: Folic Acid 1 MG TABLET PO SCH (08:10)
[2020-10-27] MEDS: carvediloL 25 MG TABLET PO SCH ×2 (08:10→17:25)
[2020-10-27] MEDS: Cyanocobalamin (B-12) 1,000 MCG TABLET PO SCH (08:10)
[2020-10-27] MEDS: Isosorbide MONOnitrate (24 HR) 60 MG TAB.ER.24H PO SCH (08:10)
[2020-10-27] MEDS: Insulin LISPRO 300 UNITS/3 ML VIAL SUBQ SCH ×3 (08:10→17:25)
[2020-10-27] MEDS: cefTRIAXone 1,000 MG in 0.9 % Sodium Chloride Mini Bag 100 ML IVPB SCH (11:27)
[2020-10-27 13:13] LABS: Complement C3 123 mg/dL (87-200)
[2020-10-27 14:46] LABS: Sodium, Urine 11.5 mEq/L
[2020-10-28 02:24] LABS: Basophils % 0.4 %
[2020-10-28 02:26] LABS: Eosinophils # 0.1 K/mcL (0.0-0.6); Eosinophils % 1.5 %; Hemoglobin 7.7 g/dL (11.5-15.4); Immature Granulocytes % 1.7 % (0-4); Immature Platelets 17.5 % (1.1-6.1); Lymphocytes # 0.9 K/mcL (0.6-4.6); Lymphocytes % 16.2 %; Mean Corpuscular HGB Conc 30.8 g/dL (31.6-35.5); Mean Corpuscular Hemoglobin 32.2 pg (28.0-33.3); Mean Corpuscular Volume 104.6 fL (83.0-100.0); Monocytes # 0.5 K/mcL (0.0-1.3); Neutrophils # 3.8 K/mcL (1.6-8.9); Red Blood Count 2.39 M/mcL (3.82-4.97); Red Cell Distribution Width 22.9 % (11.5-14.5); Segmented Neutrophils % 71.2 %; White Blood Count 5.4 K/mcL (4.3-11.1)
[2020-10-28 02:32] LABS: Platelet Count 62 K/mcL (140-400)
[2020-10-28 02:43] LABS: Potassium 4.7 mEq/L (3.5-5.1)
[2020-10-28] MEDS: Insulin LISPRO 300 UNITS/3 ML VIAL SUBQ SCH ×5 (06:44→20:04)
[2020-10-28] MEDS: carvediloL 25 MG TABLET PO SCH ×2 (08:08→17:49)
[2020-10-28] MEDS ORDERED: 0.9 % Sodium Chloride 250 ML IVC PRN (10:21)
[2020-10-28] MEDS: Aspirin 81 MG TAB.CHEW PO SCH (10:42)
[2020-10-28] MEDS: cefTRIAXone 1,000 MG in 0.9 % Sodium Chloride Mini Bag 100 ML IVPB SCH (10:43)
[2020-10-28] MEDS: Folic Acid 1 MG TABLET PO SCH (10:43)
[2020-10-28] MEDS: allopurinoL 100 MG TABLET PO SCH (10:43)
[2020-10-28] MEDS: Isosorbide MONOnitrate (24 HR) 60 MG TAB.ER.24H PO SCH (10:45)
[2020-10-28] MEDS: Cyanocobalamin (B-12) 1,000 MCG TABLET PO SCH (10:46)
[2020-10-28 11:28] LABS: Hepatitis B Surface Antibody < 3.10 mIU/mL
[2020-10-28 11:39] LABS: Hepatitis B Surface Antigen Nonreactive (Nonreactive)
[2020-10-28] MEDS ORDERED: *HR* Heparin 5,000 UNIT/ML VIAL ONE (13:07)
[2020-10-28] MEDS ORDERED: *HR* Heparin 10,000 UNIT/10 ML VIAL IV PRN (13:54)
[2020-10-28] MEDS ORDERED: 0.9 % Sodium Chloride 1,000 ML PRIME SCH (14:00)
[2020-10-28] MEDS ORDERED: 0.9 % Sodium Chloride 250 ML ONE (17:28)
[2020-10-29] MEDS: Melatonin 3 MG TABLET PO PRN (01:10)
[2020-10-29 03:57] LABS: Basophils % 0.5 %; Eosinophils % 1.8 %; Immature Granulocytes % 1.6 % (0-4); Mean Corpuscular Volume 103.9 fL (83.0-100.0)
[2020-10-29 03:59] LABS: Eosinophils # 0.1 K/mcL (0.0-0.6); Hematocrit 23.7 % (35.3-44.9); Hemoglobin 7.4 g/dL (11.5-15.4); Immature Platelets 14.4 % (1.1-6.1); Lymphocytes # 0.7 K/mcL (0.6-4.6); Lymphocytes % 15.3 %; Mean Corpuscular HGB Conc 31.2 g/dL (31.6-35.5); Mean Corpuscular Hemoglobin 32.5 pg (28.0-33.3); Mean Platelet Volume 13.8 fL (9.4-12.4); Monocytes # 0.3 K/mcL (0.0-1.3); Monocytes % 7.2 %; Red Blood Count 2.28 M/mcL (3.82-4.97); Red Cell Distribution Width 22.2 % (11.5-14.5); Segmented Neutrophils % 73.6 %; White Blood Count 4.4 K/mcL (4.3-11.1)
[2020-10-29 04:01] LABS: Neutrophils # 3.2 K/mcL (1.6-8.9); Platelet Count 69 K/mcL (140-400)
[2020-10-29 04:13] LABS: Calcium 8.6 mg/dL (8.6-10.3); Potassium 3.8 mEq/L (3.5-5.1)
[2020-10-29] MEDS ORDERED: 0.9 % Sodium Chloride 250 ML IVC PRN (07:20)
[2020-10-29] MEDS ORDERED: *HR* Heparin 10,000 UNIT/10 ML VIAL IV PRN (07:20)
[2020-10-29] MEDS: Insulin LISPRO 300 UNITS/3 ML VIAL SUBQ SCH ×4 (07:48→20:18)
[2020-10-29 08:03] LABS: Mean Corpuscular Volume 104.8 fL (83.0-100.0)
[2020-10-29 08:05] LABS: Basophils % 0.5 %; Eosinophils # 0.1 K/mcL (0.0-0.6); Eosinophils % 2.2 %; Hematocrit 24.1 % (35.3-44.9); Hemoglobin 7.4 g/dL (11.5-15.4); Immature Granulocytes % 0.7 % (0-4); Immature Platelets 17.3 % (1.1-6.1); Lymphocytes # 0.8 K/mcL (0.6-4.6); Lymphocytes % 19.4 %; Mean Corpuscular HGB Conc 30.7 g/dL (31.6-35.5); Mean Corpuscular Hemoglobin 32.2 pg (28.0-33.3); Mean Platelet Volume 13.6 fL (9.4-12.4); Monocytes # 0.4 K/mcL (0.0-1.3); Monocytes % 8.8 %; Neutrophils # 2.8 K/mcL (1.6-8.9); Platelet Count 66 K/mcL (140-400); Red Cell Distribution Width 22.4 % (11.5-14.5); Segmented Neutrophils % 68.4 %; White Blood Count 4.1 K/mcL (4.3-11.1)
[2020-10-29] MEDS: carvediloL 25 MG TABLET PO SCH ×2 (10:00→17:15)
[2020-10-29] MEDS: Folic Acid 1 MG TABLET PO SCH (13:00)
[2020-10-29] MEDS: Aspirin 81 MG TAB.CHEW PO SCH (13:00)
[2020-10-29] MEDS: Isosorbide MONOnitrate (24 HR) 60 MG TAB.ER.24H PO SCH (13:00)
[2020-10-29] MEDS: allopurinoL 100 MG TABLET PO SCH (13:01)
[2020-10-29] MEDS ORDERED: 0.9 % Sodium Chloride 250 ML ONE (14:59)
[2020-10-29] MEDS: Cyanocobalamin (B-12) 1,000 MCG TABLET PO SCH (15:51)
[2020-10-29] MEDS ORDERED: polyethylene glycoL 3350 17 GM POWD.PACK PO PRN (16:12)
[2020-10-29] MEDS: cefTRIAXone 1,000 MG in 0.9 % Sodium Chloride Mini Bag 100 ML IVPB SCH (19:12)
[2020-10-30 00:38] LABS: Basophils % 0.6 %; Hemoglobin 8.5 g/dL (11.5-15.4); Immature Granulocytes % 0.3 % (0-4)
[2020-10-30 00:41] LABS: Eosinophils # 0.1 K/mcL (0.0-0.6); Eosinophils % 3.1 %; Hematocrit 27.7 % (35.3-44.9); Immature Platelets 16.9 % (1.1-6.1); Lymphocytes # 0.9 K/mcL (0.6-4.6); Lymphocytes % 24.7 %; Mean Corpuscular HGB Conc 30.7 g/dL (31.6-35.5); Mean Corpuscular Hemoglobin 31.3 pg (28.0-33.3); Mean Corpuscular Volume 101.8 fL (83.0-100.0); Mean Platelet Volume 12.5 fL (9.4-12.4); Monocytes # 0.3 K/mcL (0.0-1.3); Monocytes % 9.1 %; Neutrophils # 2.2 K/mcL (1.6-8.9); Platelet Count 70 K/mcL (140-400); Red Blood Count 2.72 M/mcL (3.82-4.97); Red Cell Distribution Width 21.1 % (11.5-14.5); Segmented Neutrophils % 62.2 %; White Blood Count 3.5 K/mcL (4.3-11.1)
[2020-10-30 00:59] LABS: Calcium 8.4 mg/dL (8.6-10.3); Potassium 3.9 mEq/L (3.5-5.1)
[2020-10-30] MEDS ORDERED: 0.9 % Sodium Chloride 250 ML IVC PRN (08:37)
[2020-10-30] MEDS ORDERED: *HR* Heparin 10,000 UNIT/10 ML VIAL IV PRN (08:37)
[2020-10-30] MEDS: Aspirin 81 MG TAB.CHEW PO SCH (08:40)
[2020-10-30] MEDS: Insulin LISPRO 300 UNITS/3 ML VIAL SUBQ SCH ×4 (08:40→21:03)
[2020-10-30] MEDS: allopurinoL 100 MG TABLET PO SCH (08:40)
[2020-10-30] MEDS: Folic Acid 1 MG TABLET PO SCH (08:40)
[2020-10-30] MEDS: carvediloL 25 MG TABLET PO SCH ×2 (08:41→17:34)
[2020-10-30] MEDS: Isosorbide MONOnitrate (24 HR) 60 MG TAB.ER.24H PO SCH (08:41)
[2020-10-30] MEDS: Cyanocobalamin (B-12) 1,000 MCG TABLET PO SCH (08:41)
[2020-10-30] MEDS: Acetaminophen 325 MG TABLET PO PRN (09:38)
[2020-10-31 03:59] LABS: Immature Granulocytes % 0.5 % (0-4); Red Blood Count 2.94 M/mcL (3.82-4.97)
[2020-10-31 04:01] LABS: Basophils % 0.8 %; Eosinophils # 0.1 K/mcL (0.0-0.6); Eosinophils % 2.7 %; Hematocrit 30.4 % (35.3-44.9); Hemoglobin 9.5 g/dL (11.5-15.4); Immature Platelets 12.2 % (1.1-6.1); Lymphocytes # 1.1 K/mcL (0.6-4.6); Lymphocytes % 30.3 %; Mean Corpuscular HGB Conc 31.3 g/dL (31.6-35.5); Mean Corpuscular Hemoglobin 32.3 pg (28.0-33.3); Mean Corpuscular Volume 103.4 fL (83.0-100.0); Mean Platelet Volume 13.3 fL (9.4-12.4); Monocytes # 0.4 K/mcL (0.0-1.3); Monocytes % 9.7 %; Neutrophils # 2.1 K/mcL (1.6-8.9); Red Cell Distribution Width 20.3 % (11.5-14.5); White Blood Count 3.7 K/mcL (4.3-11.1)
[2020-10-31 04:02] LABS: Platelet Count 98 K/mcL (140-400)
[2020-10-31 04:17] LABS: Calcium 8.7 mg/dL (8.6-10.3); Potassium 4.1 mEq/L (3.5-5.1)
[2020-10-31] MEDS: Insulin LISPRO 300 UNITS/3 ML VIAL SUBQ SCH ×5 (07:17→20:06)
[2020-10-31] MEDS: Cyanocobalamin (B-12) 1,000 MCG TABLET PO SCH (08:55)
[2020-10-31] MEDS: Aspirin 81 MG TAB.CHEW PO SCH (08:55)
[2020-10-31] MEDS: Folic Acid 1 MG TABLET PO SCH (08:55)
[2020-10-31] MEDS: allopurinoL 100 MG TABLET PO SCH (08:56)
[2020-10-31] MEDS: Isosorbide MONOnitrate (24 HR) 60 MG TAB.ER.24H PO SCH (08:56)
[2020-10-31] MEDS: carvediloL 25 MG TABLET PO SCH ×2 (10:41→18:06)
[2020-11-01 03:50] LABS: Basophils % 0.2 %; Eosinophils # 0.1 K/mcL (0.0-0.6); Hematocrit 29.9 % (35.3-44.9); Hemoglobin 9.4 g/dL (11.5-15.4); Immature Granulocytes % 1.8 % (0-4); Lymphocytes # 1.1 K/mcL (0.6-4.6); Mean Corpuscular HGB Conc 31.4 g/dL (31.6-35.5); Mean Corpuscular Hemoglobin 32.8 pg (28.0-33.3); Mean Corpuscular Volume 104.2 fL (83.0-100.0); Mean Platelet Volume 12.7 fL (9.4-12.4); Monocytes # 0.4 K/mcL (0.0-1.3); Monocytes % 9.4 %; Neutrophils # 2.7 K/mcL (1.6-8.9); Platelet Count 101 K/mcL (140-400); Red Blood Count 2.87 M/mcL (3.82-4.97); Red Cell Distribution Width 20.1 % (11.5-14.5); Segmented Neutrophils % 61.6 %; White Blood Count 4.4 K/mcL (4.3-11.1)
[2020-11-01 04:21] LABS: Calcium 8.9 mg/dL (8.6-10.3); Potassium 4.3 mEq/L (3.5-5.1)
[2020-11-01] MEDS: Insulin LISPRO 300 UNITS/3 ML VIAL SUBQ SCH ×4 (09:04→20:12)
[2020-11-01] MEDS: Cyanocobalamin (B-12) 1,000 MCG TABLET PO SCH (09:12)
[2020-11-01] MEDS: Aspirin 81 MG TAB.CHEW PO SCH (09:12)
[2020-11-01] MEDS: Folic Acid 1 MG TABLET PO SCH (09:12)
[2020-11-01] MEDS: Isosorbide MONOnitrate (24 HR) 60 MG TAB.ER.24H PO SCH (09:12)
[2020-11-01] MEDS: allopurinoL 100 MG TABLET PO SCH (09:13)
[2020-11-01] MEDS: Ondansetron 4 MG/2 ML VIAL IVP PRN (11:25)
[2020-11-01] MEDS: carvediloL 25 MG TABLET PO SCH ×2 (11:25→16:51)
[2020-11-02 04:04] LABS: Hematocrit 27.2 % (35.3-44.9); Hemoglobin 8.2 g/dL (11.5-15.4); Mean Corpuscular HGB Conc 30.1 g/dL (31.6-35.5); Mean Corpuscular Hemoglobin 31.3 pg (28.0-33.3); Mean Corpuscular Volume 103.8 fL (83.0-100.0); Mean Platelet Volume 12.7 fL (9.4-12.4); Platelet Count 100 K/mcL (140-400); Red Blood Count 2.62 M/mcL (3.82-4.97); Red Cell Distribution Width 20.1 % (11.5-14.5); White Blood Count 4.3 K/mcL (4.3-11.1)
[2020-11-02 04:18] LABS: Potassium 4.7 mEq/L (3.5-5.1)
[2020-11-02] MEDS: Insulin LISPRO 300 UNITS/3 ML VIAL SUBQ SCH ×4 (07:14→21:06)
[2020-11-02] MEDS: allopurinoL 100 MG TABLET PO SCH (08:46)
[2020-11-02] MEDS: Isosorbide MONOnitrate (24 HR) 60 MG TAB.ER.24H PO SCH (08:46)
[2020-11-02] MEDS: Aspirin 81 MG TAB.CHEW PO SCH (08:46)
[2020-11-02] MEDS: Cyanocobalamin (B-12) 1,000 MCG TABLET PO SCH (08:46)
[2020-11-02] MEDS: carvediloL 25 MG TABLET PO SCH ×2 (08:46→16:35)
[2020-11-02] MEDS: Folic Acid 1 MG TABLET PO SCH (08:46)
[2020-11-03 03:43] LABS: Mean Corpuscular Volume 103.9 fL (83.0-100.0)
[2020-11-03 03:45] LABS: Hematocrit 23.7 % (35.3-44.9); Hemoglobin 7.2 g/dL (11.5-15.4); Immature Platelets 8.8 % (1.1-6.1); Mean Corpuscular HGB Conc 30.4 g/dL (31.6-35.5); Mean Corpuscular Hemoglobin 31.6 pg (28.0-33.3); Mean Platelet Volume 12.8 fL (9.4-12.4); Red Blood Count 2.28 M/mcL (3.82-4.97); Red Cell Distribution Width 19.9 % (11.5-14.5); White Blood Count 3.1 K/mcL (4.3-11.1)
[2020-11-03 03:56] LABS: Calcium 9.4 mg/dL (8.6-10.3); Potassium 4.3 mEq/L (3.5-5.1)
[2020-11-03] MEDS: Aspirin 81 MG TAB.CHEW PO SCH (09:25)
[2020-11-03] MEDS: carvediloL 25 MG TABLET PO SCH ×2 (09:25→16:25)
[2020-11-03] MEDS: Folic Acid 1 MG TABLET PO SCH (09:25)
[2020-11-03] MEDS: allopurinoL 100 MG TABLET PO SCH (09:25)
[2020-11-03] MEDS: Isosorbide MONOnitrate (24 HR) 60 MG TAB.ER.24H PO SCH (09:25)
[2020-11-03] MEDS: Cyanocobalamin (B-12) 1,000 MCG TABLET PO SCH (09:25)
[2020-11-03] MEDS: Insulin LISPRO 300 UNITS/3 ML VIAL SUBQ SCH ×4 (09:26→20:11)
[2020-11-03] MEDS: Ondansetron 4 MG/2 ML VIAL IVP PRN (09:26)
[2020-11-03] MEDS ORDERED: 0.9 % Sodium Chloride 250 ML ONE (17:14)
[2020-11-03] MEDS: Melatonin 3 MG TABLET PO PRN (20:17)
[2020-11-04 03:41] LABS: Hemoglobin 7.5 g/dL (11.5-15.4)
[2020-11-04 03:43] LABS: Mean Corpuscular HGB Conc 31.3 g/dL (31.6-35.5); Mean Corpuscular Hemoglobin 31.9 pg (28.0-33.3); Mean Corpuscular Volume 102.1 fL (83.0-100.0); Mean Platelet Volume 12.5 fL (9.4-12.4); Red Blood Count 2.35 M/mcL (3.82-4.97); White Blood Count 3.1 K/mcL (4.3-11.1)
[2020-11-04 04:02] LABS: Calcium 9.4 mg/dL (8.6-10.3); Potassium 4.8 mEq/L (3.5-5.1)
[2020-11-04] MEDS: Insulin LISPRO 300 UNITS/3 ML VIAL SUBQ SCH ×4 (09:44→21:20)
[2020-11-04] MEDS: Isosorbide MONOnitrate (24 HR) 60 MG TAB.ER.24H PO SCH (09:45)
[2020-11-04] MEDS: Folic Acid 1 MG TABLET PO SCH (09:45)
[2020-11-04] MEDS: allopurinoL 100 MG TABLET PO SCH (09:45)
[2020-11-04] MEDS: Cyanocobalamin (B-12) 1,000 MCG TABLET PO SCH (09:45)
[2020-11-04] MEDS: carvediloL 25 MG TABLET PO SCH ×2 (09:45→17:04)
[2020-11-04] MEDS: Aspirin 81 MG TAB.CHEW PO SCH (09:45)
[2020-11-04] MEDS: Ondansetron 4 MG/2 ML VIAL IVP PRN (17:02)
[2020-11-04] MEDS: Melatonin 3 MG TABLET PO PRN (21:20)
[2020-11-05 04:54] LABS: Hemoglobin 7.3 g/dL (11.5-15.4)
[2020-11-05 04:56] LABS: Hematocrit 23.7 % (35.3-44.9); Immature Platelets 9.2 % (1.1-6.1); Mean Corpuscular HGB Conc 30.8 g/dL (31.6-35.5); Mean Corpuscular Hemoglobin 32.2 pg (28.0-33.3); Mean Corpuscular Volume 104.4 fL (83.0-100.0); Mean Platelet Volume 12.5 fL (9.4-12.4); Red Blood Count 2.27 M/mcL (3.82-4.97); Red Cell Distribution Width 19.7 % (11.5-14.5); White Blood Count 2.8 K/mcL (4.3-11.1)
[2020-11-05 05:05] LABS: Calcium 9.6 mg/dL (8.6-10.3); Potassium 4.6 mEq/L (3.5-5.1)
[2020-11-05] MEDS: Insulin LISPRO 300 UNITS/3 ML VIAL SUBQ SCH ×2 (07:16→11:46)
[2020-11-05] MEDS: allopurinoL 100 MG TABLET PO SCH (08:35)
[2020-11-05] MEDS: Isosorbide MONOnitrate (24 HR) 60 MG TAB.ER.24H PO SCH (08:35)
[2020-11-05] MEDS: Aspirin 81 MG TAB.CHEW PO SCH (08:35)
[2020-11-05] MEDS: carvediloL 25 MG TABLET PO SCH (08:35)
[2020-11-05] MEDS: Folic Acid 1 MG TABLET PO SCH (08:36)
[2020-11-05] MEDS: Cyanocobalamin (B-12) 1,000 MCG TABLET PO SCH (08:36)
[2020-11-05 10:57] VITALS: BP 117/62
== END 2020-11-05 14:40 | disposition home health service (06) | DRG 246 ==
LOC: 2ANU → SUATTDRO 02:39
PROVIDERS: ADMIT Internal Medicine; ATTEND Internal Medicine

== ENCOUNTER 2020-11-26 16:05 | Inpatient (IN) ==
[2020-11-26] MEDS ORDERED: Acetaminophen 325 MG TABLET PO PRN (18:52)
[2020-11-26] MEDS ORDERED: Ondansetron 4 MG/2 ML VIAL IVP PRN (18:52)
[2020-11-26] MEDS ORDERED: Naloxone 0.4 MG/ML INJ IVP PRN (18:52)
[2020-11-26] MEDS ORDERED: *HR* HYDROcodone/Acet 5/325 mg TABLET PO PRN (18:52)
[2020-11-26] MEDS ORDERED: Nitroglycerin 0.4 MG TAB.SUBL SL PRN (19:44)
[2020-11-26] MEDS ORDERED: Ipratropium/Albuterol Neb 3 ML IH PRN (19:45)
[2020-11-26] MEDS: Furosemide 40 MG/4 ML VIAL IVP SCH (20:20)
[2020-11-26 20:50] LABS: Hematocrit 24.8 % (35.3-44.9); Hemoglobin 7.7 g/dL (11.5-15.4)
[2020-11-26] MEDS ORDERED: Sennosides/Docusate Sodium TABLET PO PRN (22:32)
[2020-11-26] MEDS ORDERED: 0.9 % Sodium Chloride 250 ML ONE (23:13)
[2020-11-27 00:25] LABS: Basophils % 0.6 %
[2020-11-27 00:27] LABS: Eosinophils # 0.1 K/mcL (0.0-0.6); Eosinophils % 3.8 %; Hemoglobin 7.6 g/dL (11.5-15.4); Immature Granulocytes % 7.9 % (0-4); Immature Platelets 13.6 % (1.1-6.1); Lymphocytes # 1.1 K/mcL (0.6-4.6); Lymphocytes % 33.3 %; Mean Corpuscular HGB Conc 31.7 g/dL (31.6-35.5); Mean Corpuscular Hemoglobin 33.9 pg (28.0-33.3); Mean Corpuscular Volume 107.1 fL (83.0-100.0); Mean Platelet Volume 13.2 fL (9.4-12.4); Monocytes # 0.4 K/mcL (0.0-1.3); Monocytes % 10.5 %; Neutrophils # 1.5 K/mcL (1.6-8.9); Red Blood Count 2.24 M/mcL (3.82-4.97); Red Cell Distribution Width 24.8 % (11.5-14.5); Segmented Neutrophils % 43.9 %; White Blood Count 3.4 K/mcL (4.3-11.1)
[2020-11-27 00:29] LABS: Platelet Count 73 K/mcL (140-400)
[2020-11-27 00:56] LABS: Calcium 9.3 mg/dL (8.6-10.3); Magnesium 1.9 mg/dL (1.6-2.6); Phosphorous 3.5 mg/dL (2.7-4.5); Potassium 3.6 mEq/L (3.5-5.1)
[2020-11-27 00:59] LABS: Anisocytosis 3+ (Not Present); Platelet Estimate Decreased (Normal); Poikilocytosis 1+ (Not Present)
[2020-11-27 07:13] LABS: Hematocrit 28.3 % (35.3-44.9); Hemoglobin 9.1 g/dL (11.5-15.4)
[2020-11-27] MEDS: Budesonide/Formoterol 80/4.5 1 PUFF INH IH SCH ×2 (07:24→20:03)
[2020-11-27] MEDS: Multivit/Ca/Min/Fe/FA 1 TAB TABLET PO SCH (09:47)
[2020-11-27] MEDS: Folic Acid 1 MG TABLET PO SCH (09:47)
[2020-11-27] MEDS: Aspirin 81 MG TAB.CHEW PO SCH (09:47)
[2020-11-27] MEDS: Isosorbide MONOnitrate (24 HR) 60 MG TAB.ER.24H PO SCH (09:47)
[2020-11-27] MEDS: Loratadine 10 MG TABLET PO SCH (09:48)
[2020-11-27] MEDS: Cyanocobalamin (B-12) 1,000 MCG TABLET PO SCH (09:48)
[2020-11-27] MEDS: Fluticasone Propionate Nasal 50 MCG/SPRAY BOTTLE NS SCH (09:48)
[2020-11-27] MEDS: Furosemide 40 MG/4 ML VIAL IVP SCH (09:48)
[2020-11-27] MEDS: carvediloL 25 MG TABLET PO SCH ×2 (09:48→16:49)
[2020-11-27] MEDS: Melatonin 3 MG TABLET PO PRN (20:09)
[2020-11-28] MEDS: Budesonide/Formoterol 80/4.5 1 PUFF INH IH SCH ×2 (08:03→22:58)
[2020-11-28] MEDS: Cyanocobalamin (B-12) 1,000 MCG TABLET PO SCH (08:30)
[2020-11-28] MEDS: Folic Acid 1 MG TABLET PO SCH (08:30)
[2020-11-28] MEDS: Loratadine 10 MG TABLET PO SCH (08:30)
[2020-11-28] MEDS: Multivit/Ca/Min/Fe/FA 1 TAB TABLET PO SCH (08:30)
[2020-11-28] MEDS: Aspirin 81 MG TAB.CHEW PO SCH (08:31)
[2020-11-28] MEDS: carvediloL 25 MG TABLET PO SCH ×2 (08:31→16:21)
[2020-11-28] MEDS: Isosorbide MONOnitrate (24 HR) 60 MG TAB.ER.24H PO SCH (08:31)
[2020-11-28] MEDS: Fluticasone Propionate Nasal 50 MCG/SPRAY BOTTLE NS SCH (08:42)
[2020-11-28] MEDS: Furosemide 40 MG/4 ML VIAL IVP SCH (09:06)
[2020-11-28 10:30] LABS: Hematocrit 28.3 % (35.3-44.9); Hemoglobin 8.8 g/dL (11.5-15.4); Mean Corpuscular HGB Conc 31.1 g/dL (31.6-35.5); Mean Corpuscular Hemoglobin 33.6 pg (28.0-33.3); Mean Platelet Volume 13.7 fL (9.4-12.4); Platelet Count 76 K/mcL (140-400); Red Blood Count 2.62 M/mcL (3.82-4.97); Red Cell Distribution Width 23.9 % (11.5-14.5); White Blood Count 3.6 K/mcL (4.3-11.1)
[2020-11-28 11:11] LABS: Calcium 9.5 mg/dL (8.6-10.3); Magnesium 1.7 mg/dL (1.6-2.6); Potassium 4.1 mEq/L (3.5-5.1)
[2020-11-28] MEDS ORDERED: Sennosides 8.6 MG TABLET PO PRN (13:02)
[2020-11-28] MEDS ORDERED: *HR* Dextrose 50 % in Water (Vial) 50 ML VIAL IVP PRN (13:32)
[2020-11-28] MEDS ORDERED: Dextrose Gel 15 GM/37.5 ML TUBE PO PRN ×2 (13:32)
[2020-11-28] MEDS ORDERED: D5% in Water 1,000 ML IVC PRN (13:32)
[2020-11-28] MEDS: Furosemide 40 MG TABLET PO SCH (16:21)
[2020-11-28] MEDS: Insulin LISPRO 300 UNITS/3 ML VIAL SUBQ SCH ×2 (16:25→20:32)
[2020-11-28] MEDS: Melatonin 3 MG TABLET PO PRN (20:33)
[2020-11-29 03:15] LABS: Mean Corpuscular Volume 106.4 fL (83.0-100.0); Red Cell Distribution Width 22.9 % (11.5-14.5)
[2020-11-29 03:16] LABS: Hematocrit 28.4 % (35.3-44.9); Hemoglobin 8.9 g/dL (11.5-15.4); Immature Platelets 15.4 % (1.1-6.1); Mean Corpuscular HGB Conc 31.3 g/dL (31.6-35.5); Mean Corpuscular Hemoglobin 33.3 pg (28.0-33.3); Mean Platelet Volume 13.7 fL (9.4-12.4); Red Blood Count 2.67 M/mcL (3.82-4.97); White Blood Count 4.6 K/mcL (4.3-11.1)
[2020-11-29 03:31] LABS: Calcium 9.3 mg/dL (8.6-10.3); Magnesium 1.7 mg/dL (1.6-2.6)
[2020-11-29] MEDS: Budesonide/Formoterol 80/4.5 1 PUFF INH IH SCH ×2 (07:40→20:15)
[2020-11-29] MEDS ORDERED: Furosemide 40 MG TABLET PO SCH (09:00)
[2020-11-29] MEDS: Multivit/Ca/Min/Fe/FA 1 TAB TABLET PO SCH (09:04)
[2020-11-29] MEDS: Folic Acid 1 MG TABLET PO SCH (09:04)
[2020-11-29] MEDS: Furosemide 40 MG TABLET PO SCH ×2 (09:04→16:54)
[2020-11-29] MEDS: Isosorbide MONOnitrate (24 HR) 60 MG TAB.ER.24H PO SCH (09:04)
[2020-11-29] MEDS: allopurinoL 100 MG TABLET PO SCH (09:04)
[2020-11-29] MEDS: carvediloL 25 MG TABLET PO SCH ×2 (09:04→16:54)
[2020-11-29] MEDS: Insulin LISPRO 300 UNITS/3 ML VIAL SUBQ SCH ×4 (09:04→20:29)
[2020-11-29] MEDS: Aspirin 81 MG TAB.CHEW PO SCH (09:04)
[2020-11-29] MEDS: Loratadine 10 MG TABLET PO SCH (09:04)
[2020-11-29] MEDS: Cyanocobalamin (B-12) 1,000 MCG TABLET PO SCH (09:04)
[2020-11-29] MEDS: Fluticasone Propionate Nasal 50 MCG/SPRAY BOTTLE NS SCH (09:05)
[2020-11-29] MEDS: Melatonin 3 MG TABLET PO PRN (20:33)
[2020-11-30 03:51] LABS: Immature Platelets 14.8 % (1.1-6.1); Mean Corpuscular HGB Conc 32.1 g/dL (31.6-35.5); Mean Corpuscular Hemoglobin 33.7 pg (28.0-33.3); Mean Corpuscular Volume 104.9 fL (83.0-100.0); Mean Platelet Volume 13.3 fL (9.4-12.4); Red Blood Count 2.67 M/mcL (3.82-4.97); Red Cell Distribution Width 22.5 % (11.5-14.5); White Blood Count 4.3 K/mcL (4.3-11.1)
[2020-11-30 04:04] LABS: Calcium 9.2 mg/dL (8.6-10.3); Potassium 4.3 mEq/L (3.5-5.1)
[2020-11-30] MEDS: Folic Acid 1 MG TABLET PO SCH (08:14)
[2020-11-30] MEDS: allopurinoL 100 MG TABLET PO SCH (08:14)
[2020-11-30] MEDS: Cyanocobalamin (B-12) 1,000 MCG TABLET PO SCH (08:14)
[2020-11-30] MEDS: Aspirin 81 MG TAB.CHEW PO SCH (08:14)
[2020-11-30] MEDS: Multivit/Ca/Min/Fe/FA 1 TAB TABLET PO SCH (08:14)
[2020-11-30] MEDS: carvediloL 25 MG TABLET PO SCH (08:14)
[2020-11-30] MEDS: Isosorbide MONOnitrate (24 HR) 60 MG TAB.ER.24H PO SCH (08:15)
[2020-11-30] MEDS: Fluticasone Propionate Nasal 50 MCG/SPRAY BOTTLE NS SCH (08:15)
[2020-11-30] MEDS: Furosemide 40 MG TABLET PO SCH (08:15)
[2020-11-30] MEDS: Insulin LISPRO 300 UNITS/3 ML VIAL SUBQ SCH ×2 (08:15→11:50)
[2020-11-30] MEDS: Loratadine 10 MG TABLET PO SCH (08:15)
[2020-11-30] MEDS: Budesonide/Formoterol 80/4.5 1 PUFF INH IH SCH (09:32)
[2020-11-30 10:52] VITALS: BP 127/63
== END 2020-11-30 14:08 | disposition home health service (06) | DRG 811 ==
LOC: 2ANU → SUATTDRO 17:29
PROVIDERS: ADMIT Internal Medicine; ATTEND Internal Medicine

== ENCOUNTER 2021-08-02 17:41 | Inpatient (IN) ==
[2021-08-02] MEDS ORDERED: Naloxone 0.4 MG/ML INJ IVP PRN (22:52)
[2021-08-02] MEDS ORDERED: Melatonin 3 MG TABLET PO PRN (22:52)
[2021-08-02] MEDS ORDERED: *HR* Promethazine 25 MG/ML VIAL IM PRN (22:52)
[2021-08-02] MEDS ORDERED: *HR* HYDROcodone/Acet 5/325 mg TABLET PO PRN (22:52)
[2021-08-02] MEDS ORDERED: Ondansetron 4 MG/2 ML VIAL IVP PRN (22:52)
[2021-08-03] MEDS ORDERED: Furosemide 40 MG/4 ML VIAL IVP ONE (00:01)
[2021-08-03 02:40] LABS: Calcium 8.4 mg/dL (8.6-10.3); Chol/HDL Ratio 2.2 (0-4.9); Magnesium 1.9 mg/dL (1.6-2.6); Potassium 4.4 mEq/L (3.5-5.1)
[2021-08-03 03:48] LABS: Eosinophils % 0.8 %; Hematocrit 23.9 % (35.3-44.9); Hemoglobin 7.4 g/dL (11.5-15.4); Immature Granulocytes % 0.8 % (0-4); Immature Platelets 11.7 % (1.1-6.1); Lymphocytes # 0.5 K/mcL (0.6-4.6); Lymphocytes % 40.2 %; Mean Corpuscular Hemoglobin 32.9 pg (28.0-33.3); Mean Corpuscular Volume 106.2 fL (83.0-100.0); Monocytes # 0.2 K/mcL (0.0-1.3); Monocytes % 13.4 %; Neutrophils # 0.6 K/mcL (1.6-8.9); Red Blood Count 2.25 M/mcL (3.82-4.97); Red Cell Distribution Width 24.9 % (11.5-14.5); Segmented Neutrophils % 44.8 %; White Blood Count 1.3 K/mcL (4.3-11.1)
[2021-08-03 03:58] LABS: INR 1.3; Prothrombin Time 14.6 Seconds (9.4-12.1)
[2021-08-03 04:13] LABS: Platelet Count 20 K/mcL (140-400)
[2021-08-03 05:51] LABS: Platelet Estimate Decreased (Normal)
[2021-08-03 05:52] LABS: Anisocytosis 3+ (Not Present)
[2021-08-03] MEDS: Furosemide 40 MG TABLET PO SCH (07:58)
[2021-08-03] MEDS ORDERED: carvediloL 25 MG TABLET PO SCH (08:00)
[2021-08-03] MEDS ORDERED: Aspirin 81 MG TAB.CHEW PO SCH (09:00)
[2021-08-03] MEDS ORDERED: 0.9 % Sodium Chloride 250 ML IVC SCH (12:00)
[2021-08-03] MEDS: Erythromycin OPTH Oint LEFT EYE SCH ×4 (13:22→20:56)
[2021-08-03] MEDS: Aspirin Enteric Coated 81 MG Tablet PO SCH (13:22)
[2021-08-03] MEDS ORDERED: MetroNIDAZOLE 500 MG/100 ML 500 MG/100 ML BAG IVPB SCH (19:00)
[2021-08-03] MEDS ORDERED: 0.9 % Sodium Chloride 250 ML ONE (19:59)
[2021-08-04 02:19] LABS: Eosinophils % 1.1 %; Hematocrit 26.7 % (35.3-44.9); Hemoglobin 8.5 g/dL (11.5-15.4); Immature Granulocytes % 3.7 % (0-4); Lymphocytes # 0.7 K/mcL (0.6-4.6); Lymphocytes % 36.2 %; Mean Corpuscular HGB Conc 31.8 g/dL (31.6-35.5); Mean Corpuscular Hemoglobin 31.6 pg (28.0-33.3); Monocytes # 0.2 K/mcL (0.0-1.3); Monocytes % 10.6 %; Neutrophils # 0.9 K/mcL (1.6-8.9); Red Blood Count 2.69 M/mcL (3.82-4.97); Red Cell Distribution Width 23.7 % (11.5-14.5); Segmented Neutrophils % 48.4 %; White Blood Count 1.9 K/mcL (4.3-11.1)
[2021-08-04 02:21] LABS: Mean Corpuscular Volume 99.3 fL (83.0-100.0); Platelet Count 37 K/mcL (140-400)
[2021-08-04 02:28] LABS: Anisocytosis 1+ (Not Present); Calcium 8.3 mg/dL (8.6-10.3); Platelet Estimate Decreased (Normal); Poikilocytosis 1+ (Not Present); Potassium 4.3 mEq/L (3.5-5.1)
[2021-08-04] MEDS: MetroNIDAZOLE 500 MG/100 ML 500 MG/100 ML BAG IVPB SCH ×3 (05:30→21:10)
[2021-08-04] MEDS ORDERED: carvediloL 25 MG TABLET PO SCH (08:00)
[2021-08-04] MEDS: Aspirin Enteric Coated 81 MG Tablet PO SCH (08:18)
[2021-08-04] MEDS: Erythromycin OPTH Oint LEFT EYE SCH ×3 (08:18→21:13)
[2021-08-04] MEDS: Furosemide 40 MG TABLET PO SCH (08:18)
[2021-08-04] MEDS: Isosorbide MONOnitrate (24 HR) 60 MG TAB.ER.24H PO SCH (09:56)
[2021-08-05 02:35] LABS: Basophils % 0.5 %; Eosinophils % 0.5 %; Hematocrit 25.6 % (35.3-44.9); Hemoglobin 7.9 g/dL (11.5-15.4); Immature Granulocytes % 0.5 % (0-4); Immature Platelets 6.8 % (1.1-6.1); Lymphocytes # 0.5 K/mcL (0.6-4.6); Lymphocytes % 25.1 %; Mean Corpuscular HGB Conc 30.9 g/dL (31.6-35.5); Mean Corpuscular Volume 103.6 fL (83.0-100.0); Mean Platelet Volume 12.5 fL (9.4-12.4); Monocytes # 0.3 K/mcL (0.0-1.3); Monocytes % 12.8 %; Neutrophils # 1.2 K/mcL (1.6-8.9); Red Blood Count 2.47 M/mcL (3.82-4.97); Red Cell Distribution Width 23.3 % (11.5-14.5); Segmented Neutrophils % 60.6 %
[2021-08-05 02:36] LABS: Platelet Count 36 K/mcL (140-400)
[2021-08-05 02:51] LABS: Calcium 7.9 mg/dL (8.6-10.3); Potassium 3.6 mEq/L (3.5-5.1)
[2021-08-05 02:58] LABS: Anisocytosis 1+ (Not Present); Platelet Estimate Decreased (Normal); Poikilocytosis 1+ (Not Present)
[2021-08-05] MEDS: MetroNIDAZOLE 500 MG/100 ML 500 MG/100 ML BAG IVPB SCH (05:20)
[2021-08-05] MEDS: Aspirin Enteric Coated 81 MG Tablet PO SCH (08:37)
[2021-08-05] MEDS: Erythromycin OPTH Oint LEFT EYE SCH ×3 (08:37→21:46)
[2021-08-05] MEDS: Furosemide 40 MG TABLET PO SCH (08:37)
[2021-08-05] MEDS: Isosorbide MONOnitrate (24 HR) 60 MG TAB.ER.24H PO SCH (08:38)
[2021-08-05] MEDS ORDERED: *HR* FentaNYL (PF) 100 MCG/2 ML VIAL ONE (11:50)
[2021-08-05] MEDS ORDERED: Lidocaine -MPF 2% 5 ML VIAL ONE (11:51)
[2021-08-05] MEDS ORDERED: *HR* Succinylcholine 200 MG/10 ML VIAL IVP ONE (11:52)
[2021-08-05] MEDS ORDERED: Ondansetron 4 MG/2 ML VIAL ONE (11:53)
[2021-08-05] MEDS ORDERED: Lidocaine -MPF 4% 5 ML AMPUL ONE (11:57)
[2021-08-05] MEDS: metroNIDAZOLE 500 MG TABLET PO SCH ×2 (15:54→21:45)
[2021-08-05] MEDS ORDERED: Sennosides 8.6 MG TABLET PO PRN (17:20)
[2021-08-06 02:50] LABS: Basophils % 0.4 %; Hematocrit 27.9 % (35.3-44.9); Hemoglobin 8.8 g/dL (11.5-15.4); Mean Corpuscular HGB Conc 31.5 g/dL (31.6-35.5); Mean Corpuscular Hemoglobin 31.8 pg (28.0-33.3); Mean Corpuscular Volume 100.7 fL (83.0-100.0); Red Blood Count 2.77 M/mcL (3.82-4.97)
[2021-08-06 02:52] LABS: Eosinophils % 1.6 %; Immature Granulocytes % 0.4 % (0-4); Immature Platelets 5.8 % (1.1-6.1); Lymphocytes # 0.7 K/mcL (0.6-4.6); Lymphocytes % 26.4 %; Mean Platelet Volume 11.7 fL (9.4-12.4); Monocytes # 0.3 K/mcL (0.0-1.3); Neutrophils # 1.5 K/mcL (1.6-8.9); Red Cell Distribution Width 23.3 % (11.5-14.5); Segmented Neutrophils % 61.2 %; White Blood Count 2.5 K/mcL (4.3-11.1)
[2021-08-06 03:02] LABS: Calcium 8.3 mg/dL (8.6-10.3); Potassium 3.9 mEq/L (3.5-5.1)
[2021-08-06 03:15] LABS: Anisocytosis 2+ (Not Present); Macrocytosis Present (Not Present); Platelet Count 49 K/mcL (140-400); Platelet Estimate Decreased (Normal)
[2021-08-06] MEDS: allopurinoL 100 MG TABLET PO SCH (10:53)
[2021-08-06] MEDS: Isosorbide MONOnitrate (24 HR) 60 MG TAB.ER.24H PO SCH (10:53)
[2021-08-06] MEDS: metroNIDAZOLE 500 MG TABLET PO SCH ×3 (10:53→20:58)
[2021-08-06] MEDS: Furosemide 40 MG TABLET PO SCH (10:53)
[2021-08-06] MEDS: Aspirin Enteric Coated 81 MG Tablet PO SCH (10:53)
[2021-08-06] MEDS: Cholecalciferol (D-3) 1,000 UNIT (25MCG) TABLET PO SCH (10:53)
[2021-08-06] MEDS: Erythromycin OPTH Oint LEFT EYE SCH ×3 (11:09→20:59)
[2021-08-06] MEDS ORDERED: Isosorbide MONOnitrate (24 HR) 30 MG TAB.ER.24H PO ONE (12:34)
[2021-08-06] MEDS: *HR* OxyCODONE Immed Rel 5 MG TABLET PO PRN (18:47)
[2021-08-06] MEDS: Melatonin 3 MG TABLET PO PRN (21:02)
[2021-08-06] MEDS: Acetaminophen 325 MG TABLET PO PRN (21:02)
[2021-08-07 02:59] LABS: Basophils % 0.4 %; Eosinophils % 1.7 %; Hematocrit 25.4 % (35.3-44.9); Hemoglobin 7.8 g/dL (11.5-15.4); Immature Granulocytes % 0.4 % (0-4); Lymphocytes # 0.6 K/mcL (0.6-4.6); Lymphocytes % 26.7 %; Mean Corpuscular HGB Conc 30.7 g/dL (31.6-35.5); Mean Corpuscular Hemoglobin 32.1 pg (28.0-33.3); Mean Corpuscular Volume 104.5 fL (83.0-100.0); Mean Platelet Volume 11.5 fL (9.4-12.4); Monocytes # 0.3 K/mcL (0.0-1.3); Monocytes % 12.9 %; Neutrophils # 1.3 K/mcL (1.6-8.9); Red Blood Count 2.43 M/mcL (3.82-4.97); Red Cell Distribution Width 23.5 % (11.5-14.5); Segmented Neutrophils % 57.9 %; White Blood Count 2.3 K/mcL (4.3-11.1)
[2021-08-07 03:02] LABS: Platelet Count 66 K/mcL (140-400)
[2021-08-07 03:09] LABS: Calcium 8.2 mg/dL (8.6-10.3); Potassium 3.6 mEq/L (3.5-5.1)
[2021-08-07] MEDS: metroNIDAZOLE 500 MG TABLET PO SCH ×3 (09:58→20:43)
[2021-08-07] MEDS: allopurinoL 100 MG TABLET PO SCH (09:58)
[2021-08-07] MEDS: Isosorbide MONOnitrate (24 HR) 30 MG TAB.ER.24H PO SCH (09:58)
[2021-08-07] MEDS: Cholecalciferol (D-3) 1,000 UNIT (25MCG) TABLET PO SCH (09:58)
[2021-08-07] MEDS: Aspirin Enteric Coated 81 MG Tablet PO SCH (09:59)
[2021-08-07] MEDS: Furosemide 40 MG TABLET PO SCH (09:59)
[2021-08-07] MEDS: Erythromycin OPTH Oint LEFT EYE SCH ×3 (09:59→20:42)
[2021-08-07 10:01] LABS: Albumin 2.8 g/dL (3.5-5.7); Albumin/Globulin Ratio 1.2 (1.1-2.2); Bilirubin,Direct 0.5 mg/dL (0.0-0.2); Bilirubin,Indirect 0.8 mg/dL (0.0-1.0); Bilirubin,Total 1.3 mg/dL (0.3-1.0); Globulin 2.3 g/dL (2.4-3.5); Total Protein 5.1 g/dL (6.4-8.9)
[2021-08-07] MEDS: hydrALAZINE 10 MG TABLET PO SCH ×2 (10:03→15:45)
[2021-08-07] MEDS: Sennosides 8.6 MG TABLET PO SCH (10:03)
[2021-08-07] MEDS ORDERED: hydrALAZINE 25 MG TABLET PO SCH (21:00)
[2021-08-07] MEDS: Acetaminophen 325 MG TABLET PO PRN (21:52)
[2021-08-08 02:29] LABS: Eosinophils % 0.8 %; Hematocrit 26.3 % (35.3-44.9); Hemoglobin 8.1 g/dL (11.5-15.4); Immature Granulocytes % 0.8 % (0-4); Immature Platelets 3.5 % (1.1-6.1); Lymphocytes # 0.6 K/mcL (0.6-4.6); Lymphocytes % 23.3 %; Mean Corpuscular HGB Conc 30.8 g/dL (31.6-35.5); Mean Corpuscular Hemoglobin 31.9 pg (28.0-33.3); Mean Corpuscular Volume 103.5 fL (83.0-100.0); Mean Platelet Volume 10.9 fL (9.4-12.4); Monocytes # 0.3 K/mcL (0.0-1.3); Monocytes % 13.1 %; Red Blood Count 2.54 M/mcL (3.82-4.97); Red Cell Distribution Width 23.2 % (11.5-14.5); White Blood Count 2.5 K/mcL (4.3-11.1)
[2021-08-08 02:30] LABS: Neutrophils # 1.6 K/mcL (1.6-8.9); Platelet Count 75 K/mcL (140-400)
[2021-08-08 02:44] LABS: Albumin 2.8 g/dL (3.5-5.7); Bilirubin,Direct 0.5 mg/dL (0.0-0.2); Bilirubin,Indirect 0.9 mg/dL (0.0-1.0); Bilirubin,Total 1.4 mg/dL (0.3-1.0); Globulin 2.7 g/dL (2.4-3.5); Total Protein 5.5 g/dL (6.4-8.9)
[2021-08-08 02:47] LABS: Calcium 8.1 mg/dL (8.6-10.3); Potassium 3.7 mEq/L (3.5-5.1)
[2021-08-08 02:50] LABS: Anisocytosis 1+ (Not Present); Platelet Estimate Slight Decrease (Normal)
[2021-08-08] MEDS: *HR* OxyCODONE Immed Rel 5 MG TABLET PO PRN ×3 (04:34→20:16)
[2021-08-08] MEDS: Aspirin Enteric Coated 81 MG Tablet PO SCH (08:32)
[2021-08-08] MEDS: hydrALAZINE 25 MG TABLET PO SCH ×3 (08:32→20:16)
[2021-08-08] MEDS: Erythromycin OPTH Oint LEFT EYE SCH ×3 (08:33→20:17)
[2021-08-08] MEDS: Sennosides 8.6 MG TABLET PO SCH (08:33)
[2021-08-08] MEDS: metroNIDAZOLE 500 MG TABLET PO SCH ×3 (08:33→20:16)
[2021-08-08] MEDS: allopurinoL 100 MG TABLET PO SCH (08:33)
[2021-08-08] MEDS: Cholecalciferol (D-3) 1,000 UNIT (25MCG) TABLET PO SCH (08:33)
[2021-08-08] MEDS: Furosemide 40 MG TABLET PO SCH (08:33)
[2021-08-08] MEDS: Isosorbide MONOnitrate (24 HR) 30 MG TAB.ER.24H PO SCH (08:33)
[2021-08-08] MEDS ORDERED: carvediloL 6.25 MG TABLET PO STA (15:48)
[2021-08-08] MEDS: Melatonin 3 MG TABLET PO PRN (20:16)
[2021-08-09] MEDS: Aspirin Enteric Coated 81 MG Tablet PO SCH (07:19)
[2021-08-09] MEDS: *HR* OxyCODONE Immed Rel 5 MG TABLET PO PRN ×3 (07:19→21:02)
[2021-08-09] MEDS: Sennosides 8.6 MG TABLET PO SCH (07:19)
[2021-08-09] MEDS: Cholecalciferol (D-3) 1,000 UNIT (25MCG) TABLET PO SCH (07:19)
[2021-08-09] MEDS: metroNIDAZOLE 500 MG TABLET PO SCH ×3 (07:19→21:01)
[2021-08-09] MEDS: hydrALAZINE 25 MG TABLET PO SCH ×3 (07:19→21:01)
[2021-08-09] MEDS: Isosorbide MONOnitrate (24 HR) 30 MG TAB.ER.24H PO SCH (07:20)
[2021-08-09] MEDS: Furosemide 40 MG TABLET PO SCH (07:21)
[2021-08-09] MEDS: allopurinoL 100 MG TABLET PO SCH (07:21)
[2021-08-09] MEDS: Erythromycin OPTH Oint LEFT EYE SCH ×2 (07:21→14:39)
[2021-08-09] MEDS ORDERED: carvediloL 25 MG TABLET PO SCH ×2 (08:00→17:00)
[2021-08-09 08:01] LABS: Basophils % 0.6 %; Eosinophils % 1.3 %; Hematocrit 23.4 % (35.3-44.9); Hemoglobin 7.5 g/dL (11.5-15.4); Immature Granulocytes % 0.6 % (0-4); Immature Platelets 3.6 % (1.1-6.1); Lymphocytes # 0.4 K/mcL (0.6-4.6); Lymphocytes % 26.9 %; Mean Corpuscular HGB Conc 32.1 g/dL (31.6-35.5); Mean Corpuscular Hemoglobin 33.9 pg (28.0-33.3); Mean Corpuscular Volume 105.9 fL (83.0-100.0); Mean Platelet Volume 10.3 fL (9.4-12.4); Monocytes # 0.2 K/mcL (0.0-1.3); Monocytes % 11.3 %; Red Blood Count 2.21 M/mcL (3.82-4.97); Red Cell Distribution Width 23.7 % (11.5-14.5); Segmented Neutrophils % 59.3 %; White Blood Count 1.6 K/mcL (4.3-11.1)
[2021-08-09 08:14] LABS: Calcium 8.9 mg/dL (8.6-10.3); Potassium 3.8 mEq/L (3.5-5.1)
[2021-08-09 08:18] LABS: Platelet Count 88 K/mcL (140-400)
[2021-08-09 08:20] LABS: Anisocytosis 1+ (Not Present); Platelet Estimate Decreased (Normal)
[2021-08-09] MEDS: carvediloL 6.25 MG TABLET PO SCH (16:55)
[2021-08-09] MEDS: Melatonin 3 MG TABLET PO PRN (21:02)
[2021-08-10] MEDS: *HR* OxyCODONE Immed Rel 5 MG TABLET PO PRN ×3 (05:18→17:22)
[2021-08-10 06:24] LABS: Eosinophils % 1.1 %; Hematocrit 24.2 % (35.3-44.9); Hemoglobin 7.3 g/dL (11.5-15.4); Immature Granulocytes % 0.5 % (0-4); Immature Platelets 2.8 % (1.1-6.1); Lymphocytes # 0.5 K/mcL (0.6-4.6); Lymphocytes % 26.8 %; Mean Corpuscular HGB Conc 30.2 g/dL (31.6-35.5); Mean Corpuscular Hemoglobin 31.7 pg (28.0-33.3); Mean Corpuscular Volume 105.2 fL (83.0-100.0); Monocytes # 0.2 K/mcL (0.0-1.3); Monocytes % 9.3 %; Neutrophils # 1.1 K/mcL (1.6-8.9); Red Cell Distribution Width 23.7 % (11.5-14.5); Segmented Neutrophils % 62.3 %; White Blood Count 1.8 K/mcL (4.3-11.1)
[2021-08-10 06:36] LABS: Platelet Count 95 K/mcL (140-400)
[2021-08-10 06:40] LABS: Calcium 8.5 mg/dL (8.6-10.3); Potassium 4.1 mEq/L (3.5-5.1)
[2021-08-10 06:51] LABS: Anisocytosis 1+ (Not Present)
[2021-08-10 06:52] LABS: Hypochromasia Present (Not Present); Platelet Estimate Decreased (Normal)
[2021-08-10] MEDS: carvediloL 6.25 MG TABLET PO SCH ×2 (07:50→17:23)
[2021-08-10] MEDS: Isosorbide MONOnitrate (24 HR) 30 MG TAB.ER.24H PO SCH (07:50)
[2021-08-10] MEDS: Aspirin Enteric Coated 81 MG Tablet PO SCH (07:50)
[2021-08-10] MEDS: Sennosides 8.6 MG TABLET PO SCH (07:50)
[2021-08-10] MEDS: hydrALAZINE 25 MG TABLET PO SCH ×3 (07:50→20:42)
[2021-08-10] MEDS: metroNIDAZOLE 500 MG TABLET PO SCH ×3 (07:50→20:42)
[2021-08-10] MEDS: Cholecalciferol (D-3) 1,000 UNIT (25MCG) TABLET PO SCH (07:51)
[2021-08-10] MEDS: Furosemide 40 MG TABLET PO SCH (07:51)
[2021-08-10] MEDS: allopurinoL 100 MG TABLET PO SCH (07:51)
[2021-08-10] MEDS ORDERED: 0.9 % Sodium Chloride 1,000 ML IVC SCH (14:30)
[2021-08-10] MEDS: Melatonin 3 MG TABLET PO PRN (20:42)
[2021-08-11 04:44] LABS: Albumin 2.7 g/dL (3.5-5.7); Albumin/Globulin Ratio 0.9 (1.1-2.2); Bilirubin,Direct 0.3 mg/dL (0.0-0.2); Bilirubin,Indirect 0.7 mg/dL (0.0-1.0); Calcium 8.4 mg/dL (8.6-10.3); Globulin 2.9 g/dL (2.4-3.5); Magnesium 1.6 mg/dL (1.6-2.6); Potassium 4.1 mEq/L (3.5-5.1); Total Protein 5.6 g/dL (6.4-8.9)
[2021-08-11 04:54] LABS: Basophils % 0.5 %; Eosinophils % 0.5 %; Hematocrit 23.8 % (35.3-44.9); Hemoglobin 7.5 g/dL (11.5-15.4); Mean Corpuscular HGB Conc 31.5 g/dL (31.6-35.5)
[2021-08-11 04:56] LABS: Immature Granulocytes % 0.5 % (0-4); Immature Platelets 2.1 % (1.1-6.1); Lymphocytes # 0.6 K/mcL (0.6-4.6); Lymphocytes % 26.5 %; Mean Corpuscular Volume 104.8 fL (83.0-100.0); Monocytes # 0.3 K/mcL (0.0-1.3); Monocytes % 11.6 %; Neutrophils # 1.3 K/mcL (1.6-8.9); Platelet Count 111 K/mcL (140-400); Red Blood Count 2.27 M/mcL (3.82-4.97); Red Cell Distribution Width 23.9 % (11.5-14.5); Segmented Neutrophils % 60.4 %; White Blood Count 2.2 K/mcL (4.3-11.1)
[2021-08-11 05:08] LABS: Folate 10.8 ng/mL (3.0-16.0)
[2021-08-11 05:12] LABS: Anisocytosis 2+ (Not Present); Macrocytosis Present (Not Present); Platelet Estimate Slight Decrease (Normal)
[2021-08-11 05:57] LABS: Ferritin 630 ng/mL (10-120); Iron 49 mcg/dL (50-170)
[2021-08-11] MEDS: Sennosides 8.6 MG TABLET PO SCH (08:59)
[2021-08-11] MEDS: Cholecalciferol (D-3) 1,000 UNIT (25MCG) TABLET PO SCH (08:59)
[2021-08-11] MEDS: hydrALAZINE 25 MG TABLET PO SCH ×3 (08:59→21:40)
[2021-08-11] MEDS: allopurinoL 100 MG TABLET PO SCH (09:00)
[2021-08-11] MEDS: Isosorbide MONOnitrate (24 HR) 30 MG TAB.ER.24H PO SCH (09:00)
[2021-08-11] MEDS: Furosemide 40 MG TABLET PO SCH (09:00)
[2021-08-11] MEDS: Aspirin Enteric Coated 81 MG Tablet PO SCH (09:00)
[2021-08-11] MEDS: metroNIDAZOLE 500 MG TABLET PO SCH ×3 (09:01→21:40)
[2021-08-11] MEDS: carvediloL 6.25 MG TABLET PO SCH ×2 (09:01→19:20)
[2021-08-11 11:02] LABS: Adenovirus Not Detected (Not Detect); Bordetella Pertussis Not Detected (Not Detect); Chlamydophila pneumoniae Not Detected (Not Detect); Coronavirus 229E Not Detected (Not Detect); Coronavirus HKU1 Not Detected (Not Detect); Coronavirus NL63 Not Detected (Not Detect); Coronavirus OC43 Not Detected (Not Detect); Human Metapneumovirus Not Detected (Not Detect); Human Rhinovirus/Enterovirus Not Detected (Not Detect); Influenza A Subtype 2009 H1 Not Detected (Not Detect); Influenza B Not Detected (Not Detect); Mycoplasma pneumoniae Not Detected (Not Detect); Parainfluenza Virus 1 Not Detected (Not Detect); Parainfluenza Virus 2 Not Detected (Not Detect); Parainfluenza Virus 3 Not Detected (Not Detect); Parainfluenza Virus 4 Not Detected (Not Detect); Respiratory Syncytial Virus Not Detected (Not Detect); SARS-CoV-2 Not Detected (Not Detect)
[2021-08-11] MEDS: Melatonin 3 MG TABLET PO PRN (21:40)
[2021-08-12 05:49] LABS: Basophils % 0.8 %; Eosinophils % 0.8 %; Hematocrit 23.4 % (35.3-44.9); Hemoglobin 7.3 g/dL (11.5-15.4); Immature Granulocytes % 1.2 % (0-4); Lymphocytes # 0.5 K/mcL (0.6-4.6); Lymphocytes % 20.3 %; Mean Corpuscular HGB Conc 31.2 g/dL (31.6-35.5); Mean Corpuscular Volume 105.9 fL (83.0-100.0); Mean Platelet Volume 9.9 fL (9.4-12.4); Monocytes # 0.3 K/mcL (0.0-1.3); Monocytes % 9.8 %; Neutrophils # 1.7 K/mcL (1.6-8.9); Platelet Count 118 K/mcL (140-400); Red Blood Count 2.21 M/mcL (3.82-4.97); Red Cell Distribution Width 24.2 % (11.5-14.5); Segmented Neutrophils % 67.1 %; White Blood Count 2.6 K/mcL (4.3-11.1)
[2021-08-12 06:00] LABS: Magnesium 1.6 mg/dL (1.6-2.6); Potassium 4.1 mEq/L (3.5-5.1)
[2021-08-12 06:35] LABS: Platelet Estimate Decreased (Normal)
[2021-08-12 06:36] LABS: Anisocytosis 3+ (Not Present)
[2021-08-12 07:55] VITALS: BP 140/55; PULSE 62; TEMP 97.8; O2SAT 98
[2021-08-12] MEDS: metroNIDAZOLE 500 MG TABLET PO SCH (08:17)
[2021-08-12] MEDS: Isosorbide MONOnitrate (24 HR) 30 MG TAB.ER.24H PO SCH (08:17)
[2021-08-12] MEDS: hydrALAZINE 25 MG TABLET PO SCH (08:17)
[2021-08-12] MEDS: Aspirin Enteric Coated 81 MG Tablet PO SCH (08:18)
[2021-08-12] MEDS: Sennosides 8.6 MG TABLET PO SCH (08:18)
[2021-08-12] MEDS: carvediloL 6.25 MG TABLET PO SCH (08:18)
[2021-08-12] MEDS: Furosemide 40 MG TABLET PO SCH (08:18)
[2021-08-12] MEDS: Cholecalciferol (D-3) 1,000 UNIT (25MCG) TABLET PO SCH (08:19)
[2021-08-12] MEDS: allopurinoL 100 MG TABLET PO SCH (08:19)
[2021-08-14 10:19] LABS: % Iron Saturation 34 % (15-50); Transferrin 102 mg/dL (200-400)
== END 2021-08-12 09:00 | DRG 808 ==
LOC: 3ANU → SUATTDRO 19:58
PROVIDERS: ADMIT Internal Medicine; ATTEND Pharmacist

== ENCOUNTER 2021-08-22 16:30 | Inpatient (IN) ==
[2021-08-22] MEDS ORDERED: Naloxone 0.4 MG/ML INJ IVP PRN (20:03)
[2021-08-22 22:54] LABS: Basophils % 0.5 %; Eosinophils # 0.1 K/mcL (0.0-0.6); Eosinophils % 1.9 %; Hematocrit 27.1 % (35.3-44.9); Hemoglobin 8.5 g/dL (11.5-15.4); Immature Granulocytes % 0.5 % (0-4); Lymphocytes # 0.9 K/mcL (0.6-4.6); Lymphocytes % 23.3 %; Mean Corpuscular HGB Conc 31.4 g/dL (31.6-35.5); Mean Corpuscular Hemoglobin 33.1 pg (28.0-33.3); Mean Corpuscular Volume 105.4 fL (83.0-100.0); Mean Platelet Volume 9.8 fL (9.4-12.4); Monocytes # 0.2 K/mcL (0.0-1.3); Monocytes % 6.6 %; Neutrophils # 2.5 K/mcL (1.6-8.9); Platelet Count 181 K/mcL (140-400); Red Blood Count 2.57 M/mcL (3.82-4.97); Red Cell Distribution Width 25.2 % (11.5-14.5); Segmented Neutrophils % 67.2 %; White Blood Count 3.7 K/mcL (4.3-11.1)
[2021-08-23] MEDS: Pantoprazole 40 MG in 0.9 % Sodium Chloride Mini Bag 100 ML IVC SCH ×6 (01:19→23:54)
[2021-08-23 04:47] LABS: Hemoglobin 8.6 g/dL (11.5-15.4); Mean Corpuscular HGB Conc 30.7 g/dL (31.6-35.5); Mean Corpuscular Hemoglobin 32.3 pg (28.0-33.3); Mean Corpuscular Volume 105.3 fL (83.0-100.0); Mean Platelet Volume 9.7 fL (9.4-12.4); Platelet Count 171 K/mcL (140-400); Red Blood Count 2.66 M/mcL (3.82-4.97); Red Cell Distribution Width 24.9 % (11.5-14.5); White Blood Count 3.8 K/mcL (4.3-11.1)
[2021-08-23 05:29] LABS: Albumin 3.1 g/dL (3.5-5.7); Albumin/Globulin Ratio 1.2 (1.1-2.2); Calcium 8.9 mg/dL (8.6-10.3); Globulin 2.5 g/dL (2.4-3.5); Potassium 4.2 mEq/L (3.5-5.1); Total Protein 5.6 g/dL (6.4-8.9)
[2021-08-23] MEDS ORDERED: Ondansetron ODT 4 MG TAB.RAPDIS SL PRN (13:31)
[2021-08-23] MEDS ORDERED: SODIUM CHLORIDE/NAHCO3/KCL/PEG 4,000 ML SOLN.RECON PO ONE (17:00)
[2021-08-24 02:51] LABS: Hematocrit 30.6 % (35.3-44.9); Hemoglobin 9.4 g/dL (11.5-15.4); Mean Corpuscular HGB Conc 30.7 g/dL (31.6-35.5); Mean Corpuscular Hemoglobin 33.1 pg (28.0-33.3); Mean Corpuscular Volume 107.7 fL (83.0-100.0); Mean Platelet Volume 9.7 fL (9.4-12.4); Platelet Count 198 K/mcL (140-400); Red Blood Count 2.84 M/mcL (3.82-4.97); Red Cell Distribution Width 23.9 % (11.5-14.5); White Blood Count 4.1 K/mcL (4.3-11.1)
[2021-08-24 03:09] LABS: Potassium 4.1 mEq/L (3.5-5.1)
[2021-08-24] MEDS: Pantoprazole 40 MG in 0.9 % Sodium Chloride Mini Bag 100 ML IVC SCH ×3 (05:44→20:12)
[2021-08-24] MEDS: Furosemide 20 MG/2 ML VIAL IVP SCH ×2 (12:10→20:16)
[2021-08-24] MEDS ORDERED: Lidocaine -MPF 2% 5 ML VIAL ONE (12:52)
[2021-08-24] MEDS ORDERED: *HR* Propofol 200 MG/20 ML VIAL IVP ONE (12:53)
[2021-08-24] MEDS ORDERED: *HR* OxyCODONE Immed Rel 5 MG TABLET PO PRN (15:18)
[2021-08-24] MEDS ORDERED: NON-FORMULARY MEDICATION 1 EACH EACH (Ondansetron Hcl [Zofran] 4 MG Tablet) PO PRN (15:18)
[2021-08-24] MEDS ORDERED: Melatonin 3 MG TABLET PO PRN (15:18)
[2021-08-24] MEDS ORDERED: Sennosides 8.6 MG TABLET PO PRN (15:18)
[2021-08-24] MEDS: carvediloL 6.25 MG TABLET PO SCH (16:46)
[2021-08-24] MEDS: hydrALAZINE 25 MG TABLET PO SCH ×2 (16:46→20:14)
[2021-08-25] MEDS: Pantoprazole 40 MG in 0.9 % Sodium Chloride Mini Bag 100 ML IVC SCH ×2 (01:54→07:08)
[2021-08-25 03:05] LABS: Hematocrit 28.9 % (35.3-44.9); Hemoglobin 8.8 g/dL (11.5-15.4); Mean Corpuscular HGB Conc 30.4 g/dL (31.6-35.5); Mean Corpuscular Hemoglobin 33.1 pg (28.0-33.3); Mean Corpuscular Volume 108.6 fL (83.0-100.0); Mean Platelet Volume 9.9 fL (9.4-12.4); Platelet Count 185 K/mcL (140-400); Red Blood Count 2.66 M/mcL (3.82-4.97); Red Cell Distribution Width 23.1 % (11.5-14.5)
[2021-08-25 03:20] LABS: Calcium 8.9 mg/dL (8.6-10.3)
[2021-08-25] MEDS ORDERED: *HR* Dextrose 50 % in Water (Syg) 50 ML SYRINGE IVP PRN (04:45)
[2021-08-25] MEDS ORDERED: Dextrose Gel 15 GM/37.5 ML TUBE PO PRN ×2 (04:45)
[2021-08-25] MEDS ORDERED: D5% in Water 1,000 ML IVC PRN (04:45)
[2021-08-25] MEDS ORDERED: Aspirin 81 MG TAB.CHEW PO SCH (09:00)
[2021-08-25] MEDS: Insulin LISPRO 300 UNITS/3 ML VIAL SUBQ SCH ×3 (09:03→17:52)
[2021-08-25] MEDS: hydrALAZINE 25 MG TABLET PO SCH ×2 (09:08→16:12)
[2021-08-25] MEDS: carvediloL 6.25 MG TABLET PO SCH ×2 (09:09→16:12)
[2021-08-25] MEDS: Furosemide 20 MG/2 ML VIAL IVP SCH (09:09)
[2021-08-25 15:07] VITALS: TEMP 97.8
[2021-08-25 15:10] LABS: Influenza A PCR Negative (Negative); Influenza B PCR Negative (Negative); Resp. Syncytial Virus PCR Negative (Negative)
[2021-08-25 15:11] LABS: SARS-CoV-2 by PCR (In House) Negative (Negative)
[2021-08-25 19:11] VITALS: BP 101/50; PULSE 59; O2SAT 97
[2021-08-25] MEDS ORDERED: Insulin LISPRO 300 UNITS/3 ML VIAL SUBQ SCH (21:00)
== END 2021-08-25 19:38 | DRG 811 ==
LOC: 3ANU → SUATTDRO 18:17
PROVIDERS: ADMIT Pharmacist; ATTEND Family Medicine

== ENCOUNTER 2022-02-06 13:07 | Inpatient (IN) ==
[2022-02-06] MEDS ORDERED: Melatonin 3 MG TABLET PO PRN (15:33)
[2022-02-06] MEDS ORDERED: Acetaminophen 325 MG TABLET PO PRN (15:33)
[2022-02-06] MEDS ORDERED: Ondansetron 4 MG/2 ML VIAL IVP PRN (15:33)
[2022-02-06] MEDS ORDERED: Naloxone 0.4 MG/ML INJ IVP PRN (15:33)
[2022-02-06] MEDS ORDERED: Sennosides 8.6 MG TABLET PO PRN (15:39)
[2022-02-06 16:57] LABS: Bilirubin,Urine Negative (Negative); Blood,Urine Negative (Negative); Clarity,Urine Clear (Clear); Color,Urine Light-Yellow (Yellow); Glucose,Urine (UA) Normal (Normal); Hyaline Casts,Urine Few per lpf (None Seen); Ketones,Urine Negative (Negative); Leukocyte Esterase,Urine Small (Negative); Nitrite,Urine Negative (Negative); PH,Urine 5.5 pH Units (5.0-8.0); Protein,Urine Negative (Neg-Trace); RBC,Urine 0-3 per hpf (0-3); Specific Gravity,Urine 1.013 (1.010-1.025); Urobilinogen,Urine Normal (Normal); WBC,Urine 0-3 per hpf (0-3)
[2022-02-06 17:03] LABS: Protein/Creatinine Ratio,Urine 0.19 mg/mg (0.00-0.20); Sodium, Urine 50.3 mEq/L
[2022-02-06] MEDS: hydrALAZINE 25 MG TABLET PO SCH (20:11)
[2022-02-06] MEDS: *HR* Heparin 5,000 UNIT/ML VIAL SQ SCH (21:22)
[2022-02-07 05:10] LABS: VBG HCO3 29 mEq/L (21-27); VBG PCO2 53 mmHg (41-51); VBG PH 7.34 pH Units (7.32-7.42); VBG PO2 110 mmHg (25-50)
[2022-02-07 05:18] LABS: Calcium 8.5 mg/dL (8.6-10.3); Magnesium 2.5 mg/dL (1.6-2.6); Phosphorous 4.6 mg/dL (2.7-4.5); Potassium 4.4 mEq/L (3.5-5.1)
[2022-02-07] MEDS: *HR* Heparin 5,000 UNIT/ML VIAL SQ SCH ×3 (06:12→21:22)
[2022-02-07] MEDS ORDERED: LENALIDOMIDE 10 MG PO SCH (09:00)
[2022-02-07] MEDS: allopurinoL 100 MG TABLET PO SCH (09:24)
[2022-02-07] MEDS: hydrALAZINE 25 MG TABLET PO SCH ×3 (09:24→21:22)
[2022-02-07] MEDS: Aspirin 81 MG TAB.CHEW PO SCH (09:24)
[2022-02-07] MEDS: Isosorbide MONOnitrate (24 HR) 60 MG TAB.ER.24H PO SCH (09:24)
[2022-02-07] MEDS ORDERED: 0.9 % Sodium Chloride 500 ML IVC ONE (09:59)
[2022-02-07] MEDS: 0.9 % Sodium Chloride 1,000 ML IVC SCH ×2 (10:07→17:56)
[2022-02-07 11:52] LABS: Hepatitis B Surface Antigen Nonreactive (Nonreactive)
[2022-02-07 12:20] LABS: Hepatitis C Virus Antibody Nonreactive (Nonreactive)
[2022-02-07 12:21] LABS: Hepatitis B Core IgM Nonreactive (Nonreactive)
[2022-02-07 12:22] LABS: Hepatitis A Antibody IgM Nonreactive (Nonreactive)
[2022-02-08 02:17] LABS: Basophils % 0.2 %; Hematocrit 29.2 % (35.3-44.9); Immature Granulocytes % 0.4 % (0-4); Mean Corpuscular Volume 101.4 fL (83.0-100.0); Mean Platelet Volume 10.9 fL (9.4-12.4); Red Blood Count 2.88 M/mcL (3.82-4.97); Red Cell Distribution Width 17.1 % (11.5-14.5)
[2022-02-08 02:19] LABS: Eosinophils # 0.1 K/mcL (0.0-0.6); Eosinophils % 1.4 %; Lymphocytes # 0.8 K/mcL (0.6-4.6); Lymphocytes % 15.5 %; Mean Corpuscular HGB Conc 27.4 g/dL (31.6-35.5); Mean Corpuscular Hemoglobin 27.8 pg (28.0-33.3); Monocytes # 0.4 K/mcL (0.0-1.3); Monocytes % 8.2 %; Neutrophils # 3.8 K/mcL (1.6-8.9); Platelet Count 100 K/mcL (140-400); Segmented Neutrophils % 74.3 %; White Blood Count 5.1 K/mcL (4.3-11.1)
[2022-02-08 02:47] LABS: Calcium 8.5 mg/dL (8.6-10.3); Potassium 4.5 mEq/L (3.5-5.1)
[2022-02-08] MEDS: *HR* Heparin 5,000 UNIT/ML VIAL SQ SCH ×3 (05:26→20:49)
[2022-02-08] MEDS: hydrALAZINE 25 MG TABLET PO SCH ×3 (08:58→20:49)
[2022-02-08] MEDS: Aspirin 81 MG TAB.CHEW PO SCH (08:58)
[2022-02-08] MEDS: Isosorbide MONOnitrate (24 HR) 60 MG TAB.ER.24H PO SCH (08:58)
[2022-02-08] MEDS: allopurinoL 100 MG TABLET PO SCH (08:58)
[2022-02-09] MEDS: *HR* Heparin 5,000 UNIT/ML VIAL SQ SCH ×3 (06:13→20:43)
[2022-02-09] MEDS: hydrALAZINE 25 MG TABLET PO SCH ×3 (08:27→20:43)
[2022-02-09] MEDS: Aspirin 81 MG TAB.CHEW PO SCH (08:27)
[2022-02-09] MEDS: Isosorbide MONOnitrate (24 HR) 60 MG TAB.ER.24H PO SCH (08:27)
[2022-02-09] MEDS: allopurinoL 100 MG TABLET PO SCH (08:27)
[2022-02-09 08:47] LABS: Calcium 8.5 mg/dL (8.6-10.3); Potassium 4.5 mEq/L (3.5-5.1)
[2022-02-10 01:46] LABS: Calcium 8.6 mg/dL (8.6-10.3); Potassium 4.4 mEq/L (3.5-5.1)
[2022-02-10] MEDS: *HR* Heparin 5,000 UNIT/ML VIAL SQ SCH ×3 (05:15→21:24)
[2022-02-10] MEDS: allopurinoL 100 MG TABLET PO SCH (07:44)
[2022-02-10] MEDS: Aspirin 81 MG TAB.CHEW PO SCH (07:44)
[2022-02-10] MEDS: hydrALAZINE 25 MG TABLET PO SCH ×3 (07:44→21:29)
[2022-02-10] MEDS: Isosorbide MONOnitrate (24 HR) 60 MG TAB.ER.24H PO SCH (07:44)
[2022-02-11] MEDS: *HR* Heparin 5,000 UNIT/ML VIAL SQ SCH ×2 (05:13→15:53)
[2022-02-11 07:28] LABS: Calcium 8.8 mg/dL (8.6-10.3); Potassium 4.6 mEq/L (3.5-5.1)
[2022-02-11] MEDS: Aspirin 81 MG TAB.CHEW PO SCH (09:11)
[2022-02-11] MEDS: allopurinoL 100 MG TABLET PO SCH (09:11)
[2022-02-11] MEDS: Isosorbide MONOnitrate (24 HR) 60 MG TAB.ER.24H PO SCH (09:11)
[2022-02-11] MEDS: hydrALAZINE 25 MG TABLET PO SCH ×2 (09:11→15:57)
[2022-02-11 15:50] VITALS: BP 136/56; PULSE 58; TEMP 99; O2SAT 94
== END 2022-02-11 16:12 | disposition hospice, home (50) | DRG 683 ==
LOC: 2ANU → SUATTDRO 15:11
PROVIDERS: ADMIT Internal Medicine; ATTEND Internal Medicine